=== PATIENT | male | born 1975 | race Caucasian/White ===

== ENCOUNTER 2020-07-20 16:42 | Inpatient (IN) | payer MEDICAID ==
[2020-07-20] MEDS ORDERED: Sodium Chloride 0.9% 1,000 ML IV SCH ×2 (17:00→22:30)
[2020-07-20] MEDS ORDERED: Sodium Chloride 0.9% 10 ML Syringe FLUSH PRN (17:00)
[2020-07-20] MEDS ORDERED: cefTRIAXone 2 GM in Sodium Chloride 0.9% 100 ML IV ONE (17:02)
--- NOTE | 2020-07-20 17:14 | EDM.PDOC ---
<Arnie Carrillo - Last Filed: 07/20/20 18:41> ED HPI GENERAL MEDICAL PROBLEM - General Chief Complaint: Lower Extremity Injury/Pain Stated Complaint: RT LEG INFECTION/SENT BY HERNANDEZ Time Seen by Provider: 07/20/20 16:52 Source of Information: Reports: Patient History Limitations: Reports: No Limitations - History of Present Illness INITIAL COMMENTS - FREE TEXT/NARRATIVE: The patient presents with right leg pain and swelling. He noticed this yesterday. He has an abrasion to his right lateral ankle for the past few weeks. He has swelling in his groin and to the anterior lower leg. There is erythema as well. He denies any recent injury. He has no fever or chills. He has no chest pain, shortness of breath, abdominal pain, nausea or vomiting. He has a history of hypertension but no history of DVT or PE. He is not sure if it is related but about 10 days ago he started having chapped lips and he has been using some salve and they are not going away. Onset: Gradual Duration: Day(s): Location: Reports: Lower Extremity, Right (leg) Quality: Reports: Sharp Severity: Moderate Improves with: Reports: Immobilization Worsens with: Reports: Movement Context: Denies: Trauma Associated Symptoms: Reports: No Other Symptoms Right Lower Leg Pain Score (Numeric/FACES): 8 - Related Data Allergies Allergy/AdvReac Type Severity Reaction Status Date / Time No Known Allergies Allergy Verified 07/20/20 16:55 Home Meds: Home Meds ARIPiprazole [Abilify] 15 mg PO DAILY 07/20/20 [History] amLODIPine [Norvasc] 10 mg PO DAILY 07/20/20 [History] lisinopriL [Lisinopril] 10 mg PO DAILY 07/20/20 [History] Past Medical History Cardiovascular History: Reports: Hypertension Respiratory History: Reports: Asthma Other Respiratory History: sports induced as a child Psychiatric History: Reports: Bipolar - Infectious Disease History Infectious Disease History: Reports: Chicken Pox, Hepatitis C - Past Surgical History HEENT Surgical History: Reports: Oral Surgery Social & Family History - Family History Family Medical History: No Pertinent Family History - Tobacco Use Tobacco Use Status *Q: Current Every Day Tobacco User Years of Tobacco use: 7 Packs/Tins Daily: 1 - Caffeine Use Caffeine Use: Reports: Coffee, Energy Drinks - Recreational Drug Use Recreational Drug Use: Yes Drug Use in Last 12 Months: No Review of Systems - Review of Systems Review Of Systems: See Below Constitutional: Reports: No Symptoms Eyes: Reports: No Symptoms Ears: Reports: No Symptoms Nose: Reports: No Symptoms Mouth/Throat: Reports: No Symptoms Respiratory: Reports: No Symptoms Cardiovascular: Reports: No Symptoms GI/Abdominal: Reports: No Symptoms Genitourinary: Reports: No Symptoms Musculoskeletal: Reports: Other (Pain, swelling and erythema to the right leg) ED EXAM, GENERAL - Physical Exam Exam: See Below Exam Limited By: No Limitations General Appearance: Alert, No Apparent Distress Ears: Normal External Exam Nose: Normal Inspection Throat/Mouth: Other (Dry chapped lips) Head: Atraumatic, Normocephalic Neck: Normal Inspection Respiratory/Chest: No Respiratory Distress, Lungs Clear, Normal Breath Sounds Cardiovascular: Regular Rate, Rhythm, No Edema, No Murmur GI/Abdominal: Soft, Non-Tender, No Organomegaly, No Mass Extremities: Other (Edema to the right groin. Erythem and edema to the front of the right ankle and lower leg with streaking up the lower leg just below the right knee. Edema to the lower leg and ankle with an old abrasion to the right lateral ankle.) Course - Re-Assessments/Exams Free Text/Narrative Re-Assessment/Exam: 07/20/20 17:14 I ordered an IV NS at 125ml?hr, blood cultures, lactic acid, labs, x-ray of his tib/fib on the right, US of his right leg and rocephin 2 grams IV. 07/20/20 18:18 His x-ray shows no fracture. His WBC was elevated at 27.42. His Hgb was low at 11.5. I am waiting for the rest of his labs and US. 07/20/20 18:41 His PT and PTT look good. His K was low at 2.5. I have ordered potassium 40meq PO. His lactic acid is low at 2.2. 07/20/20 18:42 My nursing staff is having trouble getting an IV. [employer] MACHINIST is coming in to try. Departure - Departure Disposition: Admitted As Inpatient 68 Clinical Impression: Cellulitis of right leg, Inguinal lymphadenopathy - Discharge Information Referrals: Arya Mccray MD [Primary Care Provider] - Forms: ED Department Discharge Sepsis Event Note (ED) - Evaluation Sepsis Screening Result: No Definite Risk <Jimbo Urias Lorena - Last Filed: 07/20/20 19:44> Course - Vital Signs Last Recorded V/S: Last Vital Signs Temp 36.9 C 07/20/20 16:50 Pulse 108 H 07/20/20 16:50 Resp 20 07/20/20 16:50 BP 157/89 H 07/20/20 16:50 Pulse Ox 100 07/20/20 16:50 - Orders/Labs/Meds Orders: Active Orders 24 hr Category Date Time Status Peripheral IV Care [RC] . DIRECTED Care 07/20/20 17:01 Active CORONAVIRUS COVID-19 SISSY [MOLEC] Stat Lab 07/20/20 19:15 Received CULTURE BLOOD [BC] Stat Lab 07/20/20 17:43 Received CULTURE BLOOD [BC] Stat Lab 07/20/20 18:38 Received Sodium Chloride 0.9% [Normal Saline] 1,000 ml Med 07/20/20 17:00 Active IV ASDIRECTED Sodium Chloride 0.9% [Saline Flush] Med 07/20/20 17:00 Active 10 ml FLUSH ASDIRECTED PRN Blood Culture x2 Reflex Set [OM.PC] Stat Oth 07/20/20 17:01 Ordered Peripheral IV Insertion Adult [OM.PC] Stat Oth 07/20/20 17:00 Ordered Medication Orders Sodium Chloride (Normal Saline) 1,000 mls @ 125 mls/hr IV ASDIRECTED DESHAWN Sodium Chloride (Sodium Chloride 0.9% 10 Ml Syringe) 10 ml FLUSH ASDIRECTED PRN PRN Reason: Keep Vein Open Last Admin: 07/20/20 19:30 Dose: 10 ml Documented by: Labs: Laboratory Tests 07/20/20 07/20/20 07/20/20 Range/Units 17:42 17:42 17:42 WBC 27.42 H (4.23-9.07) K/mm3 RBC 3.95 L (4.63-6.08) M/mm3 Hgb 11.5 L (13.7-17.5) gm/dl Hct 34.7 L (40.1-51.0) % MCV 87.8 (79.0-92.2) fl MCH 29.1 (25.7-32.2) pg MCHC 33.1 (32.2-35.5) g/dl RDW Std Deviation 41.3 (35.1-43.9) fL Plt Count 247 (163-337) K/mm3 MPV 10.6 (9.4-12.3) fl Neut % (Auto) 77.6 H (34.0-67.9) % Lymph % (Auto) 11.6 L (21.8-53.1) % Treasure % (Auto) 10.3 (5.3-12.2) % Eos % (Auto) 0 L (0.8-7.0) Baso % (Auto) 0.1 (0.1-1.2) % Neut # (Auto) 21.26 H (1.78-5.38) K/mm3 Lymph # (Auto) 3.19 (1.32-3.57) K/mm3 Treasure # (Auto) 2.82 H (0.30-0.82) K/mm3 Eos # (Auto) 0.01 L (0.04-0.54) K/mm3 Baso # (Auto) 0.03 (0.01-0.08) K/mm3 Manual Slide Review Abnormal smear PT (9.7-12.0) SECONDS INR APTT (21.7-31.4) SECONDS Sodium 140 (136-145) mEq/L Potassium 2.5 L (3.5-5.1) mEq/L Chloride 99 (98-107) mEq/L Carbon Dioxide 31 (21-32) mEq/L Anion Gap 12.5 (5-15) BUN 9 (7-18) mg/dL Creatinine 1.1 (0.7-1.3) mg/dL Est Cr Clr Drug Dosing 96.02 mL/min Estimated GFR (MDRD) > 60 (>60) mL/min BUN/Creatinine Ratio 8.2 L (14-18) Glucose 89 (74-106) mg/dL Lactic Acid 2.2 H* (0.4-2.0) mmol/L Calcium 9.1 (8.5-10.1) mg/dL Total Bilirubin 0.5 (0.2-1.0) mg/dL AST 12 L (15-37) U/L ALT 17 (16-63) U/L Alkaline Phosphatase 62 (46-116) U/L Total Protein 8.1 (6.4-8.2) g/dl Albumin 2.8 L (3.4-5.0) g/dl Globulin 5.3 gm/dL Albumin/Globulin Ratio 0.5 L (1-2) 07/20/20 Range/Units 17:42 WBC (4.23-9.07) K/mm3 RBC (4.63-6.08) M/mm3 Hgb (13.7-17.5) gm/dl Hct (40.1-51.0) % MCV (79.0-92.2) fl MCH (25.7-32.2) pg MCHC (32.2-35.5) g/dl RDW Std Deviation (35.1-43.9) fL Plt Count (163-337) K/mm3 MPV (9.4-12.3) fl Neut % (Auto) (34.0-67.9) % Lymph % (Auto) (21.8-53.1) % Treasure % (Auto) (5.3-12.2) % Eos % (Auto) (0.8-7.0) Baso % (Auto) (0.1-1.2) % Neut # (Auto) (1.78-5.38) K/mm3 Lymph # (Auto) (1.32-3.57) K/mm3 Treasure # (Auto) (0.30-0.82) K/mm3 Eos # (Auto) (0.04-0.54) K/mm3 Baso # (Auto) (0.01-0.08) K/mm3 Manual Slide Review PT 11.7 (9.7-12.0) SECONDS INR 1.10 APTT 30.6 (21.7-31.4) SECONDS Sodium (136-145) mEq/L Potassium (3.5-5.1) mEq/L Chloride (98-107) mEq/L Carbon Dioxide (21-32) mEq/L Anion Gap (5-15) BUN (7-18) mg/dL Creatinine (0.7-1.3) mg/dL Est Cr Clr Drug Dosing mL/min Estimated GFR (MDRD) (>60) mL/min BUN/Creatinine Ratio (14-18) Glucose (74-106) mg/dL Lactic Acid (0.4-2.0) mmol/L Calcium (8.5-10.1) mg/dL Total Bilirubin (0.2-1.0) mg/dL AST (15-37) U/L ALT (16-63) U/L Alkaline Phosphatase (46-116) U/L Total Protein (6.4-8.2) g/dl Albumin (3.4-5.0) g/dl Globulin gm/dL Albumin/Globulin Ratio (1-2) Meds: Medications Generic Name Dose Route Start Last Admin Trade Name Freq PRN Reason Stop Dose Admin Sodium Chloride 1,000 mls @ 125 mls/hr 07/20/20 17:00 Normal Saline IV ASDIRECTED DESHAWN Sodium Chloride 10 ml 07/20/20 17:00 07/20/20 19:30 Sodium Chloride 0.9% 10 Ml Syringe FLUSH 10 ml ASDIRECTED PRN Administration Keep Vein Open Discontinued Medications Generic Name Dose Route Start Last Admin Trade Name Freq PRN Reason Stop Dose Admin Ceftriaxone Sodium 2 gm/ 100 mls @ 200 mls/hr 07/20/20 17:02 Sodium Chloride IV 07/20/20 17:31 ONETIME ONE Sodium Chloride 1,000 mls @ 1,000 mls/hr 07/20/20 18:27 07/20/20 19:29 Normal Saline IV 07/20/20 19:26 1,000 mls/hr ONETIME ONE Administration Potassium Chloride 40 meq 07/20/20 18:27 07/20/20 19:34 Potassium Chloride 20 Meq Tab.Er PO 07/20/20 18:28 40 meq ONETIME ONE Administration - Radiology Interpretation Free Text/Narrative:: Venous Doppler of the right leg shows no findings of deep vein thrombosis there is a large lymph node within the right groin most of these nodes have normal echogenic fatty center with one lymph node having an abnormal hypoechoic area this lymph node measures 2.0 cm this could be inflammatory or neoplastic. Case discussed with Dr. Healy hospitalist the patient will be admitted to him he is already started on Rocephin. Departure - Departure Time of Disposition: 19:42 Sepsis Event Note (ED) - Focused Exam Vital Signs: Vital Signs Temp Pulse Resp BP Pulse Ox 07/20/20 16:50 36.9 C 108 H 20 157/89 H 100
--- NOTE | 2020-07-20 18:07 | CR ---
Tibia and fibula: AP and lateral views of the right tibia and fibula were obtained. Comparison: No previous study. No acute fracture or other bony abnormality is seen. Soft tissue swelling is noted anteriorly within the lower extremity. Impression: 1. Soft tissue swelling. 2. No acute osseous abnormality is appreciated. Diagnostic code #2
[2020-07-20] MEDS ORDERED: Sodium Chloride 0.9% 1,000 ML IV ONE (18:27)
[2020-07-20] MEDS ORDERED: Potassium Chloride 20 MEQ Tab.ER PO ONE (18:27)
--- NOTE | 2020-07-20 19:20 | US ---
Right lower extremity deep venous ultrasound: Duplex and color Doppler evaluation was obtained of the right common femoral, proximal greater saphenous, superficial femoral, popliteal, posterior tibial and peroneal veins. Left common femoral vein was also evaluated. Findings: Multiple lymph nodes are seen within the right groin. Most of these have hyperechoic centers with one area appearing hypoechoic and slightly abnormal in appearance and measuring 2.0 cm. Normal phasic flow, augmentation and compression is seen. Impression: 1. Lymph nodes within the right groin. Most of these lymph nodes have a normal echogenic fatty center with one lymph node having an abnormal hypoechoic area. Abnormal lymph node measures 2.0 cm. This can be abnormal because of neoplasm or inflammation. 2. No findings of deep venous thrombosis is seen with the right lower extremity or within the left common femoral vein. Diagnostic code #3
--- NOTE | 2020-07-20 19:50 | PCM.SN.2 ---
- Free Text/Narrative Note: Called to ER for difficult IV insertion. Multiple previous failed attempts my nursing staff. 20 gauge IV inserted in the left basilic vein. IV start kit utilized and inserted with standard protocol. Good blood return and flushed with 20 ml 0.9NS. Secured with transparent dressing and tape. Reported to nursing staff.
[2020-07-20] MEDS ORDERED: Sodium Chloride 0.9% 100 ML ONE (19:59)
[2020-07-20] MEDS ORDERED: cefTRIAXone 2 GM AdvVial IV ONE (19:59)
[2020-07-20] MEDS ORDERED: Ondansetron 4 MG Tab.DIS PO PRN (20:23)
[2020-07-20] MEDS: Potassium Chloride 10 MEQ in Premix Bag 1 BAG IV SCH ×3 (21:33→23:37)
[2020-07-21] MEDS: Potassium Chloride 10 MEQ in Premix Bag 1 BAG IV SCH ×5 (00:41→13:33)
--- NOTE | 2020-07-21 08:11 | PCM.HP.2 ---
H&P History of Present Illness - General Date of Service: 07/20/20 Admit Problem/Dx: Admission Diagnosis/Problem Admission Diagnosis/Problem Cellulitis - History of Present Illness Initial Comments - Free Text/Narative: 45-year-old male who presents to the emergency department after hitting his right ankle at work approximately 1 month ago. Patient states that over the last 24+ hours the pain has worsened and the swelling has gotten severe. He also noted that he has some swelling and nodules in his right side of his groin. Patient states he has had some fevers type feeling and significant sharp pain in that right leg. He has a history of bipolar disorder and hypertension otherwise nothing significant and no diabetes. In the emergency department his white blood cell count was 27,000 and lactic acid of 2.2. Patient was started on Rocephin in the emergency department and had blood cultures. X-ray of the right lower extremity showed no lytic lesions and lower extremity Doppler showed lymph nodes within the right groin. There is one abnormal lymph node measuring 2.0 cm. This can be abnormal because of neoplasm or inflammation. This is likely inflammation considering the underlying condition causing the lymphadenopathy. No DVT. Right Lower Leg Pain Score (Numeric/FACES): 8 - Related Data Allergies/Adverse Reactions: Allergies Allergy/AdvReac Type Severity Reaction Status Date / Time codeine Allergy Vomiting Verified 07/20/20 22:08 Home Medications: Home Meds ARIPiprazole [Abilify] 15 mg PO DAILY 07/20/20 [History] amLODIPine [Norvasc] 10 mg PO DAILY 07/20/20 [History] lisinopriL [Lisinopril] 10 mg PO DAILY 07/20/20 [History] Past Medical History Cardiovascular History: Reports: Hypertension Other Cardiovascular History: QT syndrome. "Heart murmur/palpitations". Respiratory History: Reports: Asthma Other Respiratory History: sports induced as a child Gastrointestinal History: Reports: GERD Neurological History: Reports: Migraines, Other (See Below) Other Neuro History: Brain "hemmorhage." Psychiatric History: Reports: Bipolar Hematologic History: Reports: B12 Deficiency Dermatologic History: Reports: Cellulitis - Infectious Disease History Infectious Disease History: Reports: Chicken Pox, Hepatitis C - Past Surgical History HEENT Surgical History: Reports: Oral Surgery Cardiovascular Surgical History: Reports: None Respiratory Surgical History: Reports: None GI Surgical History: Reports: None Social & Family History - Family History Family Medical History: No Pertinent Family History - Tobacco Use Tobacco Use Status *Q: Current Every Day Tobacco User Years of Tobacco use: 7 Packs/Tins Daily: 1 - Caffeine Use Caffeine Use: Reports: Coffee, Energy Drinks, Soda, Tea - Recreational Drug Use Recreational Drug Use: No Drug Use in Last 12 Months: No H&P Review of Systems - Review of Systems: Review Of Systems: Comprehensive ROS is negative, except as noted in HPI. Exam - Exam Exam: See Below - Vital Signs Vital Signs: Last Vital Signs Temp 98.6 F 07/21/20 07:41 Pulse 87 07/21/20 07:41 Resp 12 07/21/20 07:41 BP 137/80 07/21/20 07:41 Pulse Ox 99 07/21/20 07:41 Weight: 214 lb 3.2 oz - Exam Quality Assessment: No: Supplemental Oxygen General: Alert, Oriented, 4 HEENT: Conjunctiva Clear, Mucosa Moist & [place], Normal Nasal Septum, Other (Lips have open cracked sores worse on the bottom lip) Neck: Supple, Trachea Midline, 2 Lungs: Clear to Auscultation, Normal Respiratory Effort Cardiovascular: Regular Rate, Regular Rhythm GI/Abdominal Exam: Normal Bowel Sounds, Soft, Non-Tender, No Organomegaly, No Distention, No Abnormal Bruit (Male) Exam: Inguinal Lymphadenopathy, Other (Right inguinal lymphadenopathy) Back Exam: Normal Inspection, Full Range of Motion, NT Extremities: Other (Right lower extremity with erythema and tenderness. Swelling at the anterior aspect of the distal lower extremity.) Peripheral Pulses: 2+: Posterior Tibial (L), Posterior Tibial (R), Dorsalis Pedis (L), Dorsalis Pedis (R) Skin: Other (Skin breakdown at the right lateral malleolus) Neurological: Cranial Nerves Intact Neuro Extensive - Mental Status: Alert, Oriented x3, Normal Mood/Affect, Normal Cognition, Memory Intact Psychiatric: Alert, Normal Affect, Normal Mood - Patient Data Lab Results Last 24 hrs: Laboratory Results - last 24 hr 07/20/20 07/20/20 07/20/20 Range/Units 17:42 17:42 17:42 WBC 27.42 H (4.23-9.07) K/mm3 RBC 3.95 L (4.63-6.08) M/mm3 Hgb 11.5 L (13.7-17.5) gm/dl Hct 34.7 L (40.1-51.0) % MCV 87.8 (79.0-92.2) fl MCH 29.1 (25.7-32.2) pg MCHC 33.1 (32.2-35.5) g/dl RDW Std Deviation 41.3 (35.1-43.9) fL Plt Count 247 (163-337) K/mm3 MPV 10.6 (9.4-12.3) fl Neut % (Auto) 77.6 H (34.0-67.9) % Lymph % (Auto) 11.6 L (21.8-53.1) % Price % (Auto) 10.3 (5.3-12.2) % Eos % (Auto) 0 L (0.8-7.0) Baso % (Auto) 0.1 (0.1-1.2) % Neut # (Auto) 21.26 H (1.78-5.38) K/mm3 Lymph # (Auto) 3.19 (1.32-3.57) K/mm3 Price # (Auto) 2.82 H (0.30-0.82) K/mm3 Eos # (Auto) 0.01 L (0.04-0.54) K/mm3 Baso # (Auto) 0.03 (0.01-0.08) K/mm3 Manual Slide Review Abnormal smear PT (9.7-12.0) SECONDS INR APTT (21.7-31.4) SECONDS Sodium 140 (136-145) mEq/L Potassium 2.5 L (3.5-5.1) mEq/L Chloride 99 (98-107) mEq/L Carbon Dioxide 31 (21-32) mEq/L Anion Gap 12.5 (5-15) BUN 9 (7-18) mg/dL Creatinine 1.1 (0.7-1.3) mg/dL Est Cr Clr Drug Dosing 96.02 mL/min Estimated GFR (MDRD) > 60 (>60) mL/min BUN/Creatinine Ratio 8.2 L (14-18) Glucose 89 (74-106) mg/dL Lactic Acid 2.2 H* (0.4-2.0) mmol/L Calcium 9.1 (8.5-10.1) mg/dL Magnesium (1.8-2.4) mg/dl Total Bilirubin 0.5 (0.2-1.0) mg/dL AST 12 L (15-37) U/L ALT 17 (16-63) U/L Alkaline Phosphatase 62 (46-116) U/L C-Reactive Protein (<1.0) mg/dL Total Protein 8.1 (6.4-8.2) g/dl Albumin 2.8 L (3.4-5.0) g/dl Globulin 5.3 gm/dL Albumin/Globulin Ratio 0.5 L (1-2) SARS-CoV-2 RNA (SISSY) (NEGATIVE) 07/20/20 07/20/20 07/20/20 Range/Units 17:42 19:15 23:32 WBC (4.23-9.07) K/mm3 RBC (4.63-6.08) M/mm3 Hgb (13.7-17.5) gm/dl Hct (40.1-51.0) % MCV (79.0-92.2) fl MCH (25.7-32.2) pg MCHC (32.2-35.5) g/dl RDW Std Deviation (35.1-43.9) fL Plt Count (163-337) K/mm3 MPV (9.4-12.3) fl Neut % (Auto) (34.0-67.9) % Lymph % (Auto) (21.8-53.1) % Price % (Auto) (5.3-12.2) % Eos % (Auto) (0.8-7.0) Baso % (Auto) (0.1-1.2) % Neut # (Auto) (1.78-5.38) K/mm3 Lymph # (Auto) (1.32-3.57) K/mm3 Price # (Auto) (0.30-0.82) K/mm3 Eos # (Auto) (0.04-0.54) K/mm3 Baso # (Auto) (0.01-0.08) K/mm3 Manual Slide Review PT 11.7 (9.7-12.0) SECONDS INR 1.10 APTT 30.6 (21.7-31.4) SECONDS Sodium (136-145) mEq/L Potassium (3.5-5.1) mEq/L Chloride (98-107) mEq/L Carbon Dioxide (21-32) mEq/L Anion Gap (5-15) BUN (7-18) mg/dL Creatinine (0.7-1.3) mg/dL Est Cr Clr Drug Dosing mL/min Estimated GFR (MDRD) (>60) mL/min BUN/Creatinine Ratio (14-18) Glucose (74-106) mg/dL Lactic Acid 0.7 (0.4-2.0) mmol/L Calcium (8.5-10.1) mg/dL Magnesium (1.8-2.4) mg/dl Total Bilirubin (0.2-1.0) mg/dL AST (15-37) U/L ALT (16-63) U/L Alkaline Phosphatase (46-116) U/L C-Reactive Protein (<1.0) mg/dL Total Protein (6.4-8.2) g/dl Albumin (3.4-5.0) g/dl Globulin gm/dL Albumin/Globulin Ratio (1-2) SARS-CoV-2 RNA (SISSY) Negative (NEGATIVE) 07/21/20 07/21/20 Range/Units 04:53 04:53 WBC 17.56 H (4.23-9.07) K/mm3 RBC 3.80 L (4.63-6.08) M/mm3 Hgb 11.2 L (13.7-17.5) gm/dl Hct 33.6 L (40.1-51.0) % MCV 88.4 (79.0-92.2) fl MCH 29.5 (25.7-32.2) pg MCHC 33.3 (32.2-35.5) g/dl RDW Std Deviation 42.2 (35.1-43.9) fL Plt Count 239 (163-337) K/mm3 MPV 11.5 (9.4-12.3) fl Neut % (Auto) 74.9 H (34.0-67.9) % Lymph % (Auto) 14.7 L (21.8-53.1) % Price % (Auto) 9.6 (5.3-12.2) % Eos % (Auto) 0.3 L (0.8-7.0) Baso % (Auto) 0.2 (0.1-1.2) % Neut # (Auto) 13.16 H (1.78-5.38) K/mm3 Lymph # (Auto) 2.59 (1.32-3.57) K/mm3 Price # (Auto) 1.68 H (0.30-0.82) K/mm3 Eos # (Auto) 0.05 (0.04-0.54) K/mm3 Baso # (Auto) 0.03 (0.01-0.08) K/mm3 Manual Slide Review Abnormal smear PT (9.7-12.0) SECONDS INR APTT (21.7-31.4) SECONDS Sodium 142 (136-145) mEq/L Potassium 2.7 L (3.5-5.1) mEq/L Chloride 105 (98-107) mEq/L Carbon Dioxide 27 (21-32) mEq/L Anion Gap 12.7 (5-15) BUN 10 (7-18) mg/dL Creatinine 1.0 (0.7-1.3) mg/dL Est Cr Clr Drug Dosing 105.62 mL/min Estimated GFR (MDRD) > 60 (>60) mL/min BUN/Creatinine Ratio 10.0 L (14-18) Glucose 97 (74-106) mg/dL Lactic Acid (0.4-2.0) mmol/L Calcium 8.7 (8.5-10.1) mg/dL Magnesium 1.8 (1.8-2.4) mg/dl Total Bilirubin 0.5 (0.2-1.0) mg/dL AST 19 (15-37) U/L ALT 17 (16-63) U/L Alkaline Phosphatase 57 (46-116) U/L C-Reactive Protein 22.7 H* (<1.0) mg/dL Total Protein 7.6 (6.4-8.2) g/dl Albumin 2.5 L (3.4-5.0) g/dl Globulin 5.1 gm/dL Albumin/Globulin Ratio 0.5 L (1-2) SARS-CoV-2 RNA (SISSY) (NEGATIVE) Result Diagrams: 07/21/20 04:53 07/21/20 04:53 Sepsis Event Note - Evaluation Sepsis Screening Result: No Definite Risk - Focused Exam Vital Signs: Vital Signs Temp Pulse Resp BP Pulse Ox 07/21/20 07:41 98.6 F 87 12 137/80 99 07/21/20 03:40 98.2 F 88 19 152/84 H 96 07/20/20 23:41 99.1 F 92 18 151/79 H 95 07/20/20 20:39 98.1 F 108 H 19 141/90 H 98 - Problem List (1) Hypokalemia SNOMED Code(s): 36829195 ICD Code: E87.6 - HYPOKALEMIA Status: Acute Current Visit: Yes (2) Hypoalbuminemia SNOMED Code(s): 375945366 ICD Code: E88.09 - OTH DISORDERS OF PLASMA-PROTEIN METABOLISM, NEC Status: Acute Current Visit: Yes (3) Cellulitis of right leg SNOMED Code(s): 308289342 ICD Code: L03.115 - CELLULITIS OF RIGHT LOWER LIMB Status: Acute Current Visit: Yes (4) Inguinal lymphadenopathy SNOMED Code(s): 418563972 ICD Code: R59.0 - LOCALIZED ENLARGED LYMPH NODES Status: Acute Current Visit: Yes Problem List Initiated/Reviewed/Updated: Yes Orders Last 24hrs: Active Orders 24 hr Category Date Time Status Admission Status [Patient Status] [ADT] Routine ADT 07/20/20 20:14 Active Oxygen Therapy [RC] PRN Care 07/20/20 20:23 Active Up ad [place] [RC] BID Care 07/20/20 20:23 Active VTE/DVT Education [RC] DAILY Care 07/20/20 20:23 Active Vital Signs [RC] Q4HR Care 07/20/20 20:23 Active Regular Diet [DIET] Diet 07/21/20 Breakfast Active CULTURE BLOOD [BC] Stat Lab 07/20/20 17:43 Received CULTURE BLOOD [BC] Stat Lab 07/20/20 18:38 Received PROCALCITONIN [REF] Routine Lab 07/20/20 18:33 Received ARIPiprazole [Abilify] Med 07/21/20 09:00 Active 15 mg PO DAILY Acetaminophen [TylenoL] Med 07/20/20 20:23 Active 650 mg PO Q4H PRN Enoxaparin [Lovenox] Med 07/21/20 09:00 Active 40 mg SUBCUT DAILY Ondansetron [Zofran ODT] Med 07/20/20 20:23 Active 4 mg PO Q4H PRN Sodium Chloride 0.9% [Normal Saline] 1,000 ml Med 07/20/20 17:00 Active IV ASDIRECTED Sodium Chloride 0.9% [Saline Flush] Med 07/20/20 17:00 Active 10 ml FLUSH ASDIRECTED PRN amLODIPine [Norvasc] Med 07/21/20 09:00 Active 10 mg PO DAILY cefTRIAXone [Rocephin] 2 gm Med 07/21/20 18:00 Active Sodium Chloride 0.9% [Normal Saline] 100 ml IV Q24H lisinopriL [Prinivil] Med 07/21/20 09:00 Active 10 mg PO DAILY oxyCODONE Med 07/20/20 20:23 Active 5 mg PO Q4H PRN Blood Culture x2 Reflex Set [OM.PC] Stat Oth 07/20/20 17:01 Ordered Peripheral IV Insertion Adult [OM.PC] Stat Oth 07/20/20 17:00 Ordered Resuscitation Status Routine Resus Stat 07/20/20 20:23 Ordered Medication Orders Acetaminophen (Acetaminophen 325 Mg Tab) 650 mg PO Q4H PRN PRN Reason: Pain (Mild 1-3)/fever Amlodipine Besylate (Amlodipine 10 Mg Tab) 10 mg PO DAILY [facility] Aripiprazole (Aripiprazole 10 Mg Tab) 15 mg PO DAILY [facility] Enoxaparin Sodium (Enoxaparin 40 Mg/0.4 Ml Syringe) 40 mg SUBCUT DAILY [facility] Sodium Chloride (Normal Saline) 1,000 mls @ 125 mls/hr IV ASDIRECTED [facility] Last Admin: 07/20/20 23:38 Dose: 125 mls/hr Documented by: DILEEP Ceftriaxone Sodium 2 gm/ (Sodium Chloride) 100 mls @ 200 mls/hr IV Q24H [facility] Lisinopril (Lisinopril 10 Mg Tab) 10 mg PO DAILY [facility] Ondansetron HCl (Ondansetron 4 Mg Tab.Dis) 4 mg PO Q4H PRN PRN Reason: nausea, able to take PO Oxycodone HCl (Oxycodone 5 Mg Tab) 5 mg PO Q4H PRN PRN Reason: Pain (moderate 4-6) Sodium Chloride (Sodium Chloride 0.9% 10 Ml Syringe) 10 ml FLUSH ASDIRECTED PRN PRN Reason: Keep Vein Open Last Admin: 07/20/20 19:30 Dose: 10 ml Documented by: SHILA Assessment/Plan Comment:: Assessment 44-year-old male with right lower extremity cellulitis. Cellulitis occurred post traumatic event of hitting the right lateral malleolus with subsequent skin breakdown. Right lower extremity cellulitis * Initial trauma occurred 1 month ago at work. * White count significantly elevated at 27,000 with lactic acid of 2.2. * Started on Rocephin in the emergency department * Patient complains of moderate to severe pain. Hypokalemia/hypoalbuminemia Moderate to severe protein calorie malnutrition Ulceration of the lips likely secondary to herpes simplex * Patient states he has not been eating well for the last 10 days since he started developing ulcers on his lower lip. * Potassium of 2.5 * Albumin 2.8 * Patient did eat well in the emergency department when given a turkey sandwich. Chronic medical: Bipolar and hypertension Home medications include Abilify, Norvasc, and lisinopril Plan * Admit to floor * Continue Rocephin * Dietary consult * Replace electrolytes * Await blood cultures * IV fluids, normal saline at 125 mL/h until lactic acid is less than 2 * Continue home medications * VTE prophylaxis with Lovenox * CODE STATUS: Full code - Mortality Measure Prognosis:: Good
[2020-07-21] MEDS ORDERED: amLODIPine 5 MG Tab PO SCH (09:00)
[2020-07-21] MEDS: Enoxaparin 40 MG/0.4 ML Syringe SUBCUT SCH (09:52)
[2020-07-21] MEDS: ARIPiprazole 10 MG Tab PO SCH (09:53)
[2020-07-21] MEDS: Potassium Chloride 20 MEQ Tab.ER PO SCH ×2 (09:54→20:12)
[2020-07-21] MEDS: Magnesium Oxide 400 MG Tab PO SCH ×2 (09:54→20:12)
[2020-07-21] MEDS: amLODIPine 10 MG Tab PO SCH (09:55)
[2020-07-21] MEDS: Lisinopril 10 MG Tab PO SCH (09:55)
[2020-07-21] MEDS: oxyCODONE 5 MG Tab PO PRN ×2 (10:04→17:16)
--- NOTE | 2020-07-21 10:23 | PCM.PN ---
- General Info Date of Service: 07/21/20 Admission Dx/Problem (Free Text): Admission Diagnosis/Problem Admission Diagnosis/Problem Cellulitis Subjective Update: No significant change overnight. Patient continues to complain of moderate to severe pain of the right lower extremity. No fevers overnight. Lactic acid dropped to 0.7 with fluids. Functional Status: Reports: Pain Controlled (With pain medication) - Review of Systems General: Reports: No Symptoms HEENT: Reports: Other (Lips cracked and sore) Pulmonary: Reports: No Symptoms Cardiovascular: Reports: No Symptoms Gastrointestinal: Reports: No Symptoms Genitourinary: Reports: Other (Tender right inguinal lymphadenopathy) Musculoskeletal: Reports: No Symptoms Skin: Reports: No Symptoms Neurological: Reports: No Symptoms Psychiatric: Reports: No Symptoms - Patient Data Vitals - Most Recent: Last Vital Signs Temp 98.6 F 07/21/20 07:41 Pulse 87 07/21/20 07:41 Resp 12 07/21/20 07:41 BP 138/80 07/21/20 09:55 Pulse Ox 99 07/21/20 07:41 Weight - Most Recent: 214 lb 3.2 oz I&O - Last 24 Hours: Intake & Output 07/20/20 07/21/20 07/21/20 22:59 06:59 14:59 Intake Total 1900 180 Output Total 450 Balance 1450 180 Lab Results Last 24 Hours: Laboratory Results - last 24 hr 07/20/20 07/20/20 07/20/20 Range/Units 17:42 17:42 17:42 WBC 27.42 H (4.23-9.07) K/mm3 RBC 3.95 L (4.63-6.08) M/mm3 Hgb 11.5 L (13.7-17.5) gm/dl Hct 34.7 L (40.1-51.0) % MCV 87.8 (79.0-92.2) fl MCH 29.1 (25.7-32.2) pg MCHC 33.1 (32.2-35.5) g/dl RDW Std Deviation 41.3 (35.1-43.9) fL Plt Count 247 (163-337) K/mm3 MPV 10.6 (9.4-12.3) fl Neut % (Auto) 77.6 H (34.0-67.9) % Lymph % (Auto) 11.6 L (21.8-53.1) % Elk % (Auto) 10.3 (5.3-12.2) % Eos % (Auto) 0 L (0.8-7.0) Baso % (Auto) 0.1 (0.1-1.2) % Neut # (Auto) 21.26 H (1.78-5.38) K/mm3 Lymph # (Auto) 3.19 (1.32-3.57) K/mm3 Elk # (Auto) 2.82 H (0.30-0.82) K/mm3 Eos # (Auto) 0.01 L (0.04-0.54) K/mm3 Baso # (Auto) 0.03 (0.01-0.08) K/mm3 Manual Slide Review Abnormal smear PT (9.7-12.0) SECONDS INR APTT (21.7-31.4) SECONDS Sodium 140 (136-145) mEq/L Potassium 2.5 L (3.5-5.1) mEq/L Chloride 99 (98-107) mEq/L Carbon Dioxide 31 (21-32) mEq/L Anion Gap 12.5 (5-15) BUN 9 (7-18) mg/dL Creatinine 1.1 (0.7-1.3) mg/dL Est Cr Clr Drug Dosing 96.02 mL/min Estimated GFR (MDRD) > 60 (>60) mL/min BUN/Creatinine Ratio 8.2 L (14-18) Glucose 89 (74-106) mg/dL Lactic Acid 2.2 H* (0.4-2.0) mmol/L Calcium 9.1 (8.5-10.1) mg/dL Magnesium (1.8-2.4) mg/dl Total Bilirubin 0.5 (0.2-1.0) mg/dL AST 12 L (15-37) U/L ALT 17 (16-63) U/L Alkaline Phosphatase 62 (46-116) U/L C-Reactive Protein (<1.0) mg/dL Total Protein 8.1 (6.4-8.2) g/dl Albumin 2.8 L (3.4-5.0) g/dl Globulin 5.3 gm/dL Albumin/Globulin Ratio 0.5 L (1-2) SARS-CoV-2 RNA (SISSY) (NEGATIVE) 07/20/20 07/20/20 07/20/20 Range/Units 17:42 19:15 23:32 WBC (4.23-9.07) K/mm3 RBC (4.63-6.08) M/mm3 Hgb (13.7-17.5) gm/dl Hct (40.1-51.0) % MCV (79.0-92.2) fl MCH (25.7-32.2) pg MCHC (32.2-35.5) g/dl RDW Std Deviation (35.1-43.9) fL Plt Count (163-337) K/mm3 MPV (9.4-12.3) fl Neut % (Auto) (34.0-67.9) % Lymph % (Auto) (21.8-53.1) % Elk % (Auto) (5.3-12.2) % Eos % (Auto) (0.8-7.0) Baso % (Auto) (0.1-1.2) % Neut # (Auto) (1.78-5.38) K/mm3 Lymph # (Auto) (1.32-3.57) K/mm3 Elk # (Auto) (0.30-0.82) K/mm3 Eos # (Auto) (0.04-0.54) K/mm3 Baso # (Auto) (0.01-0.08) K/mm3 Manual Slide Review PT 11.7 (9.7-12.0) SECONDS INR 1.10 APTT 30.6 (21.7-31.4) SECONDS Sodium (136-145) mEq/L Potassium (3.5-5.1) mEq/L Chloride (98-107) mEq/L Carbon Dioxide (21-32) mEq/L Anion Gap (5-15) BUN (7-18) mg/dL Creatinine (0.7-1.3) mg/dL Est Cr Clr Drug Dosing mL/min Estimated GFR (MDRD) (>60) mL/min BUN/Creatinine Ratio (14-18) Glucose (74-106) mg/dL Lactic Acid 0.7 (0.4-2.0) mmol/L Calcium (8.5-10.1) mg/dL Magnesium (1.8-2.4) mg/dl Total Bilirubin (0.2-1.0) mg/dL AST (15-37) U/L ALT (16-63) U/L Alkaline Phosphatase (46-116) U/L C-Reactive Protein (<1.0) mg/dL Total Protein (6.4-8.2) g/dl Albumin (3.4-5.0) g/dl Globulin gm/dL Albumin/Globulin Ratio (1-2) SARS-CoV-2 RNA (SISSY) Negative (NEGATIVE) 07/21/20 07/21/20 Range/Units 04:53 04:53 WBC 17.56 H (4.23-9.07) K/mm3 RBC 3.80 L (4.63-6.08) M/mm3 Hgb 11.2 L (13.7-17.5) gm/dl Hct 33.6 L (40.1-51.0) % MCV 88.4 (79.0-92.2) fl MCH 29.5 (25.7-32.2) pg MCHC 33.3 (32.2-35.5) g/dl RDW Std Deviation 42.2 (35.1-43.9) fL Plt Count 239 (163-337) K/mm3 MPV 11.5 (9.4-12.3) fl Neut % (Auto) 74.9 H (34.0-67.9) % Lymph % (Auto) 14.7 L (21.8-53.1) % Elk % (Auto) 9.6 (5.3-12.2) % Eos % (Auto) 0.3 L (0.8-7.0) Baso % (Auto) 0.2 (0.1-1.2) % Neut # (Auto) 13.16 H (1.78-5.38) K/mm3 Lymph # (Auto) 2.59 (1.32-3.57) K/mm3 Elk # (Auto) 1.68 H (0.30-0.82) K/mm3 Eos # (Auto) 0.05 (0.04-0.54) K/mm3 Baso # (Auto) 0.03 (0.01-0.08) K/mm3 Manual Slide Review Abnormal smear PT (9.7-12.0) SECONDS INR APTT (21.7-31.4) SECONDS Sodium 142 (136-145) mEq/L Potassium 2.7 L (3.5-5.1) mEq/L Chloride 105 (98-107) mEq/L Carbon Dioxide 27 (21-32) mEq/L Anion Gap 12.7 (5-15) BUN 10 (7-18) mg/dL Creatinine 1.0 (0.7-1.3) mg/dL Est Cr Clr Drug Dosing 105.62 mL/min Estimated GFR (MDRD) > 60 (>60) mL/min BUN/Creatinine Ratio 10.0 L (14-18) Glucose 97 (74-106) mg/dL Lactic Acid (0.4-2.0) mmol/L Calcium 8.7 (8.5-10.1) mg/dL Magnesium 1.8 (1.8-2.4) mg/dl Total Bilirubin 0.5 (0.2-1.0) mg/dL AST 19 (15-37) U/L ALT 17 (16-63) U/L Alkaline Phosphatase 57 (46-116) U/L C-Reactive Protein 22.7 H* (<1.0) mg/dL Total Protein 7.6 (6.4-8.2) g/dl Albumin 2.5 L (3.4-5.0) g/dl Globulin 5.1 gm/dL Albumin/Globulin Ratio 0.5 L (1-2) SARS-CoV-2 RNA (SISSY) (NEGATIVE) Med Orders - Current: Current Medications Acetaminophen (Acetaminophen 325 Mg Tab) 650 mg PO Q4H PRN PRN Reason: Pain (Mild 1-3)/fever Amlodipine Besylate (Amlodipine 10 Mg Tab) 10 mg PO DAILY [facility] Last Admin: 07/21/20 09:55 Dose: 10 mg Documented by: Aripiprazole (Aripiprazole 10 Mg Tab) 15 mg PO DAILY [facility] Last Admin: 07/21/20 09:53 Dose: 15 mg Documented by: Enoxaparin Sodium (Enoxaparin 40 Mg/0.4 Ml Syringe) 40 mg SUBCUT DAILY [facility] Last Admin: 07/21/20 09:52 Dose: 40 mg Documented by: Ceftriaxone Sodium 2 gm/ (Sodium Chloride) 100 mls @ 200 mls/hr IV Q24H [facility] Potassium Chloride 10 meq/ (Premix) 100 mls @ 100 mls/hr IV Q1H [facility] Stop: 07/21/20 12:59 Last Admin: 07/21/20 09:55 Dose: 100 mls/hr Documented by: Lisinopril (Lisinopril 10 Mg Tab) 10 mg PO DAILY [facility] Last Admin: 07/21/20 09:55 Dose: 10 mg Documented by: Magnesium Oxide (Magnesium Oxide 400 Mg Tab) 400 mg PO BID [facility] Last Admin: 07/21/20 09:54 Dose: 400 mg Documented by: Ondansetron HCl (Ondansetron 4 Mg Tab.Dis) 4 mg PO Q4H PRN PRN Reason: nausea, able to take PO Oxycodone HCl (Oxycodone 5 Mg Tab) 5 mg PO Q4H PRN PRN Reason: Pain (moderate 4-6) Last Admin: 07/21/20 10:04 Dose: 5 mg Documented by: Potassium Chloride (Potassium Chloride 20 Meq Tab.Er) 40 meq PO BID [facility] Stop: 07/21/20 21:01 Last Admin: 07/21/20 09:54 Dose: 40 meq Documented by: Sodium Chloride (Sodium Chloride 0.9% 10 Ml Syringe) 10 ml FLUSH ASDIRECTED PRN PRN Reason: Keep Vein Open Last Admin: 07/20/20 19:30 Dose: 10 ml Documented by: Discontinued Medications Amlodipine Besylate (Amlodipine 5 Mg Tab) 10 mg PO DAILY [facility] Ceftriaxone Sodium (Ceftriaxone 2 Gm Advvial) Confirm Administered Dose 2 gm IV .STK-MED ONE Stop: 07/20/20 20:00 Last Admin: 07/20/20 20:09 Dose: Not Given Documented by: Ceftriaxone Sodium 2 gm/ (Sodium Chloride) 100 mls @ 200 mls/hr IV ONETIME ONE Stop: 07/20/20 17:31 Last Admin: 07/20/20 20:07 Dose: 200 mls/hr Documented by: Sodium Chloride (Normal Saline) 1,000 mls @ 125 mls/hr IV ASDIRECTED [facility] Last Admin: 07/20/20 23:38 Dose: 125 mls/hr Documented by: Sodium Chloride (Normal Saline) 1,000 mls @ 1,000 mls/hr IV ONETIME ONE Stop: 07/20/20 19:26 Last Infusion: 07/20/20 20:08 Dose: 125 mls/hr Documented by: Sodium Chloride (Normal Saline) Confirm Administered Dose 100 mls @ as directed .ROUTE .STK-MED ONE Stop: 07/20/20 20:00 Last Admin: 07/20/20 20:09 Dose: Not Given Documented by: Potassium Chloride 10 meq/ (Premix) 100 mls @ 100 mls/hr IV Q1H [facility] Stop: 07/21/20 00:29 Last Admin: 07/21/20 00:41 Dose: 100 mls/hr Documented by: Sodium Chloride (Normal Saline) 1,000 mls @ 125 mls/hr IV ASDIRECTED [facility] Potassium Chloride (Potassium Chloride 20 Meq Tab.Er) 40 meq PO ONETIME ONE Stop: 07/20/20 18:28 Last Admin: 07/20/20 19:34 Dose: 40 meq Documented by: - Exam Quality Assessment: No: Supplemental Oxygen General: Alert, Oriented HEENT: Pupils Equal, Mucous Membr. Moist/[place], Other (Dry cracked lips with ulcerations of the lower lip) Neck: Supple Cardiovascular: Regular Rate GI/Abdominal Exam: Normal Bowel Sounds, Soft, Non-Tender, No Organomegaly, No D istention, No Abnormal Bruit, No Mass, Pelvis Stable Extremities: Other (No significant change from yesterday. Continue erythema and swelling of the right lower extremity and ankle. Skin breakdown at the right ankle.) Skin: Warm, Dry. No: Intact Neurological: No New Focal Deficit Psy/Mental Status: Alert, Normal Affect, Normal Mood - Patient Data Lab Results Last 24 hrs: Laboratory Results - last 24 hr 07/20/20 07/20/20 07/20/20 Range/Units 17:42 17:42 17:42 WBC 27.42 H (4.23-9.07) K/mm3 RBC 3.95 L (4.63-6.08) M/mm3 Hgb 11.5 L (13.7-17.5) gm/dl Hct 34.7 L (40.1-51.0) % MCV 87.8 (79.0-92.2) fl MCH 29.1 (25.7-32.2) pg MCHC 33.1 (32.2-35.5) g/dl RDW Std Deviation 41.3 (35.1-43.9) fL Plt Count 247 (163-337) K/mm3 MPV 10.6 (9.4-12.3) fl Neut % (Auto) 77.6 H (34.0-67.9) % Lymph % (Auto) 11.6 L (21.8-53.1) % Elk % (Auto) 10.3 (5.3-12.2) % Eos % (Auto) 0 L (0.8-7.0) Baso % (Auto) 0.1 (0.1-1.2) % Neut # (Auto) 21.26 H (1.78-5.38) K/mm3 Lymph # (Auto) 3.19 (1.32-3.57) K/mm3 Elk # (Auto) 2.82 H (0.30-0.82) K/mm3 Eos # (Auto) 0.01 L (0.04-0.54) K/mm3 Baso # (Auto) 0.03 (0.01-0.08) K/mm3 Manual Slide Review Abnormal smear PT (9.7-12.0) SECONDS INR APTT (21.7-31.4) SECONDS Sodium 140 (136-145) mEq/L Potassium 2.5 L (3.5-5.1) mEq/L Chloride 99 (98-107) mEq/L Carbon Dioxide 31 (21-32) mEq/L Anion Gap 12.5 (5-15) BUN 9 (7-18) mg/dL Creatinine 1.1 (0.7-1.3) mg/dL Est Cr Clr Drug Dosing 96.02 mL/min Estimated GFR (MDRD) > 60 (>60) mL/min BUN/Creatinine Ratio 8.2 L (14-18) Glucose 89 (74-106) mg/dL Lactic Acid 2.2 H* (0.4-2.0) mmol/L Calcium 9.1 (8.5-10.1) mg/dL Magnesium (1.8-2.4) mg/dl Total Bilirubin 0.5 (0.2-1.0) mg/dL AST 12 L (15-37) U/L ALT 17 (16-63) U/L Alkaline Phosphatase 62 (46-116) U/L C-Reactive Protein (<1.0) mg/dL Total Protein 8.1 (6.4-8.2) g/dl Albumin 2.8 L (3.4-5.0) g/dl Globulin 5.3 gm/dL Albumin/Globulin Ratio 0.5 L (1-2) SARS-CoV-2 RNA (SISSY) (NEGATIVE) 07/20/20 07/20/20 07/20/20 Range/Units 17:42 19:15 23:32 WBC (4.23-9.07) K/mm3 RBC (4.63-6.08) M/mm3 Hgb (13.7-17.5) gm/dl Hct (40.1-51.0) % MCV (79.0-92.2) fl MCH (25.7-32.2) pg MCHC (32.2-35.5) g/dl RDW Std Deviation (35.1-43.9) fL Plt Count (163-337) K/mm3 MPV (9.4-12.3) fl Neut % (Auto) (34.0-67.9) % Lymph % (Auto) (21.8-53.1) % Elk % (Auto) (5.3-12.2) % Eos % (Auto) (0.8-7.0) Baso % (Auto) (0.1-1.2) % Neut # (Auto) (1.78-5.38) K/mm3 Lymph # (Auto) (1.32-3.57) K/mm3 Elk # (Auto) (0.30-0.82) K/mm3 Eos # (Auto) (0.04-0.54) K/mm3 Baso # (Auto) (0.01-0.08) K/mm3 Manual Slide Review PT 11.7 (9.7-12.0) SECONDS INR 1.10 APTT 30.6 (21.7-31.4) SECONDS Sodium (136-145) mEq/L Potassium (3.5-5.1) mEq/L Chloride (98-107) mEq/L Carbon Dioxide (21-32) mEq/L Anion Gap (5-15) BUN (7-18) mg/dL Creatinine (0.7-1.3) mg/dL Est Cr Clr Drug Dosing mL/min Estimated GFR (MDRD) (>60) mL/min BUN/Creatinine Ratio (14-18) Glucose (74-106) mg/dL Lactic Acid 0.7 (0.4-2.0) mmol/L Calcium (8.5-10.1) mg/dL Magnesium (1.8-2.4) mg/dl Total Bilirubin (0.2-1.0) mg/dL AST (15-37) U/L ALT (16-63) U/L Alkaline Phosphatase (46-116) U/L C-Reactive Protein (<1.0) mg/dL Total Protein (6.4-8.2) g/dl Albumin (3.4-5.0) g/dl Globulin gm/dL Albumin/Globulin Ratio (1-2) SARS-CoV-2 RNA (SISSY) Negative (NEGATIVE) 07/21/20 07/21/20 Range/Units 04:53 04:53 WBC 17.56 H (4.23-9.07) K/mm3 RBC 3.80 L (4.63-6.08) M/mm3 Hgb 11.2 L (13.7-17.5) gm/dl Hct 33.6 L (40.1-51.0) % MCV 88.4 (79.0-92.2) fl MCH 29.5 (25.7-32.2) pg MCHC 33.3 (32.2-35.5) g/dl RDW Std Deviation 42.2 (35.1-43.9) fL Plt Count 239 (163-337) K/mm3 MPV 11.5 (9.4-12.3) fl Neut % (Auto) 74.9 H (34.0-67.9) % Lymph % (Auto) 14.7 L (21.8-53.1) % Elk % (Auto) 9.6 (5.3-12.2) % Eos % (Auto) 0.3 L (0.8-7.0) Baso % (Auto) 0.2 (0.1-1.2) % Neut # (Auto) 13.16 H (1.78-5.38) K/mm3 Lymph # (Auto) 2.59 (1.32-3.57) K/mm3 Elk # (Auto) 1.68 H (0.30-0.82) K/mm3 Eos # (Auto) 0.05 (0.04-0.54) K/mm3 Baso # (Auto) 0.03 (0.01-0.08) K/mm3 Manual Slide Review Abnormal smear PT (9.7-12.0) SECONDS INR APTT (21.7-31.4) SECONDS Sodium 142 (136-145) mEq/L Potassium 2.7 L (3.5-5.1) mEq/L Chloride 105 (98-107) mEq/L Carbon Dioxide 27 (21-32) mEq/L Anion Gap 12.7 (5-15) BUN 10 (7-18) mg/dL Creatinine 1.0 (0.7-1.3) mg/dL Est Cr Clr Drug Dosing 105.62 mL/min Estimated GFR (MDRD) > 60 (>60) mL/min BUN/Creatinine Ratio 10.0 L (14-18) Glucose 97 (74-106) mg/dL Lactic Acid (0.4-2.0) mmol/L Calcium 8.7 (8.5-10.1) mg/dL Magnesium 1.8 (1.8-2.4) mg/dl Total Bilirubin 0.5 (0.2-1.0) mg/dL AST 19 (15-37) U/L ALT 17 (16-63) U/L Alkaline Phosphatase 57 (46-116) U/L C-Reactive Protein 22.7 H* (<1.0) mg/dL Total Protein 7.6 (6.4-8.2) g/dl Albumin 2.5 L (3.4-5.0) g/dl Globulin 5.1 gm/dL Albumin/Globulin Ratio 0.5 L (1-2) SARS-CoV-2 RNA (SISSY) (NEGATIVE) Result Diagrams: 07/21/20 04:53 07/21/20 04:53 Sepsis Event Note - Evaluation Sepsis Screening Result: No Definite Risk - Focused Exam Vital Signs: Vital Signs Temp Pulse Resp BP Pulse Ox 07/21/20 09:55 138/80 07/21/20 07:41 98.6 F 87 12 137/80 99 07/21/20 03:40 98.2 F 88 19 152/84 H 96 07/20/20 23:41 99.1 F 92 18 151/79 H 95 - Problem List & Annotations (1) Hypokalemia SNOMED Code(s): 06383021 Code(s): E87.6 - HYPOKALEMIA Status: Acute Current Visit: Yes (2) Hypoalbuminemia SNOMED Code(s): 876964368 Code(s): E88.09 - OTH DISORDERS OF PLASMA-PROTEIN METABOLISM, NEC Status: Acute Current Visit: Yes (3) Cellulitis of right leg SNOMED Code(s): 447422358 Code(s): L03.115 - CELLULITIS OF RIGHT LOWER LIMB Status: Acute Current Visit: Yes (4) Inguinal lymphadenopathy SNOMED Code(s): 126491745 Code(s): R59.0 - LOCALIZED ENLARGED LYMPH NODES Status: Acute Current Visit: Yes - Problem List Review Problem List Initiated/Reviewed/Updated: Yes - My Orders Last 24 Hours: My Active Orders 07/20/20 18:33 PROCALCITONIN [REF] Routine 07/20/20 20:23 Oxygen Therapy [RC] PRN Up ad Agueda [RC] BID VTE/DVT Education [RC] DAILY Vital Signs [RC] Q4HR Acetaminophen [TylenoL] 650 mg PO Q4H PRN Ondansetron [Zofran ODT] 4 mg PO Q4H PRN oxyCODONE 5 mg PO Q4H PRN Resuscitation Status Routine 07/21/20 Breakfast Regular Diet [DIET] 07/21/20 09:00 ARIPiprazole [Abilify] 15 mg PO DAILY Enoxaparin [Lovenox] 40 mg SUBCUT DAILY Magnesium Oxide 400 mg PO BID Potassium Chloride [KCl in Water 10 MEQ/100 ML] 10 meq Premix Bag 1 bag IV Q1H Potassium Chloride [Klor-Con M20] 40 meq PO BID amLODIPine [Norvasc] 10 mg PO DAILY lisinopriL [Prinivil] 10 mg PO DAILY 07/21/20 09:59 Consult to Dietary [Consult to Mulling Machine Operator] [CONS] Routine 07/21/20 18:00 cefTRIAXone [Rocephin] 2 gm Sodium Chloride 0.9% [Normal Saline] 100 ml IV Q24H 07/22/20 08:00 ALDOSTERONE [REF] Routine ALDOSTERONE/RENIN RATIO [REF] Routine BASIC METABOLIC PANEL,BMP [CHEM] Routine C-REACTIVE PROTEIN [CHEM] Routine CBC WITH AUTO DIFF [HEME] Routine MAGNESIUM [CHEM] Routine PROCALCITONIN [REF] Routine - Plan Plan:: 07/20/2020 Assessment 44-year-old male with right lower extremity cellulitis. Cellulitis occurred post traumatic event of hitting the right lateral malleolus with subsequent skin breakdown. Right lower extremity cellulitis * Initial trauma occurred 1 month ago at work. * White count significantly elevated at 27,000 with lactic acid of 2.2. * Started on Rocephin in the emergency department * Patient complains of moderate to severe pain. Hypokalemia/hypoalbuminemia Moderate to severe protein calorie malnutrition Ulceration of the lips likely secondary to herpes simplex * Patient states he has not been eating well for the last 10 days since he started developing ulcers on his lower lip. * Potassium of 2.5 * Albumin 2.8 * Patient did eat well in the emergency department when given a turkey sandwich. Chronic medical: Bipolar and hypertension Home medications include Abilify, Norvasc, and lisinopril Plan * Admit to floor * Continue Rocephin * Dietary consult * Replace electrolytes * Await blood cultures * IV fluids, normal saline at 125 mL/h until lactic acid is less than 2 * Continue home medications * VTE prophylaxis with Lovenox * CODE STATUS: Full code 07/21/2020 No significant change overnight which is not unexpected. White count did decrease to 17.6, but this could be explained by fluids alone. We will continue to follow white count. Unfortunately, potassium did not increase much with 80 mEq of potassium. Potassium is now 2.7. This will be replaced with 40 mEq twice daily orally and 40 mEq IV. Recheck in the morning. CRP is 22.7 today and this will be followed also. Procalcitonin yesterday was sent and will send another tomorrow morning. Also, because of the patient's hypertension and hypokalemia I will send tomorrow morning and aldosterone and aldosterone renin level. Blood pressure is adequately controlled at this time. Albumin continues to be significantly low and dietary consult will be performed. IV fluids were stopped with the resolution of his lactic acidosis. Continue on Rocephin and await blood cultures. If no significant improvement in his erythema, pain, or swelling tomorrow we will add vancomycin.
[2020-07-21] MEDS: cefTRIAXone 2 GM in Sodium Chloride 0.9% 100 ML IV SCH (17:17)
[2020-07-22] MEDS: Acetaminophen 325 MG Tab PO PRN ×2 (05:29→17:02)
--- NOTE | 2020-07-22 08:31 | PCM.PN ---
- General Info Date of Service: 07/22/20 Admission Dx/Problem (Free Text): Admission Diagnosis/Problem Admission Diagnosis/Problem Cellulitis Subjective Update: Patient states that he is feeling better, but he is having continued pain in his right lower extremity. It is worse when he stands on it. It is still moderate to severe. No fever or chills. White count has improved as well as C-reactive protein but symptoms have localized. Functional Status: Reports: Pain Controlled - Review of Systems General: Reports: No Symptoms HEENT: Reports: No Symptoms Pulmonary: Reports: No Symptoms Cardiovascular: Reports: No Symptoms Gastrointestinal: Reports: No Symptoms Musculoskeletal: Reports: Leg Pain, Other (Right lower extremity swelling and erythema) - Patient Data Vitals - Most Recent: Last Vital Signs Temp 97.7 F 07/22/20 07:48 Pulse 85 07/22/20 07:48 Resp 14 07/22/20 07:48 BP 158/81 H 07/22/20 07:48 Pulse Ox 96 07/22/20 07:48 Weight - Most Recent: 214 lb 11.2 oz I&O - Last 24 Hours: Intake & Output 07/21/20 07/22/20 07/22/20 22:59 06:59 14:59 Intake Total 2920 1200 Output Total 1400 1700 Balance 1520 -500 Lab Results Last 24 Hours: Laboratory Results - last 24 hr 07/20/20 07/22/20 07/22/20 Range/Units 18:33 05:30 05:30 WBC 13.90 H (4.23-9.07) K/mm3 RBC 3.88 L (4.63-6.08) M/mm3 Hgb 11.3 L (13.7-17.5) gm/dl Hct 34.5 L (40.1-51.0) % MCV 88.9 (79.0-92.2) fl MCH 29.1 (25.7-32.2) pg MCHC 32.8 (32.2-35.5) g/dl RDW Std Deviation 43.0 (35.1-43.9) fL Plt Count 263 (163-337) K/mm3 MPV 10.9 (9.4-12.3) fl Neut % (Auto) 77.8 H (34.0-67.9) % Lymph % (Auto) 12.3 L (21.8-53.1) % [place] % (Auto) 8.1 (5.3-12.2) % Eos % (Auto) 1.4 (0.8-7.0) Baso % (Auto) 0.1 (0.1-1.2) % Neut # (Auto) 10.81 H (1.78-5.38) K/mm3 Lymph # (Auto) 1.71 (1.32-3.57) K/mm3 [place] # (Auto) 1.12 H (0.30-0.82) K/mm3 Eos # (Auto) 0.20 (0.04-0.54) K/mm3 Baso # (Auto) 0.02 (0.01-0.08) K/mm3 Sodium 144 (136-145) mEq/L Potassium 3.2 L (3.5-5.1) mEq/L Chloride 105 (98-107) mEq/L Carbon Dioxide 27 (21-32) mEq/L Anion Gap 15.2 H (5-15) BUN 10 (7-18) mg/dL Creatinine 0.6 L (0.7-1.3) mg/dL Est Cr Clr Drug Dosing 176.04 mL/min Estimated GFR (MDRD) > 60 (>60) mL/min BUN/Creatinine Ratio 16.7 (14-18) Glucose 91 (74-106) mg/dL Calcium 9.0 (8.5-10.1) mg/dL Magnesium 2.0 (1.8-2.4) mg/dl C-Reactive Protein 12.9 H* (<1.0) mg/dL Procalcitonin 0.26 H ng/mL True Results Last 24 Hours: Microbiology 07/20/20 18:38 Aerobic Blood Culture - Preliminary Blood - Venous - Lab Draw NO GROWTH AFTER 1 DAY Anaerobic Blood Culture - Preliminary NO GROWTH AFTER 1 DAY 07/20/20 17:43 Aerobic Blood Culture - Preliminary Blood - Venous NO GROWTH AFTER 1 DAY Anaerobic Blood Culture - Preliminary NO GROWTH AFTER 1 DAY Med Orders - Current: Current Medications Acetaminophen (Acetaminophen 325 Mg Tab) 650 mg PO Q4H PRN PRN Reason: Pain (Mild 1-3)/fever Last Admin: 07/22/20 05:29 Dose: 650 mg Documented by: Amlodipine Besylate (Amlodipine 10 Mg Tab) 10 mg PO DAILY [facility] Last Admin: 07/21/20 09:55 Dose: 10 mg Documented by: Aripiprazole (Aripiprazole 10 Mg Tab) 15 mg PO DAILY [facility] Last Admin: 07/21/20 09:53 Dose: 15 mg Documented by: Enoxaparin Sodium (Enoxaparin 40 Mg/0.4 Ml Syringe) 40 mg SUBCUT DAILY [facility] Last Admin: 07/21/20 09:52 Dose: 40 mg Documented by: Ceftriaxone Sodium 2 gm/ (Sodium Chloride) 100 mls @ 200 mls/hr IV Q24H [facility] Last Admin: 07/21/20 17:17 Dose: 200 mls/hr Documented by: Lisinopril (Lisinopril 10 Mg Tab) 10 mg PO DAILY [facility] Last Admin: 07/21/20 09:55 Dose: 10 mg Documented by: Magnesium Oxide (Magnesium Oxide 400 Mg Tab) 400 mg PO BID [facility] Last Admin: 07/21/20 20:12 Dose: 400 mg Documented by: Ondansetron HCl (Ondansetron 4 Mg Tab.Dis) 4 mg PO Q4H PRN PRN Reason: nausea, able to take PO Oxycodone HCl (Oxycodone 5 Mg Tab) 5 mg PO Q4H PRN PRN Reason: Pain (moderate 4-6) Last Admin: 07/21/20 17:16 Dose: 5 mg Documented by: Sodium Chloride (Sodium Chloride 0.9% 10 Ml Syringe) 10 ml FLUSH ASDIRECTED PRN PRN Reason: Keep Vein Open Last Admin: 07/20/20 19:30 Dose: 10 ml Documented by: Discontinued Medications Amlodipine Besylate (Amlodipine 5 Mg Tab) 10 mg PO DAILY [facility] Ceftriaxone Sodium (Ceftriaxone 2 Gm Advvial) Confirm Administered Dose 2 gm IV .STK-MED ONE Stop: 07/20/20 20:00 Last Admin: 07/20/20 20:09 Dose: Not Given Documented by: Ceftriaxone Sodium 2 gm/ (Sodium Chloride) 100 mls @ 200 mls/hr IV ONETIME ONE Stop: 07/20/20 17:31 Last Admin: 07/20/20 20:07 Dose: 200 mls/hr Documented by: Sodium Chloride (Normal Saline) 1,000 mls @ 125 mls/hr IV ASDIRECTED [facility] Last Admin: 07/20/20 23:38 Dose: 125 mls/hr Documented by: Sodium Chloride (Normal Saline) 1,000 mls @ 1,000 mls/hr IV ONETIME ONE Stop: 07/20/20 19:26 Last Infusion: 07/20/20 20:08 Dose: 125 mls/hr Documented by: Sodium Chloride (Normal Saline) Confirm Administered Dose 100 mls @ as directed .ROUTE .STK-MED ONE Stop: 07/20/20 20:00 Last Admin: 07/20/20 20:09 Dose: Not Given Documented by: Potassium Chloride 10 meq/ (Premix) 100 mls @ 100 mls/hr IV Q1H [facility] Stop: 07/21/20 00:29 Last Admin: 07/21/20 00:41 Dose: 100 mls/hr Documented by: Sodium Chloride (Normal Saline) 1,000 mls @ 125 mls/hr IV ASDIRECTED [facility] Potassium Chloride 10 meq/ (Premix) 100 mls @ 100 mls/hr IV Q1H [facility] Stop: 07/21/20 12:59 Last Admin: 07/21/20 13:33 Dose: 100 mls/hr Documented by: Potassium Chloride (Potassium Chloride 20 Meq Tab.Er) 40 meq PO ONETIME ONE Stop: 07/20/20 18:28 Last Admin: 07/20/20 19:34 Dose: 40 meq Documented by: Potassium Chloride (Potassium Chloride 20 Meq Tab.Er) 40 meq PO BID [facility] Stop: 07/21/20 21:01 Last Admin: 07/21/20 20:12 Dose: 40 meq Documented by: - Exam General: Alert, Oriented HEENT: Pupils Equal, Mucous Membr. Moist/[place] Neck: Supple Lungs: Clear to Auscultation, Normal Respiratory Effort Cardiovascular: Regular Rate, Regular Rhythm GI/Abdominal Exam: Normal Bowel Sounds, Soft, Non-Tender, No Organomegaly, No Distention, No Abnormal Bruit Extremities: Normal Range of Motion, Non-Tender, No Pedal Edema, Normal Capillary Refill, Redness (Right lower extremity), Other (Anterior right lower extremity distal erythema with area of fluctuance) Peripheral Pulses: 2+: Posterior Tibial (L), Posterior Tibial (R), Dorsalis Pedis (L), Dorsalis Pedis (R) Psy/Mental Status: Alert, Normal Affect, Normal Mood - Patient Data Lab Results Last 24 hrs: Laboratory Results - last 24 hr 07/20/20 07/22/20 07/22/20 Range/Units 18:33 05:30 05:30 WBC 13.90 H (4.23-9.07) K/mm3 RBC 3.88 L (4.63-6.08) M/mm3 Hgb 11.3 L (13.7-17.5) gm/dl Hct 34.5 L (40.1-51.0) % MCV 88.9 (79.0-92.2) fl MCH 29.1 (25.7-32.2) pg MCHC 32.8 (32.2-35.5) g/dl RDW Std Deviation 43.0 (35.1-43.9) fL Plt Count 263 (163-337) K/mm3 MPV 10.9 (9.4-12.3) fl Neut % (Auto) 77.8 H (34.0-67.9) % Lymph % (Auto) 12.3 L (21.8-53.1) % [place] % (Auto) 8.1 (5.3-12.2) % Eos % (Auto) 1.4 (0.8-7.0) Baso % (Auto) 0.1 (0.1-1.2) % Neut # (Auto) 10.81 H (1.78-5.38) K/mm3 Lymph # (Auto) 1.71 (1.32-3.57) K/mm3 [place] # (Auto) 1.12 H (0.30-0.82) K/mm3 Eos # (Auto) 0.20 (0.04-0.54) K/mm3 Baso # (Auto) 0.02 (0.01-0.08) K/mm3 Sodium 144 (136-145) mEq/L Potassium 3.2 L (3.5-5.1) mEq/L Chloride 105 (98-107) mEq/L Carbon Dioxide 27 (21-32) mEq/L Anion Gap 15.2 H (5-15) BUN 10 (7-18) mg/dL Creatinine 0.6 L (0.7-1.3) mg/dL Est Cr Clr Drug Dosing 176.04 mL/min Estimated GFR (MDRD) > 60 (>60) mL/min BUN/Creatinine Ratio 16.7 (14-18) Glucose 91 (74-106) mg/dL Calcium 9.0 (8.5-10.1) mg/dL Magnesium 2.0 (1.8-2.4) mg/dl C-Reactive Protein 12.9 H* (<1.0) mg/dL Procalcitonin 0.26 H ng/mL Result Diagrams: 07/22/20 05:30 07/22/20 05:30 True Results Last 24 hrs: Microbiology 07/20/20 18:38 Aerobic Blood Culture - Preliminary Blood - Venous - Lab Draw NO GROWTH AFTER 1 DAY Anaerobic Blood Culture - Preliminary NO GROWTH AFTER 1 DAY 07/20/20 17:43 Aerobic Blood Culture - Preliminary Blood - Venous NO GROWTH AFTER 1 DAY Anaerobic Blood Culture - Preliminary NO GROWTH AFTER 1 DAY Imaging Impressions Last 24 hrs: Ultrasound right lower extremity showed findings suspicious for abscess measuring 14 x 4.4 x 2 cm Sepsis Event Note - Evaluation Sepsis Screening Result: No Definite Risk - Focused Exam Vital Signs: Vital Signs Temp Pulse Resp BP Pulse Ox 07/22/20 07:48 97.7 F 85 14 158/81 H 96 07/22/20 05:33 98.1 F 89 18 140/83 97 - Problem List & Annotations (1) Hypokalemia SNOMED Code(s): 02478324 Code(s): E87.6 - HYPOKALEMIA Status: Acute Current Visit: Yes (2) Hypoalbuminemia SNOMED Code(s): 932300715 Code(s): E88.09 - OTH DISORDERS OF PLASMA-PROTEIN METABOLISM, NEC Status: Acute Current Visit: Yes (3) Cellulitis of right leg SNOMED Code(s): 240553813 Code(s): L03.115 - CELLULITIS OF RIGHT LOWER LIMB Status: Acute Current Visit: Yes (4) Inguinal lymphadenopathy SNOMED Code(s): 370841865 Code(s): R59.0 - LOCALIZED ENLARGED LYMPH NODES Status: Acute Current Visit: Yes - Problem List Review Problem List Initiated/Reviewed/Updated: Yes - My Orders Last 24 Hours: My Active Orders 07/21/20 09:00 ARIPiprazole [Abilify] 15 mg PO DAILY Enoxaparin [Lovenox] 40 mg SUBCUT DAILY Magnesium Oxide 400 mg PO BID amLODIPine [Norvasc] 10 mg PO DAILY lisinopriL [Prinivil] 10 mg PO DAILY 07/21/20 09:59 Consult to Dietary [Consult to History Tutor] [CONS] Routine 07/21/20 18:00 cefTRIAXone [Rocephin] 2 gm Sodium Chloride 0.9% [Normal Saline] 100 ml IV Q24H 07/22/20 05:30 ALDOSTERONE [REF] Routine ALDOSTERONE/RENIN RATIO [REF] Routine PROCALCITONIN [REF] Routine - Plan Plan:: 07/20/2020 Assessment 44-year-old male with right lower extremity cellulitis. Cellulitis occurred post traumatic event of hitting the right lateral malleolus with subsequent skin breakdown. Right lower extremity cellulitis * Initial trauma occurred 1 month ago at work. * White count significantly elevated at 27,000 with lactic acid of 2.2. * Started on Rocephin in the emergency department * Patient complains of moderate to severe pain. Hypokalemia/hypoalbuminemia Moderate to severe protein calorie malnutrition Ulceration of the lips likely secondary to herpes simplex * Patient states he has not been eating well for the last 10 days since he started developing ulcers on his lower lip. * Potassium of 2.5 * Albumin 2.8 * Patient did eat well in the emergency department when given a turkey sandwich. Chronic medical: Bipolar and hypertension Home medications include Abilify, Norvasc, and lisinopril Plan * Admit to floor * Continue Rocephin * Dietary consult * Replace electrolytes * Await blood cultures * IV fluids, normal saline at 125 mL/h until lactic acid is less than 2 * Continue home medications * VTE prophylaxis with Lovenox * CODE STATUS: Full code 07/21/2020 No significant change overnight which is not unexpected. White count did decrease to 17.6, but this could be explained by fluids alone. We will continue to follow white count. Unfortunately, potassium did not increase much with 80 mEq of potassium. Potassium is now 2.7. This will be replaced with 40 mEq twice daily orally and 40 mEq IV. Recheck in the morning. CRP is 22.7 today and this will be followed also. Procalcitonin yesterday was sent and will send another tomorrow morning. Also, because of the patient's hypertension and hypokalemia I will send tomorrow morning and aldosterone and aldosterone renin level. Blood pressure is adequately controlled at this time. Albumin continues to be significantly low and dietary consult will be performed. IV fluids were stopped with the resolution of his lactic acidosis. Continue on Rocephin and await blood cultures. If no significant improvement in his erythema, pain, or swelling tomorrow we will add vancomycin. 07/22/2020 Patient is continuing to improve. White count is down to 14,000 and C-reactive protein is down to 13. He is afebrile but he has had localization of the infection into the anterior manning. Ultrasound is suspicious for abscess. Dr. Banks in surgery will be consulted. Also, patient continues to have hypokalemia with potassium of 3.2. They will again be replaced and we will repeat labs tomorrow. Magnesium is normal at 2.0. Procalcitonin was only 0.26 on admission decreasing the likelihood of severe sepsis. Patient will continue on Rocephin as we await surgical intervention/consult. Discharge will be based on surgical recommendation.
[2020-07-22] MEDS: Magnesium Oxide 400 MG Tab PO SCH ×2 (08:49→20:25)
[2020-07-22] MEDS: Lisinopril 10 MG Tab PO SCH (08:49)
[2020-07-22] MEDS: ARIPiprazole 10 MG Tab PO SCH (08:49)
[2020-07-22] MEDS: amLODIPine 10 MG Tab PO SCH (08:49)
[2020-07-22] MEDS: oxyCODONE 5 MG Tab PO PRN ×2 (08:50→20:25)
[2020-07-22] MEDS: Enoxaparin 40 MG/0.4 ML Syringe SUBCUT SCH (08:50)
--- NOTE | 2020-07-22 10:30 | US ---
Lower extremity ultrasound: Multiple real-time images were obtained superficially within the anterior calf to the ankle on the right side. Findings: Hypoechoic area is seen within the superficial soft tissues measuring 14.0 x 4.4 x 2.0 cm. This is suspicious for abscess. Impression: 1. Findings suspicious for abscess as noted above. Diagnostic code #3
[2020-07-22] MEDS ORDERED: Lisinopril 10 MG Tab PO ONE (12:30)
[2020-07-22] MEDS ORDERED: Potassium Chloride 20 MEQ Tab.ER PO ONE (12:30)
--- NOTE | 2020-07-22 17:03 | PCM.CONS ---
H&P History of Present Illness - General Date of Service: 07/22/20 Admit Problem/Dx: Admission Diagnosis/Problem Admission Diagnosis/Problem Cellulitis Source of Information: Patient History Limitations: Reports: No Limitations - History of Present Illness Initial Comments - Free Text/Narative: patient developed right lower leg tenderness on Tuesday 07/18. This worsened and b ecame more swollen and red. By Sunday, he had so much pain, he came to the ED. he had some chills. In the ED WBC was 27, CRp 22. he was admitted. US of the area showed soft tissues fluid collection concerning for an abscess. Patient tells me that he did not have any trauma to the anterior right leg before the abscess. He had small wound on the right ankle but this area is healing well and is non-tender. he has history of superficial abscesses in the past. he has used IV drugs in the past but nothing recently. Onset of Symptoms: Reports: Gradual Duration of Symptoms: Reports: Day(s): (4), Improving (now on antibiotics) Location: Reports: Lower Extremity, Right Quality: Reports: Ache, Sharp Severity: Moderate Improves with: Reports: Immobilization Worsens with: Reports: Movement Right Lower Leg Pain Score (Numeric/FACES): 7 - Related Data Allergies/Adverse Reactions: Allergies Allergy/AdvReac Type Severity Reaction Status Date / Time codeine AdvReac Vomiting Verified 07/21/20 13:06 Home Medications: Home Meds ARIPiprazole [Abilify] 15 mg PO DAILY 07/20/20 [History] amLODIPine [Norvasc] 10 mg PO DAILY 07/20/20 [History] lisinopriL [Lisinopril] 10 mg PO DAILY 07/20/20 [History] Past Medical History Cardiovascular History: Reports: Hypertension Other Cardiovascular History: QT syndrome. "Heart murmur/palpitations". Respiratory History: Reports: Asthma Other Respiratory History: sports induced as a child Gastrointestinal History: Reports: GERD Neurological History: Reports: Migraines, Other (See Below) Other Neuro History: Brain "hemmorhage." Psychiatric History: Reports: Bipolar Hematologic History: Reports: B12 Deficiency Dermatologic History: Reports: Cellulitis - Infectious Disease History Infectious Disease History: Reports: Chicken Pox, Hepatitis C - Past Surgical History HEENT Surgical History: Reports: Oral Surgery Cardiovascular Surgical History: Reports: None Respiratory Surgical History: Reports: None GI Surgical History: Reports: None Social & Family History - Family History Family Medical History: No Pertinent Family History - Tobacco Use Tobacco Use Status *Q: Current Every Day Tobacco User Years of Tobacco use: 7 Packs/Tins Daily: 1 - Caffeine Use Caffeine Use: Reports: Coffee, Energy Drinks, Soda, Tea - Recreational Drug Use Recreational Drug Use: No Drug Use in Last 12 Months: No H&P Review of Systems - Review of Systems: Review Of Systems: See Below General: Reports: No Symptoms HEENT: Reports: No Symptoms Pulmonary: Reports: No Symptoms Cardiovascular: Reports: No Symptoms Gastrointestinal: Reports: No Symptoms Genitourinary: Reports: No Symptoms Musculoskeletal: Reports: Leg Pain Skin: Reports: Erythema Exam - Exam Exam: See Below - Vital Signs Vital Signs: Last Vital Signs Temp 98.1 F 07/22/20 11:35 Pulse 89 07/22/20 11:35 Resp 16 07/22/20 11:35 BP 145/85 H 07/22/20 12:20 Pulse Ox 96 07/22/20 11:35 Weight: 97.386 kg - Exam General: Alert, Oriented, Cooperative Lungs: Clear to Auscultation, Normal Respiratory Effort Cardiovascular: Regular Rate, Regular Rhythm, Normal S1, Normal S2 Extremities: Increased Warmth (right anterior lower manning), Redness (right anterior lower manning), Other (right anterior lower manning) Peripheral Pulses: 0: Dorsalis Pedis (L), Dorsalis Pedis (R) Skin: Warm, Dry, Intact - Patient Data Lab Results Last 24 hrs: Laboratory Results - last 24 hr 07/20/20 07/22/20 07/22/20 Range/Units 18:33 05:30 05:30 WBC 13.90 H (4.23-9.07) K/mm3 RBC 3.88 L (4.63-6.08) M/mm3 Hgb 11.3 L (13.7-17.5) gm/dl Hct 34.5 L (40.1-51.0) % MCV 88.9 (79.0-92.2) fl MCH 29.1 (25.7-32.2) pg MCHC 32.8 (32.2-35.5) g/dl RDW Std Deviation 43.0 (35.1-43.9) fL Plt Count 263 (163-337) K/mm3 MPV 10.9 (9.4-12.3) fl Neut % (Auto) 77.8 H (34.0-67.9) % Lymph % (Auto) 12.3 L (21.8-53.1) % [place] % (Auto) 8.1 (5.3-12.2) % Eos % (Auto) 1.4 (0.8-7.0) Baso % (Auto) 0.1 (0.1-1.2) % Neut # (Auto) 10.81 H (1.78-5.38) K/mm3 Lymph # (Auto) 1.71 (1.32-3.57) K/mm3 [place] # (Auto) 1.12 H (0.30-0.82) K/mm3 Eos # (Auto) 0.20 (0.04-0.54) K/mm3 Baso # (Auto) 0.02 (0.01-0.08) K/mm3 Sodium 144 (136-145) mEq/L Potassium 3.2 L (3.5-5.1) mEq/L Chloride 105 (98-107) mEq/L Carbon Dioxide 27 (21-32) mEq/L Anion Gap 15.2 H (5-15) BUN 10 (7-18) mg/dL Creatinine 0.6 L (0.7-1.3) mg/dL Est Cr Clr Drug Dosing 176.04 mL/min Estimated GFR (MDRD) > 60 (>60) mL/min BUN/Creatinine Ratio 16.7 (14-18) Glucose 91 (74-106) mg/dL Calcium 9.0 (8.5-10.1) mg/dL Magnesium 2.0 (1.8-2.4) mg/dl C-Reactive Protein 12.9 H* (<1.0) mg/dL Procalcitonin 0.26 H ng/mL Result Diagrams: 07/22/20 05:30 07/22/20 05:30 True Results Last 24 hrs: Microbiology 07/20/20 18:38 Aerobic Blood Culture - Preliminary Blood - Venous - Lab Draw NO GROWTH AFTER 1 DAY Anaerobic Blood Culture - Preliminary NO GROWTH AFTER 1 DAY 07/20/20 17:43 Aerobic Blood Culture - Preliminary Blood - Venous NO GROWTH AFTER 1 DAY Anaerobic Blood Culture - Preliminary NO GROWTH AFTER 1 DAY Sepsis Event Note - Evaluation Sepsis Screening Result: No Definite Risk - Focused Exam Vital Signs: Vital Signs Temp Pulse Resp BP Pulse Ox 07/22/20 12:20 145/85 H 07/22/20 11:35 98.1 F 89 16 145/85 H 96 07/22/20 08:49 158/81 H 07/22/20 07:48 97.7 F 85 14 158/81 H 96 07/22/20 05:33 98.1 F 89 18 140/83 97 Consult PN Assessment/Plan Problem List Initiated/Reviewed/Updated: No Plan: Patient has right anterior lower manning abscess and cellulitis. He needs I&D of the abscess. I discussed with him about the procedure. We discussed risks including injury to adjacent structures including nerves and/or blood vessels, bleeding, infection, need for additional procedures. We discussed post op care including need for wound packing and antibiotics. Patient verbalized understanding and informed consent was obtained. We will proceed with the procedure tomorrow AM as the patient has not been NPO all day today.
[2020-07-22] MEDS: cefTRIAXone 2 GM in Sodium Chloride 0.9% 100 ML IV SCH (17:33)
--- NOTE | 2020-07-22 18:53 | PCM.PREANE ---
Preanesthetic Assessment - Procedure Proposed Procedure: I and D of right lower leg - Anesthesia/Transfusion/Family Hx Anesthesia History: Prior Anesthesia Without Reaction Family History of Anesthesia Reaction: No Transfusion History: No Prior Transfusion(s) Intubation History: Unknown - Review of Systems General: No Symptoms, Fatigue Pulmonary: No Symptoms (sports induced asthma as a child/Tobacco:smoke 1ppd times 20 years ETOH: rarely Marijuana: one month ago) Cardiovascular: No Symptoms (HTN, QT syndrome), Palpitations (few months ago) Gastrointestinal: No Symptoms (GERD), Decreased Appetite Neurological: No Symptoms (L4-5, L5-S1 ruptured disks: no pain), Headache (migraines), Numbness (bilateral legs sciatica) Other: Reports: None (Bipolar), Sinus Problem (rhinitis), Neck Pain (1999 neck: no surgery), Depression, Anxiety - Physical Assessment NPO Status Date: 07/21/20 NPO Status Time: 23:59 Vital Signs: Last Vital Signs Temp 36.6 C 07/22/20 16:55 Pulse 94 07/22/20 16:55 Resp 18 07/22/20 16:55 BP 145/88 H 07/22/20 16:55 Pulse Ox 98 07/22/20 16:55 Height: 1.83 m Weight: 97.386 kg ASA Class: 2 Mental Status: Alert & Oriented x3 Airway Class: Mallampati = 3 Dentition: Reports: Normal Dentition, Caries Thyro-Mental Finger Breadths: 3 Mouth Opening Finger Breadths: 3 ROM/Head Extension: Full Lungs: Clear to Auscultation, Normal Respiratory Effort Cardiovascular: Regular Rate, Regular Rhythm, No Murmurs - Lab Values: Laboratory Last Values WBC 13.90 K/mm3 (4.23-9.07) H 07/22/20 05:30 RBC 3.88 M/mm3 (4.63-6.08) L 07/22/20 05:30 Hgb 11.3 gm/dl (13.7-17.5) L 07/22/20 05:30 Hct 34.5 % (40.1-51.0) L 07/22/20 05:30 MCV 88.9 fl (79.0-92.2) 07/22/20 05:30 MCH 29.1 pg (25.7-32.2) 07/22/20 05:30 MCHC 32.8 g/dl (32.2-35.5) 07/22/20 05:30 RDW Std Deviation 43.0 fL (35.1-43.9) 07/22/20 05:30 Plt Count 263 K/mm3 (163-337) 07/22/20 05:30 MPV 10.9 fl (9.4-12.3) 07/22/20 05:30 Neut % (Auto) 77.8 % (34.0-67.9) H 07/22/20 05:30 Lymph % (Auto) 12.3 % (21.8-53.1) L 07/22/20 05:30 [place] % (Auto) 8.1 % (5.3-12.2) 07/22/20 05:30 Eos % (Auto) 1.4 (0.8-7.0) 07/22/20 05:30 Baso % (Auto) 0.1 % (0.1-1.2) 07/22/20 05:30 Neut # (Auto) 10.81 K/mm3 (1.78-5.38) H 07/22/20 05:30 Lymph # (Auto) 1.71 K/mm3 (1.32-3.57) 07/22/20 05:30 [place] # (Auto) 1.12 K/mm3 (0.30-0.82) H 07/22/20 05:30 Eos # (Auto) 0.20 K/mm3 (0.04-0.54) 07/22/20 05:30 Baso # (Auto) 0.02 K/mm3 (0.01-0.08) 07/22/20 05:30 Manual Slide Review Abnormal smear 07/21/20 04:53 PT 11.7 SECONDS (9.7-12.0) 07/20/20 17:42 INR 1.10 07/20/20 17:42 APTT 30.6 SECONDS (21.7-31.4) 07/20/20 17:42 Sodium 144 mEq/L (136-145) 07/22/20 05:30 Potassium 3.2 mEq/L (3.5-5.1) L 07/22/20 05:30 Chloride 105 mEq/L (98-107) 07/22/20 05:30 Carbon Dioxide 27 mEq/L (21-32) 07/22/20 05:30 Anion Gap 15.2 (5-15) H 07/22/20 05:30 BUN 10 mg/dL (7-18) 07/22/20 05:30 Creatinine 0.6 mg/dL (0.7-1.3) L 07/22/20 05:30 Est Cr Clr Drug Dosing 176.04 mL/min 07/22/20 05:30 Estimated GFR (MDRD) > 60 mL/min (>60) 07/22/20 05:30 BUN/Creatinine Ratio 16.7 (14-18) 07/22/20 05:30 Glucose 91 mg/dL (74-106) 07/22/20 05:30 Lactic Acid 0.7 mmol/L (0.4-2.0) 07/20/20 23:32 Calcium 9.0 mg/dL (8.5-10.1) 07/22/20 05:30 Magnesium 2.0 mg/dl (1.8-2.4) 07/22/20 05:30 Total Bilirubin 0.5 mg/dL (0.2-1.0) 07/21/20 04:53 AST 19 U/L (15-37) 07/21/20 04:53 ALT 17 U/L (16-63) 07/21/20 04:53 Alkaline Phosphatase 57 U/L (46-116) 07/21/20 04:53 C-Reactive Protein 12.9 mg/dL (<1.0) H* 07/22/20 05:30 Total Protein 7.6 g/dl (6.4-8.2) 07/21/20 04:53 Albumin 2.5 g/dl (3.4-5.0) L 07/21/20 04:53 Globulin 5.1 gm/dL 07/21/20 04:53 Albumin/Globulin Ratio 0.5 (1-2) L 07/21/20 04:53 Procalcitonin 0.26 ng/mL H 07/20/20 18:33 SARS-CoV-2 RNA (SISSY) Negative (NEGATIVE) 07/20/20 19:15 Above labs reviewed and noted and within acceptable ranges to proceed with scheduled procedure. - Imaging/EKG Impressions: EKG: - Allergies Allergies/Adverse Reactions: Allergies Allergy/AdvReac Type Severity Reaction Status Date / Time codeine AdvReac Vomiting Verified 07/21/20 13:06 - Anesthesia Plan Pre-Op Medication Ordered: None - Acknowledgements Anesthesia Type Planned: MAC Pt an Appropriate Candidate for the Planned Anesthesia: Yes Alternatives and Risks of Anesthesia Discussed w Pt/Guardian: Yes Pt/Guardian Understands and Agrees with Anesthesia Plan: Yes PreAnesthesia Questionnaire Cardiovascular History: Reports: Hypertension Other Cardiovascular History: QT syndrome. "Heart murmur/palpitations". Respiratory History: Reports: Asthma Other Respiratory History: sports induced as a child Gastrointestinal History: Reports: GERD Neurological History: Reports: Migraines, Other (See Below) Other Neuro History: Brain "hemmorhage." Psychiatric History: Reports: Bipolar Hematologic History: Reports: B12 Deficiency Dermatologic History: Reports: Cellulitis - Infectious Disease History Infectious Disease History: Reports: Chicken Pox, Hepatitis C - Past Surgical History HEENT Surgical History: Reports: Oral Surgery Cardiovascular Surgical History: Reports: None Respiratory Surgical History: Reports: None GI Surgical History: Reports: None - SUBSTANCE USE Tobacco Use Status *Q: Current Every Day Tobacco User Tobacco Use Within Last Twelve Months: Cigarettes Recreational Drug Use History: No - HOME MEDS Home Medications: Home Meds ARIPiprazole [Abilify] 15 mg PO DAILY 07/20/20 [History] amLODIPine [Norvasc] 10 mg PO DAILY 07/20/20 [History] lisinopriL [Lisinopril] 10 mg PO DAILY 07/20/20 [History] - CURRENT (IN HOUSE) MEDS Current Meds: Current Medications Acetaminophen (Acetaminophen 325 Mg Tab) 650 mg PO Q4H PRN PRN Reason: Pain (Mild 1-3)/fever Last Admin: 07/22/20 17:02 Dose: 650 mg Documented by: Amlodipine Besylate (Amlodipine 10 Mg Tab) 10 mg PO DAILY [facility] Last Admin: 07/22/20 08:49 Dose: 10 mg Documented by: Aripiprazole (Aripiprazole 10 Mg Tab) 15 mg PO DAILY [facility] Last Admin: 07/22/20 08:49 Dose: 15 mg Documented by: Enoxaparin Sodium (Enoxaparin 40 Mg/0.4 Ml Syringe) 40 mg SUBCUT DAILY [facility] Last Admin: 07/22/20 08:50 Dose: 40 mg Documented by: Ceftriaxone Sodium 2 gm/ (Sodium Chloride) 100 mls @ 200 mls/hr IV Q24H [facility] Last Admin: 07/22/20 17:33 Dose: 200 mls/hr Documented by: Lisinopril (Lisinopril 20 Mg Tab) 20 mg PO DAILY [facility] Magnesium Oxide (Magnesium Oxide 400 Mg Tab) 400 mg PO BID [facility] Last Admin: 07/22/20 08:49 Dose: 400 mg Documented by: Ondansetron HCl (Ondansetron 4 Mg Tab.Dis) 4 mg PO Q4H PRN PRN Reason: nausea, able to take PO Oxycodone HCl (Oxycodone 5 Mg Tab) 5 mg PO Q4H PRN PRN Reason: Pain (moderate 4-6) Last Admin: 07/22/20 08:50 Dose: 5 mg Documented by: Sodium Chloride (Sodium Chloride 0.9% 10 Ml Syringe) 10 ml FLUSH ASDIRECTED PRN PRN Reason: Keep Vein Open Last Admin: 07/20/20 19:30 Dose: 10 ml Documented by: Discontinued Medications Amlodipine Besylate (Amlodipine 5 Mg Tab) 10 mg PO DAILY [facility] Ceftriaxone Sodium (Ceftriaxone 2 Gm Advvial) Confirm Administered Dose 2 gm IV .STK-MED ONE Stop: 07/20/20 20:00 Last Admin: 07/20/20 20:09 Dose: Not Given Documented by: Ceftriaxone Sodium 2 gm/ (Sodium Chloride) 100 mls @ 200 mls/hr IV ONETIME ONE Stop: 07/20/20 17:31 Last Admin: 07/20/20 20:07 Dose: 200 mls/hr Documented by: Sodium Chloride (Normal Saline) 1,000 mls @ 125 mls/hr IV ASDIRECTED [facility] Last Admin: 07/20/20 23:38 Dose: 125 mls/hr Documented by: Sodium Chloride (Normal Saline) 1,000 mls @ 1,000 mls/hr IV ONETIME ONE Stop: 07/20/20 19:26 Last Infusion: 07/20/20 20:08 Dose: 125 mls/hr Documented by: Sodium Chloride (Normal Saline) Confirm Administered Dose 100 mls @ as directed .ROUTE .STK-MED ONE Stop: 07/20/20 20:00 Last Admin: 07/20/20 20:09 Dose: Not Given Documented by: Potassium Chloride 10 meq/ (Premix) 100 mls @ 100 mls/hr IV Q1H [facility] Stop: 07/21/20 00:29 Last Admin: 07/21/20 00:41 Dose: 100 mls/hr Documented by: Sodium Chloride (Normal Saline) 1,000 mls @ 125 mls/hr IV ASDIRECTED [facility] Potassium Chloride 10 meq/ (Premix) 100 mls @ 100 mls/hr IV Q1H [facility] Stop: 07/21/20 12:59 Last Admin: 07/21/20 13:33 Dose: 100 mls/hr Documented by: Lisinopril (Lisinopril 10 Mg Tab) 10 mg PO DAILY [facility] Last Admin: 07/22/20 08:49 Dose: 10 mg Documented by: Lisinopril (Lisinopril 10 Mg Tab) 10 mg PO ONETIME ONE Stop: 07/22/20 12:31 Last Admin: 07/22/20 12:20 Dose: 10 mg Documented by: Potassium Chloride (Potassium Chloride 20 Meq Tab.Er) 40 meq PO ONETIME ONE Stop: 07/20/20 18:28 Last Admin: 07/20/20 19:34 Dose: 40 meq Documented by: Potassium Chloride (Potassium Chloride 20 Meq Tab.Er) 40 meq PO BID [facility] Stop: 07/21/20 21:01 Last Admin: 07/21/20 20:12 Dose: 40 meq Documented by: Potassium Chloride (Potassium Chloride 20 Meq Tab.Er) 40 meq PO ONETIME ONE Stop: 07/22/20 12:31 Last Admin: 07/22/20 12:21 Dose: 40 meq Documented by:
[2020-07-23] MEDS: oxyCODONE 5 MG Tab PO PRN ×4 (04:04→21:41)
[2020-07-23] MEDS ORDERED: fentaNYL 100 MCG/2 ML SDV ONE (06:50)
[2020-07-23] MEDS ORDERED: Midazolam 1 MG/ML 2 ML SDV ONE (06:50)
[2020-07-23] MEDS ORDERED: Propofol 200 MG/20 ML SDV ONE ×2 (06:50→07:33)
[2020-07-23] MEDS ORDERED: Lidocaine 1% 4 ML ONE (06:50)
[2020-07-23] MEDS ORDERED: Ketamine 500 mg/10 ML MDV ONE (06:51)
[2020-07-23] MEDS ORDERED: Bupivacaine 0.5%/EPINEPHrine 1:200,000 50 ML MDV ONE (06:56)
--- NOTE | 2020-07-23 08:13 | PCM48HPAN ---
Post Anesthesia Note - EVALUATION WITHIN 48HRS OF ANESTHETIC Vital Signs in Normal Range: Yes Patient Participated in Evaluation: Yes Respiratory Function Stable: Yes Airway Patent: Yes Cardiovascular Function Stable: Yes Hydration Status Stable: Yes Pain Control Satisfactory: Yes Nausea and Vomiting Control Satisfactory: Yes Mental Status Recovered: Yes Vital Signs: Last Vital Signs Temp 97.7 F 07/23/20 08:03 Pulse 89 07/23/20 08:03 Resp 18 07/23/20 03:55 BP 135/85 07/23/20 08:03 Pulse Ox 96 07/23/20 08:03 - COMMENTS/OBSERVATIONS Free Text/Narrative:: Patient awake and talking. Nurse took report. Mom in room. Patient instructed to stay in bed for a few hours due to sedation given earlier. Voices understanding.
--- NOTE | 2020-07-23 08:29 | PCM.PN ---
- General Info Date of Service: 07/23/20 Admission Dx/Problem (Free Text): Admission Diagnosis/Problem Admission Diagnosis/Problem Cellulitis Subjective Update: Jad went down and had an I&D by Dr. Banks today. Cultures were sent. Patient denies any significant discomfort. Functional Status: Reports: Pain Controlled - Review of Systems General: Reports: No Symptoms HEENT: Reports: No Symptoms Cardiovascular: Reports: No Symptoms Gastrointestinal: Reports: No Symptoms Musculoskeletal: Reports: Leg Pain - Patient Data Vitals - Most Recent: Last Vital Signs Temp 97.7 F 07/23/20 08:03 Pulse 89 07/23/20 08:03 Resp 18 07/23/20 03:55 BP 135/85 07/23/20 08:03 Pulse Ox 96 07/23/20 08:03 Weight - Most Recent: 211 lb 12.8 oz I&O - Last 24 Hours: Intake & Output 07/22/20 07/23/20 07/23/20 22:59 06:59 14:59 Intake Total 1050 800 Output Total 1600 1300 Balance -550 -500 Lab Results Last 24 Hours: Laboratory Results - last 24 hr 07/22/20 07/23/20 07/23/20 Range/Units 05:30 05:40 05:46 WBC 12.76 H (4.23-9.07) K/mm3 RBC 3.87 L (4.63-6.08) M/mm3 Hgb 11.3 L (13.7-17.5) gm/dl Hct 34.0 L (40.1-51.0) % MCV 87.9 (79.0-92.2) fl MCH 29.2 (25.7-32.2) pg MCHC 33.2 (32.2-35.5) g/dl RDW Std Deviation 41.6 (35.1-43.9) fL Plt Count 279 (163-337) K/mm3 MPV 10.6 (9.4-12.3) fl Neut % (Auto) 78.9 H (34.0-67.9) % Lymph % (Auto) 11.8 L (21.8-53.1) % [place] % (Auto) 6.8 (5.3-12.2) % Eos % (Auto) 2.2 (0.8-7.0) Baso % (Auto) 0.1 (0.1-1.2) % Neut # (Auto) 10.06 H (1.78-5.38) K/mm3 Lymph # (Auto) 1.51 (1.32-3.57) K/mm3 [place] # (Auto) 0.87 H (0.30-0.82) K/mm3 Eos # (Auto) 0.28 (0.04-0.54) K/mm3 Baso # (Auto) 0.01 (0.01-0.08) K/mm3 Manual Slide Review Normal smear Sodium 143 (136-145) mEq/L Potassium 3.1 L (3.5-5.1) mEq/L Chloride 105 (98-107) mEq/L Carbon Dioxide 27 (21-32) mEq/L Anion Gap 14.1 (5-15) BUN 11 (7-18) mg/dL Creatinine 0.7 (0.7-1.3) mg/dL Est Cr Clr Drug Dosing 150.89 mL/min Estimated GFR (MDRD) > 60 (>60) mL/min BUN/Creatinine Ratio 15.7 (14-18) Glucose 98 (74-106) mg/dL Calcium 9.0 (8.5-10.1) mg/dL Magnesium 2.0 (1.8-2.4) mg/dl Total Bilirubin 0.4 (0.2-1.0) mg/dL AST 16 (15-37) U/L ALT 23 (16-63) U/L Alkaline Phosphatase 54 (46-116) U/L C-Reactive Protein 7.4 H* (<1.0) mg/dL Total Protein 7.9 (6.4-8.2) g/dl Albumin 2.5 L (3.4-5.0) g/dl Globulin 5.4 gm/dL Albumin/Globulin Ratio 0.5 L (1-2) Procalcitonin 0.12 H ng/mL True Results Last 24 Hours: Microbiology 07/20/20 18:38 Aerobic Blood Culture - Preliminary Blood - Venous - Lab Draw NO GROWTH AFTER 2 DAYS Anaerobic Blood Culture - Preliminary NO GROWTH AFTER 2 DAYS 07/20/20 17:43 Aerobic Blood Culture - Preliminary Blood - Venous NO GROWTH AFTER 2 DAYS Anaerobic Blood Culture - Preliminary NO GROWTH AFTER 2 DAYS Med Orders - Current: Current Medications Acetaminophen (Acetaminophen 325 Mg Tab) 650 mg PO Q4H PRN PRN Reason: Pain (Mild 1-3)/fever Last Admin: 07/22/20 17:02 Dose: 650 mg Documented by: Amlodipine Besylate (Amlodipine 10 Mg Tab) 10 mg PO DAILY [facility] Last Admin: 07/22/20 08:49 Dose: 10 mg Documented by: Aripiprazole (Aripiprazole 10 Mg Tab) 15 mg PO DAILY [facility] Last Admin: 07/22/20 08:49 Dose: 15 mg Documented by: Enoxaparin Sodium (Enoxaparin 40 Mg/0.4 Ml Syringe) 40 mg SUBCUT DAILY [facility] Last Admin: 07/22/20 08:50 Dose: 40 mg Documented by: Ceftriaxone Sodium 2 gm/ (Sodium Chloride) 100 mls @ 200 mls/hr IV Q24H [facility] Last Admin: 07/22/20 17:33 Dose: 200 mls/hr Documented by: Lisinopril (Lisinopril 20 Mg Tab) 20 mg PO DAILY [facility] Magnesium Oxide (Magnesium Oxide 400 Mg Tab) 400 mg PO BID [facility] Last Admin: 07/22/20 20:25 Dose: 400 mg Documented by: Ondansetron HCl (Ondansetron 4 Mg Tab.Dis) 4 mg PO Q4H PRN PRN Reason: nausea, able to take PO Oxycodone HCl (Oxycodone 5 Mg Tab) 5 mg PO Q4H PRN PRN Reason: Pain (moderate 4-6) Last Admin: 07/23/20 04:04 Dose: 5 mg Documented by: Sodium Chloride (Sodium Chloride 0.9% 10 Ml Syringe) 10 ml FLUSH ASDIRECTED PRN PRN Reason: Keep Vein Open Last Admin: 07/20/20 19:30 Dose: 10 ml Documented by: Discontinued Medications Amlodipine Besylate (Amlodipine 5 Mg Tab) 10 mg PO DAILY [facility] Bupivacaine HCl/Epinephrine Bitart (Bupivacaine 0.5%/Epinephrine 1:200,000 50 Ml Mdv) Confirm Administered Dose 50 ml .ROUTE .STK-MED ONE Stop: 07/23/20 06:57 Ceftriaxone Sodium (Ceftriaxone 2 Gm Advvial) Confirm Administered Dose 2 gm IV .STK-MED ONE Stop: 07/20/20 20:00 Last Admin: 07/20/20 20:09 Dose: Not Given Documented by: Fentanyl (Fentanyl 100 Mcg/2 Ml Sdv) Confirm Administered Dose 100 mcg .ROUTE .STK-MED ONE Stop: 07/23/20 06:51 Ceftriaxone Sodium 2 gm/ (Sodium Chloride) 100 mls @ 200 mls/hr IV ONETIME ONE Stop: 07/20/20 17:31 Last Admin: 07/20/20 20:07 Dose: 200 mls/hr Documented by: Sodium Chloride (Normal Saline) 1,000 mls @ 125 mls/hr IV ASDIRECTED [facility] Last Admin: 07/20/20 23:38 Dose: 125 mls/hr Documented by: Sodium Chloride (Normal Saline) 1,000 mls @ 1,000 mls/hr IV ONETIME ONE Stop: 07/20/20 19:26 Last Infusion: 07/20/20 20:08 Dose: 125 mls/hr Documented by: Sodium Chloride (Normal Saline) Confirm Administered Dose 100 mls @ as directed .ROUTE .STK-MED ONE Stop: 07/20/20 20:00 Last Admin: 07/20/20 20:09 Dose: Not Given Documented by: Potassium Chloride 10 meq/ (Premix) 100 mls @ 100 mls/hr IV Q1H [facility] Stop: 07/21/20 00:29 Last Admin: 07/21/20 00:41 Dose: 100 mls/hr Documented by: Sodium Chloride (Normal Saline) 1,000 mls @ 125 mls/hr IV ASDIRECTED [facility] Potassium Chloride 10 meq/ (Premix) 100 mls @ 100 mls/hr IV Q1H [facility] Stop: 07/21/20 12:59 Last Admin: 07/21/20 13:33 Dose: 100 mls/hr Documented by: Lidocaine HCl (Xylocaine-Mpf 1%) Confirm Administered Dose 4 mls @ as directed .ROUTE .STK-MED ONE Stop: 07/23/20 06:51 Ketamine HCl (Ketamine 500 Mg/10 Ml Mdv) Confirm Administered Dose 500 mg .ROUTE .STK-MED ONE Stop: 07/23/20 06:52 Lisinopril (Lisinopril 10 Mg Tab) 10 mg PO DAILY [facility] Last Admin: 07/22/20 08:49 Dose: 10 mg Documented by: Lisinopril (Lisinopril 10 Mg Tab) 10 mg PO ONETIME ONE Stop: 07/22/20 12:31 Last Admin: 07/22/20 12:20 Dose: 10 mg Documented by: Midazolam HCl (Midazolam 1 Mg/Ml 2 Ml Sdv) Confirm Administered Dose 2 mg .ROUTE .STK-MED ONE Stop: 07/23/20 06:51 Potassium Chloride (Potassium Chloride 20 Meq Tab.Er) 40 meq PO ONETIME ONE Stop: 07/20/20 18:28 Last Admin: 07/20/20 19:34 Dose: 40 meq Documented by: Potassium Chloride (Potassium Chloride 20 Meq Tab.Er) 40 meq PO BID [facility] Stop: 07/21/20 21:01 Last Admin: 07/21/20 20:12 Dose: 40 meq Documented by: Potassium Chloride (Potassium Chloride 20 Meq Tab.Er) 40 meq PO ONETIME ONE Stop: 07/22/20 12:31 Last Admin: 07/22/20 12:21 Dose: 40 meq Documented by: Propofol (Propofol 200 Mg/20 Ml Sdv) Confirm Administered Dose 200 mg .ROUTE .STK-MED ONE Stop: 07/23/20 06:51 Propofol (Propofol 200 Mg/20 Ml Sdv) Confirm Administered Dose 200 mg .ROUTE .STK-MED ONE Stop: 07/23/20 07:34 - Exam Quality Assessment: No: Supplemental Oxygen General: Alert HEENT: Pupils Equal, Mucous Membr. Moist/[place] Neck: Supple Lungs: Clear to Auscultation, Normal Respiratory Effort Cardiovascular: Regular Rate, Regular Rhythm GI/Abdominal Exam: Normal Bowel Sounds, Soft, Non-Tender, No Organomegaly, No Distention, No Abnormal Bruit, No Mass Back Exam: Normal Inspection, Full Range of Motion Extremities: Other (Right lower extremity covered with Dennis wrap postop) Psy/Mental Status: Alert, Normal Affect, Normal Mood - Patient Data Lab Results Last 24 hrs: Laboratory Results - last 24 hr 07/22/20 07/23/20 07/23/20 Range/Units 05:30 05:40 05:46 WBC 12.76 H (4.23-9.07) K/mm3 RBC 3.87 L (4.63-6.08) M/mm3 Hgb 11.3 L (13.7-17.5) gm/dl Hct 34.0 L (40.1-51.0) % MCV 87.9 (79.0-92.2) fl MCH 29.2 (25.7-32.2) pg MCHC 33.2 (32.2-35.5) g/dl RDW Std Deviation 41.6 (35.1-43.9) fL Plt Count 279 (163-337) K/mm3 MPV 10.6 (9.4-12.3) fl Neut % (Auto) 78.9 H (34.0-67.9) % Lymph % (Auto) 11.8 L (21.8-53.1) % [place] % (Auto) 6.8 (5.3-12.2) % Eos % (Auto) 2.2 (0.8-7.0) Baso % (Auto) 0.1 (0.1-1.2) % Neut # (Auto) 10.06 H (1.78-5.38) K/mm3 Lymph # (Auto) 1.51 (1.32-3.57) K/mm3 [place] # (Auto) 0.87 H (0.30-0.82) K/mm3 Eos # (Auto) 0.28 (0.04-0.54) K/mm3 Baso # (Auto) 0.01 (0.01-0.08) K/mm3 Manual Slide Review Normal smear Sodium 143 (136-145) mEq/L Potassium 3.1 L (3.5-5.1) mEq/L Chloride 105 (98-107) mEq/L Carbon Dioxide 27 (21-32) mEq/L Anion Gap 14.1 (5-15) BUN 11 (7-18) mg/dL Creatinine 0.7 (0.7-1.3) mg/dL Est Cr Clr Drug Dosing 150.89 mL/min Estimated GFR (MDRD) > 60 (>60) mL/min BUN/Creatinine Ratio 15.7 (14-18) Glucose 98 (74-106) mg/dL Calcium 9.0 (8.5-10.1) mg/dL Magnesium 2.0 (1.8-2.4) mg/dl Total Bilirubin 0.4 (0.2-1.0) mg/dL AST 16 (15-37) U/L ALT 23 (16-63) U/L Alkaline Phosphatase 54 (46-116) U/L C-Reactive Protein 7.4 H* (<1.0) mg/dL Total Protein 7.9 (6.4-8.2) g/dl Albumin 2.5 L (3.4-5.0) g/dl Globulin 5.4 gm/dL Albumin/Globulin Ratio 0.5 L (1-2) Procalcitonin 0.12 H ng/mL Result Diagrams: 07/23/20 05:40 07/23/20 05:46 True Results Last 24 hrs: Microbiology 07/20/20 18:38 Aerobic Blood Culture - Preliminary Blood - Venous - Lab Draw NO GROWTH AFTER 2 DAYS Anaerobic Blood Culture - Preliminary NO GROWTH AFTER 2 DAYS 07/20/20 17:43 Aerobic Blood Culture - Preliminary Blood - Venous NO GROWTH AFTER 2 DAYS Anaerobic Blood Culture - Preliminary NO GROWTH AFTER 2 DAYS Sepsis Event Note - Evaluation Sepsis Screening Result: Sepsis Risk - Focused Exam Vital Signs: Vital Signs Temp Pulse Resp BP Pulse Ox 07/23/20 08:03 97.7 F 89 135/85 96 07/23/20 03:55 95 18 139/87 97 07/23/20 00:02 98.1 F 84 16 145/83 H 97 - Problem List & Annotations (1) Hypokalemia SNOMED Code(s): 18247956 Code(s): E87.6 - HYPOKALEMIA Status: Acute Current Visit: Yes (2) Hypoalbuminemia SNOMED Code(s): 665125192 Code(s): E88.09 - OTH DISORDERS OF PLASMA-PROTEIN METABOLISM, NEC Status: Acute Current Visit: Yes (3) Cellulitis of right leg SNOMED Code(s): 133364020 Code(s): L03.115 - CELLULITIS OF RIGHT LOWER LIMB Status: Acute Current Visit: Yes (4) Inguinal lymphadenopathy SNOMED Code(s): 350575024 Code(s): R59.0 - LOCALIZED ENLARGED LYMPH NODES Status: Acute Current Visit: Yes - Problem List Review Problem List Initiated/Reviewed/Updated: Yes - My Orders Last 24 Hours: My Active Orders 07/22/20 10:55 Notify Provider Consults [RC] ASDIRECTED Consult to Physician [CONS] Routine 07/23/20 09:00 lisinopriL [Prinivil] 20 mg PO DAILY - Plan Plan:: 07/20/2020 Assessment 44-year-old male with right lower extremity cellulitis. Cellulitis occurred post traumatic event of hitting the right lateral malleolus with subsequent skin breakdown. Right lower extremity cellulitis * Initial trauma occurred 1 month ago at work. * White count significantly elevated at 27,000 with lactic acid of 2.2. * Started on Rocephin in the emergency department * Patient complains of moderate to severe pain. Hypokalemia/hypoalbuminemia Moderate to severe protein calorie malnutrition Ulceration of the lips likely secondary to herpes simplex * Patient states he has not been eating well for the last 10 days since he started developing ulcers on his lower lip. * Potassium of 2.5 * Albumin 2.8 * Patient did eat well in the emergency department when given a turkey sandwich. Chronic medical: Bipolar and hypertension Home medications include Abilify, Norvasc, and lisinopril Plan * Admit to floor * Continue Rocephin * Dietary consult * Replace electrolytes * Await blood cultures * IV fluids, normal saline at 125 mL/h until lactic acid is less than 2 * Continue home medications * VTE prophylaxis with Lovenox * CODE STATUS: Full code 07/21/2020 No significant change overnight which is not unexpected. White count did decrease to 17.6, but this could be explained by fluids alone. We will continue to follow white count. Unfortunately, potassium did not increase much with 80 mEq of potassium. Potassium is now 2.7. This will be replaced with 40 mEq twice daily orally and 40 mEq IV. Recheck in the morning. CRP is 22.7 today and this will be followed also. Procalcitonin yesterday was sent and will send another tomorrow morning. Also, because of the patient's hypertension and hypokalemia I will send tomorrow morning and aldosterone and aldosterone renin level. Blood pressure is adequately controlled at this time. Albumin continues to be significantly low and dietary consult will be performed. IV fluids were stopped with the resolution of his lactic acidosis. Continue on Rocephin and await blood cultures. If no significant improvement in his erythema, pain, or swelling tomorrow we will add vancomycin. 07/22/2020 Patient is continuing to improve. White count is down to 14,000 and C-reactive protein is down to 13. He is afebrile but he has had localization of the infection into the anterior manning. Ultrasound is suspicious for abscess. Dr. Banks in surgery will be consulted. Also, patient continues to have hypokalemia with potassium of 3.2. They will again be replaced and we will repeat labs tomorrow. Magnesium is normal at 2.0. Procalcitonin was only 0.26 on admission decreasing the likelihood of severe sepsis. Patient will continue on Rocephin as we await surgical intervention/consult. Discharge will be based on surgical recommendation. 07/23/2020 Patient is postop I&D of the right lower extremity. White count has dropped to 12,800. We will continue with Rocephin for the next couple of days while we await culture results. He continues to have hypokalemia requiring supplementation. Aldosterone levels sent. Procalcitonin repeat was only 0.12.
[2020-07-23] MEDS: amLODIPine 10 MG Tab PO SCH (09:31)
[2020-07-23] MEDS: Lisinopril 20 MG Tab PO SCH (09:32)
[2020-07-23] MEDS: ARIPiprazole 10 MG Tab PO SCH (09:32)
[2020-07-23] MEDS: Magnesium Oxide 400 MG Tab PO SCH ×2 (09:32→21:41)
[2020-07-23] MEDS: Enoxaparin 40 MG/0.4 ML Syringe SUBCUT SCH (09:33)
[2020-07-23] MEDS: Acetaminophen 325 MG Tab PO PRN ×3 (11:17→21:42)
--- NOTE | 2020-07-23 13:59 | OR ---
DATE OF OPERATION: 07/23/2020 SURGEON: Bhavna Banks MD PREOPERATIVE DIAGNOSIS: Right lower leg abscess and cellulitis. POSTOPERATIVE DIAGNOSIS: Right lower leg abscess and cellulitis. OPERATION PERFORMED: Incision and drainage of right lower leg deep abscess. Wound measured 6 cm long, 3 cm wide and 2 cm deep. ANESTHESIA: Monitored anesthesia care with local anesthetic consisting of 0.5% bupivacaine with 1:100,000 epinephrine. ESTIMATED BLOOD LOSS: 20 mL. FINDINGS: Thick cloudy fluid in the right anterior lower manning in the subfascial plane. INDICATION AND CONSENT: The patient is a 44-year-old male who started having right lower anterior manning pain on 07/18/2020. The pain got worse and also developed cellulitis to the area. The patient presented in the emergency department on Sunday because of the worsening pain and was admitted for cellulitis. At the presentation, his white count was 27 and he was started on IV antibiotics. His pain got better and white count improved to 12 and the ultrasound was placed to the area of the cellulitis and noted a 14 x 4 cm fluid collection overlying the cellulitis. This was concerning for an abscess and I was consulted. I saw the patient, discussed and confirmed the findings, and offered the patient I and D. Due to the size and deep nature of the fluid collection, I offered to proceed under sedation. The patient agreed. We discussed risks, benefits, and alternatives, and informed consent was obtained. DESCRIPTION OF PROCEDURE: The patient was taken to the operating room, placed in supine position, padded appropriately, and monitored anesthesia care was induced, and time-out was performed prior to the start of the procedure. We began the procedure by infiltrating about 40 mL of local anesthetic into the affected area that was most fluctuant. Then, incision was made. Immediately, there was as expression of thick but clear fluid from the pocket. The pocket was in the subfascial plane and the muscle was clearly visible. We made about a 6 cm skin incision and taken it down all the way to the fluid pocket. We drained about 30 mL of fluid collection from this area. Swabs were taken for cultures. Once this was done, a blunt dissection with a finger was used to break all loculations around the pockets that was tracking in all directions. Then, we used dilute Betadine solution to irrigate this area copiously. All the loose fatty tissues and devitalized tissues were removed. We rinsed the area with warm saline, obtained hemostasis with cautery, and packed with iodine- soaked gauze into the area to both for hemostasis and to keep it open for drainage. Then, we examined another scab in the right ankle from prior injury. There was a small amount of pus coming from this area. We injected local anesthetic and opened this area, but there was no more pus that was coming, we stopped there. Next, we proceeded with packing the wound and dressing the wound. The wound as mentioned above was packed with iodine-soaked Kerlix roll. Flaps were placed on top and cotton roll was used to dress the wound followed by an Dennis wrap. This marked the end of the procedure. At the end of the procedure, all instruments, sharps, and sponges were counted and found to be correct x2. The patient was awoken and taken to the room for further recovery. The patient will be allowed to continue IV antibiotics while waiting for cultures. [id number] /[id number] DAVID
[2020-07-23] MEDS: cefTRIAXone 2 GM in Sodium Chloride 0.9% 100 ML IV SCH (17:53)
[2020-07-24] MEDS: oxyCODONE 5 MG Tab PO PRN ×5 (05:10→22:08)
[2020-07-24] MEDS: Acetaminophen 325 MG Tab PO PRN ×5 (05:10→22:08)
[2020-07-24] MEDS: Magnesium Oxide 400 MG Tab PO SCH ×2 (09:06→22:08)
[2020-07-24] MEDS: Lisinopril 20 MG Tab PO SCH (09:06)
[2020-07-24] MEDS: amLODIPine 10 MG Tab PO SCH (09:06)
[2020-07-24] MEDS: ARIPiprazole 10 MG Tab PO SCH (09:07)
[2020-07-24] MEDS: Enoxaparin 40 MG/0.4 ML Syringe SUBCUT SCH (09:08)
[2020-07-24] MEDS ORDERED: hydrALAZINE 10 MG Tab PO PRN (09:18)
--- NOTE | 2020-07-24 11:15 | PCM.PN ---
- General Info Date of Service: 07/24/20 Admission Dx/Problem (Free Text): Admission Diagnosis/Problem Admission Diagnosis/Problem Cellulitis Subjective Update: Feels well. No issues overnight. pain better on the leg Functional Status: Reports: Pain Controlled, Tolerating Diet, Ambulating, Urinating - Review of Systems General: Reports: No Symptoms HEENT: Reports: No Symptoms Pulmonary: Reports: No Symptoms Cardiovascular: Reports: No Symptoms Gastrointestinal: Reports: No Symptoms Genitourinary: Reports: No Symptoms Musculoskeletal: Reports: No Symptoms Skin: Reports: No Symptoms - Patient Data Vitals - Most Recent: Last Vital Signs Temp 97.5 F 07/24/20 08:06 Pulse 85 07/24/20 08:06 Resp 16 07/24/20 05:13 BP 161/86 H 07/24/20 09:06 Pulse Ox 97 07/24/20 08:06 Weight - Most Recent: 97.25 kg I&O - Last 24 Hours: Intake & Output 07/23/20 07/24/20 07/24/20 22:59 06:59 14:59 Intake Total 3060 1600 Output Total 1200 1000 Balance 1860 600 Lab Results Last 24 Hours: Laboratory Results - last 24 hr 07/24/20 07/24/20 Range/Units 07:50 07:50 WBC 11.06 H (4.23-9.07) K/mm3 RBC 3.82 L (4.63-6.08) M/mm3 Hgb 11.3 L (13.7-17.5) gm/dl Hct 33.7 L (40.1-51.0) % MCV 88.2 (79.0-92.2) fl MCH 29.6 (25.7-32.2) pg MCHC 33.5 (32.2-35.5) g/dl RDW Std Deviation 41.6 (35.1-43.9) fL Plt Count 293 (163-337) K/mm3 MPV 10.2 (9.4-12.3) fl Neut % (Auto) 74.2 H (34.0-67.9) % Lymph % (Auto) 14.1 L (21.8-53.1) % [place] % (Auto) 8.8 (5.3-12.2) % Eos % (Auto) 2.3 (0.8-7.0) Baso % (Auto) 0.3 (0.1-1.2) % Neut # (Auto) 8.22 H (1.78-5.38) K/mm3 Lymph # (Auto) 1.56 (1.32-3.57) K/mm3 [place] # (Auto) 0.97 H (0.30-0.82) K/mm3 Eos # (Auto) 0.25 (0.04-0.54) K/mm3 Baso # (Auto) 0.03 (0.01-0.08) K/mm3 Manual Slide Review Abnormal smear Sodium 142 (136-145) mEq/L Potassium 3.7 (3.5-5.1) mEq/L Chloride 104 (98-107) mEq/L Carbon Dioxide 27 (21-32) mEq/L Anion Gap 14.7 (5-15) BUN 9 (7-18) mg/dL Creatinine 0.7 (0.7-1.3) mg/dL Est Cr Clr Drug Dosing 150.89 mL/min Estimated GFR (MDRD) > 60 (>60) mL/min BUN/Creatinine Ratio 12.9 L (14-18) Glucose 88 (74-106) mg/dL Calcium 8.7 (8.5-10.1) mg/dL Magnesium 2.0 (1.8-2.4) mg/dl Total Bilirubin 0.4 (0.2-1.0) mg/dL AST 19 (15-37) U/L ALT 26 (16-63) U/L Alkaline Phosphatase 50 (46-116) U/L C-Reactive Protein 6.7 H* (<1.0) mg/dL Total Protein 8.1 (6.4-8.2) g/dl Albumin 2.5 L (3.4-5.0) g/dl Globulin 5.6 gm/dL Albumin/Globulin Ratio 0.5 L (1-2) True Results Last 24 Hours: Microbiology 07/23/20 07:18 Anaerobic Culture - Preliminary Leg, Right NO GROWTH AFTER 1 DAY 07/20/20 18:38 Aerobic Blood Culture - Preliminary Blood - Venous - Lab Draw NO GROWTH AFTER 3 DAYS Anaerobic Blood Culture - Preliminary NO GROWTH AFTER 3 DAYS 07/20/20 17:43 Aerobic Blood Culture - Preliminary Blood - Venous NO GROWTH AFTER 3 DAYS Anaerobic Blood Culture - Preliminary NO GROWTH AFTER 3 DAYS Med Orders - Current: Current Medications Acetaminophen (Acetaminophen 325 Mg Tab) 650 mg PO Q4H PRN PRN Reason: Pain (Mild 1-3)/fever Last Admin: 07/24/20 09:10 Dose: 650 mg Documented by: Amlodipine Besylate (Amlodipine 10 Mg Tab) 10 mg PO DAILY [facility] Last Admin: 07/24/20 09:06 Dose: 10 mg Documented by: Aripiprazole (Aripiprazole 10 Mg Tab) 15 mg PO DAILY [facility] Last Admin: 07/24/20 09:07 Dose: 15 mg Documented by: Carvedilol (Carvedilol 3.125 Mg Tab) 3.125 mg PO BIDMEALS [facility] Enoxaparin Sodium (Enoxaparin 40 Mg/0.4 Ml Syringe) 40 mg SUBCUT DAILY [facility] Last Admin: 07/24/20 09:08 Dose: 40 mg Documented by: Hydralazine HCl (Hydralazine 10 Mg Tab) 10 mg PO Q4H PRN PRN Reason: Hypertension Ceftriaxone Sodium 2 gm/ (Sodium Chloride) 100 mls @ 200 mls/hr IV Q24H [facility] Last Admin: 07/23/20 17:53 Dose: 200 mls/hr Documented by: Lisinopril (Lisinopril 20 Mg Tab) 20 mg PO DAILY [facility] Last Admin: 07/24/20 09:06 Dose: 20 mg Documented by: Magnesium Oxide (Magnesium Oxide 400 Mg Tab) 400 mg PO BID [facility] Last Admin: 07/24/20 09:06 Dose: 400 mg Documented by: Ondansetron HCl (Ondansetron 4 Mg Tab.Dis) 4 mg PO Q4H PRN PRN Reason: nausea, able to take PO Oxycodone HCl (Oxycodone 5 Mg Tab) 5 mg PO Q4H PRN PRN Reason: Pain (moderate 4-6) Last Admin: 07/24/20 09:08 Dose: 5 mg Documented by: Sodium Chloride (Sodium Chloride 0.9% 10 Ml Syringe) 10 ml FLUSH ASDIRECTED PRN PRN Reason: Keep Vein Open Last Admin: 07/20/20 19:30 Dose: 10 ml Documented by: Discontinued Medications Amlodipine Besylate (Amlodipine 5 Mg Tab) 10 mg PO DAILY [facility] Bupivacaine HCl/Epinephrine Bitart (Bupivacaine 0.5%/Epinephrine 1:200,000 50 Ml Mdv) Confirm Administered Dose 50 ml .ROUTE .[facility] ONE Stop: 07/23/20 06:57 Last Admin: 07/23/20 07:13 Dose: 36 ml Documented by: Ceftriaxone Sodium (Ceftriaxone 2 Gm Advvial) Confirm Administered Dose 2 gm IV .[facility]-MED ONE Stop: 07/20/20 20:00 Last Admin: 07/20/20 20:09 Dose: Not Given Documented by: Fentanyl (Fentanyl 100 Mcg/2 Ml Sdv) Confirm Administered Dose 100 mcg .ROUTE .[facility] ONE Stop: 07/23/20 06:51 Ceftriaxone Sodium 2 gm/ (Sodium Chloride) 100 mls @ 200 mls/hr IV ONETIME ONE Stop: 07/20/20 17:31 Last Admin: 07/20/20 20:07 Dose: 200 mls/hr Documented by: Sodium Chloride (Normal Saline) 1,000 mls @ 125 mls/hr IV ASDIRECTED [facility] Last Admin: 07/20/20 23:38 Dose: 125 mls/hr Documented by: Sodium Chloride (Normal Saline) 1,000 mls @ 1,000 mls/hr IV ONETIME ONE Stop: 07/20/20 19:26 Last Infusion: 07/20/20 20:08 Dose: 125 mls/hr Documented by: Sodium Chloride (Normal Saline) Confirm Administered Dose 100 mls @ as directed .ROUTE .[facility] ONE Stop: 07/20/20 20:00 Last Admin: 07/20/20 20:09 Dose: Not Given Documented by: Potassium Chloride 10 meq/ (Premix) 100 mls @ 100 mls/hr IV Q1H [facility] Stop: 07/21/20 00:29 Last Admin: 07/21/20 00:41 Dose: 100 mls/hr Documented by: Sodium Chloride (Normal Saline) 1,000 mls @ 125 mls/hr IV ASDIRECTED [facility] Potassium Chloride 10 meq/ (Premix) 100 mls @ 100 mls/hr IV Q1H [facility] Stop: 07/21/20 12:59 Last Admin: 07/21/20 13:33 Dose: 100 mls/hr Documented by: Lidocaine HCl (Xylocaine-Mpf 1%) Confirm Administered Dose 4 mls @ as directed . ROUTE .[facility]-MED ONE Stop: 07/23/20 06:51 Ketamine HCl (Ketamine 500 Mg/10 Ml Mdv) Confirm Administered Dose 500 mg .ROUTE .[facility]-MED ONE Stop: 07/23/20 06:52 Lisinopril (Lisinopril 10 Mg Tab) 10 mg PO DAILY [facility] Last Admin: 07/22/20 08:49 Dose: 10 mg Documented by: Lisinopril (Lisinopril 10 Mg Tab) 10 mg PO ONETIME ONE Stop: 07/22/20 12:31 Last Admin: 07/22/20 12:20 Dose: 10 mg Documented by: Midazolam HCl (Midazolam 1 Mg/Ml 2 Ml Sdv) Confirm Administered Dose 2 mg .ROUTE .[facility]-MED ONE Stop: 07/23/20 06:51 Potassium Chloride (Potassium Chloride 20 Meq Tab.Er) 40 meq PO ONETIME ONE Stop: 07/20/20 18:28 Last Admin: 07/20/20 19:34 Dose: 40 meq Documented by: Potassium Chloride (Potassium Chloride 20 Meq Tab.Er) 40 meq PO BID [facility] Stop: 07/21/20 21:01 Last Admin: 07/21/20 20:12 Dose: 40 meq Documented by: Potassium Chloride (Potassium Chloride 20 Meq Tab.Er) 40 meq PO ONETIME ONE Stop: 07/22/20 12:31 Last Admin: 07/22/20 12:21 Dose: 40 meq Documented by: Propofol (Propofol 200 Mg/20 Ml Sdv) Confirm Administered Dose 200 mg .ROUTE .STK-MED ONE Stop: 07/23/20 06:51 Propofol (Propofol 200 Mg/20 Ml Sdv) Confirm Administered Dose 200 mg .ROUTE .STK-MED ONE Stop: 07/23/20 07:34 - Exam General: Alert, Oriented, Cooperative Lungs: Clear to Auscultation, Normal Respiratory Effort Cardiovascular: Regular Rate, Regular Rhythm Wound/Incisions: Drainage (slight clear), Other (wound appears well. Foot is a little edematous from soto wrap but no other issues) - Patient Data Lab Results Last 24 hrs: Laboratory Results - last 24 hr 07/24/20 07/24/20 Range/Units 07:50 07:50 WBC 11.06 H (4.23-9.07) K/mm3 RBC 3.82 L (4.63-6.08) M/mm3 Hgb 11.3 L (13.7-17.5) gm/dl Hct 33.7 L (40.1-51.0) % MCV 88.2 (79.0-92.2) fl MCH 29.6 (25.7-32.2) pg MCHC 33.5 (32.2-35.5) g/dl RDW Std Deviation 41.6 (35.1-43.9) fL Plt Count 293 (163-337) K/mm3 MPV 10.2 (9.4-12.3) fl Neut % (Auto) 74.2 H (34.0-67.9) % Lymph % (Auto) 14.1 L (21.8-53.1) % Gaston % (Auto) 8.8 (5.3-12.2) % Eos % (Auto) 2.3 (0.8-7.0) Baso % (Auto) 0.3 (0.1-1.2) % Neut # (Auto) 8.22 H (1.78-5.38) K/mm3 Lymph # (Auto) 1.56 (1.32-3.57) K/mm3 [place] # (Auto) 0.97 H (0.30-0.82) K/mm3 Eos # (Auto) 0.25 (0.04-0.54) K/mm3 Baso # (Auto) 0.03 (0.01-0.08) K/mm3 Manual Slide Review Abnormal smear Sodium 142 (136-145) mEq/L Potassium 3.7 (3.5-5.1) mEq/L Chloride 104 (98-107) mEq/L Carbon Dioxide 27 (21-32) mEq/L Anion Gap 14.7 (5-15) BUN 9 (7-18) mg/dL Creatinine 0.7 (0.7-1.3) mg/dL Est Cr Clr Drug Dosing 150.89 mL/min Estimated GFR (MDRD) > 60 (>60) mL/min BUN/Creatinine Ratio 12.9 L (14-18) Glucose 88 (74-106) mg/dL Calcium 8.7 (8.5-10.1) mg/dL Magnesium 2.0 (1.8-2.4) mg/dl Total Bilirubin 0.4 (0.2-1.0) mg/dL AST 19 (15-37) U/L ALT 26 (16-63) U/L Alkaline Phosphatase 50 (46-116) U/L C-Reactive Protein 6.7 H* (<1.0) mg/dL Total Protein 8.1 (6.4-8.2) g/dl Albumin 2.5 L (3.4-5.0) g/dl Globulin 5.6 gm/dL Albumin/Globulin Ratio 0.5 L (1-2) Result Diagrams: 07/24/20 07:50 07/24/20 07:50 True Results Last 24 hrs: Microbiology 07/23/20 07:18 Anaerobic Culture - Preliminary Leg, Right NO GROWTH AFTER 1 DAY 07/20/20 18:38 Aerobic Blood Culture - Preliminary Blood - Venous - Lab Draw NO GROWTH AFTER 3 DAYS Anaerobic Blood Culture - Preliminary NO GROWTH AFTER 3 DAYS 07/20/20 17:43 Aerobic Blood Culture - Preliminary Blood - Venous NO GROWTH AFTER 3 DAYS Anaerobic Blood Culture - Preliminary NO GROWTH AFTER 3 DAYS Sepsis Event Note - Evaluation Sepsis Screening Result: No Definite Risk - Focused Exam Vital Signs: Vital Signs Temp Pulse Resp BP Pulse Ox 07/24/20 09:06 161/86 H 07/24/20 08:06 97.5 F 85 161/86 H 97 07/24/20 05:13 97.9 F 94 16 147/88 H 97 07/24/20 02:02 97.9 F 82 16 160/73 H 98 - Problem List Review Problem List Initiated/Reviewed/Updated: No - Assessment Assessment:: POD1 I&D deep right leg wound. - Plan Plan:: Wound appears well. dressing changes. Will continue BID wet to dry dressing flavio michel. Plan on placing a wound VAc prior to discharge likely Sunday
[2020-07-24] MEDS: Carvedilol 3.125 MG Tab PO SCH ×2 (11:20→17:06)
--- NOTE | 2020-07-24 16:16 | PCM.PN ---
- General Info Date of Service: 07/24/20 Admission Dx/Problem (Free Text): Admission Diagnosis/Problem Admission Diagnosis/Problem Cellulitis Subjective Update: 45-year-old male who presents to the emergency department after hitting his right ankle at work approximately 1 month ago. Patient does not have any new complaints. Denies fever, chills, nausea or vomit ing. Patient underwent I&D by Dr. Banks on 07/23. Pain is controlled Blood pressure 161/86, heart rate 85 WBC 11.06, hemoglobin 11.3, potassium 3.7 - Review of Systems General: Reports: No Symptoms HEENT: Reports: No Symptoms Pulmonary: Reports: No Symptoms Cardiovascular: Reports: No Symptoms Gastrointestinal: Reports: No Symptoms Musculoskeletal: Reports: Leg Pain Skin: Reports: No Symptoms Neurological: Reports: No Symptoms Psychiatric: Reports: No Symptoms - Patient Data Vitals - Most Recent: Last Vital Signs Temp 36.7 C 07/24/20 15:33 Pulse 91 07/24/20 15:33 Resp 16 07/24/20 15:33 BP 122/73 07/24/20 15:33 Pulse Ox 96 07/24/20 15:33 Weight - Most Recent: 97.25 kg I&O - Last 24 Hours: Intake & Output 07/24/20 07/24/20 07/24/20 06:59 14:59 22:59 Intake Total 1600 600 Output Total 1000 Balance 600 600 Lab Results Last 24 Hours: Laboratory Results - last 24 hr 07/24/20 07/24/20 Range/Units 07:50 07:50 WBC 11.06 H (4.23-9.07) K/mm3 RBC 3.82 L (4.63-6.08) M/mm3 Hgb 11.3 L (13.7-17.5) gm/dl Hct 33.7 L (40.1-51.0) % MCV 88.2 (79.0-92.2) fl MCH 29.6 (25.7-32.2) pg MCHC 33.5 (32.2-35.5) g/dl RDW Std Deviation 41.6 (35.1-43.9) fL Plt Count 293 (163-337) K/mm3 MPV 10.2 (9.4-12.3) fl Neut % (Auto) 74.2 H (34.0-67.9) % Lymph % (Auto) 14.1 L (21.8-53.1) % [place] % (Auto) 8.8 (5.3-12.2) % Eos % (Auto) 2.3 (0.8-7.0) Baso % (Auto) 0.3 (0.1-1.2) % Neut # (Auto) 8.22 H (1.78-5.38) K/mm3 Lymph # (Auto) 1.56 (1.32-3.57) K/mm3 [place] # (Auto) 0.97 H (0.30-0.82) K/mm3 Eos # (Auto) 0.25 (0.04-0.54) K/mm3 Baso # (Auto) 0.03 (0.01-0.08) K/mm3 Manual Slide Review Abnormal smear Sodium 142 (136-145) mEq/L Potassium 3.7 (3.5-5.1) mEq/L Chloride 104 (98-107) mEq/L Carbon Dioxide 27 (21-32) mEq/L Anion Gap 14.7 (5-15) BUN 9 (7-18) mg/dL Creatinine 0.7 (0.7-1.3) mg/dL Est Cr Clr Drug Dosing 150.89 mL/min Estimated GFR (MDRD) > 60 (>60) mL/min BUN/Creatinine Ratio 12.9 L (14-18) Glucose 88 (74-106) mg/dL Calcium 8.7 (8.5-10.1) mg/dL Magnesium 2.0 (1.8-2.4) mg/dl Total Bilirubin 0.4 (0.2-1.0) mg/dL AST 19 (15-37) U/L ALT 26 (16-63) U/L Alkaline Phosphatase 50 (46-116) U/L C-Reactive Protein 6.7 H* (<1.0) mg/dL Total Protein 8.1 (6.4-8.2) g/dl Albumin 2.5 L (3.4-5.0) g/dl Globulin 5.6 gm/dL Albumin/Globulin Ratio 0.5 L (1-2) True Results Last 24 Hours: Microbiology 07/23/20 07:18 Gram Stain - Final Leg, Right Anaerobic Culture - Preliminary NO GROWTH AFTER 1 DAY 07/20/20 18:38 Aerobic Blood Culture - Preliminary Blood - Venous - Lab Draw NO GROWTH AFTER 3 DAYS Anaerobic Blood Culture - Preliminary NO GROWTH AFTER 3 DAYS 07/20/20 17:43 Aerobic Blood Culture - Preliminary Blood - Venous NO GROWTH AFTER 3 DAYS Anaerobic Blood Culture - Preliminary NO GROWTH AFTER 3 DAYS Med Orders - Current: Current Medications Acetaminophen (Acetaminophen 325 Mg Tab) 650 mg PO Q4H PRN PRN Reason: Pain (Mild 1-3)/fever Last Admin: 07/24/20 14:08 Dose: 650 mg Documented by: Amlodipine Besylate (Amlodipine 10 Mg Tab) 10 mg PO DAILY [facility] Last Admin: 07/24/20 09:06 Dose: 10 mg Documented by: Aripiprazole (Aripiprazole 10 Mg Tab) 15 mg PO DAILY [facility] Last Admin: 07/24/20 09:07 Dose: 15 mg Documented by: Carvedilol (Carvedilol 3.125 Mg Tab) 3.125 mg PO BIDMEALS [facility] Last Admin: 07/24/20 11:20 Dose: 3.125 mg Documented by: Enoxaparin Sodium (Enoxaparin 40 Mg/0.4 Ml Syringe) 40 mg SUBCUT DAILY [facility] Last Admin: 07/24/20 09:08 Dose: 40 mg Documented by: Hydralazine HCl (Hydralazine 10 Mg Tab) 10 mg PO Q4H PRN PRN Reason: Hypertension Ceftriaxone Sodium 2 gm/ (Sodium Chloride) 100 mls @ 200 mls/hr IV Q24H [facility] Last Admin: 07/23/20 17:53 Dose: 200 mls/hr Documented by: Lisinopril (Lisinopril 20 Mg Tab) 20 mg PO DAILY [facility] Last Admin: 07/24/20 09:06 Dose: 20 mg Documented by: Magnesium Oxide (Magnesium Oxide 400 Mg Tab) 400 mg PO BID [facility] Last Admin: 07/24/20 09:06 Dose: 400 mg Documented by: Ondansetron HCl (Ondansetron 4 Mg Tab.Dis) 4 mg PO Q4H PRN PRN Reason: nausea, able to take PO Oxycodone HCl (Oxycodone 5 Mg Tab) 5 mg PO Q4H PRN PRN Reason: Pain (moderate 4-6) Last Admin: 07/24/20 14:08 Dose: 5 mg Documented by: Sodium Chloride (Sodium Chloride 0.9% 10 Ml Syringe) 10 ml FLUSH ASDIRECTED PRN PRN Reason: Keep Vein Open Last Admin: 07/20/20 19:30 Dose: 10 ml Documented by: Discontinued Medications Amlodipine Besylate (Amlodipine 5 Mg Tab) 10 mg PO DAILY [facility] Bupivacaine HCl/Epinephrine Bitart (Bupivacaine 0.5%/Epinephrine 1:200,000 50 Ml Mdv) Confirm Administered Dose 50 ml .ROUTE .STK-MED ONE Stop: 07/23/20 06:57 Last Admin: 07/23/20 07:13 Dose: 36 ml Documented by: Ceftriaxone Sodium (Ceftriaxone 2 Gm Advvial) Confirm Administered Dose 2 gm IV .STK-MED ONE Stop: 07/20/20 20:00 Last Admin: 07/20/20 20:09 Dose: Not Given Documented by: Fentanyl (Fentanyl 100 Mcg/2 Ml Sdv) Confirm Administered Dose 100 mcg .ROUTE .STK-MED ONE Stop: 07/23/20 06:51 Ceftriaxone Sodium 2 gm/ (Sodium Chloride) 100 mls @ 200 mls/hr IV ONETIME ONE Stop: 07/20/20 17:31 Last Admin: 07/20/20 20:07 Dose: 200 mls/hr Documented by: Sodium Chloride (Normal Saline) 1,000 mls @ 125 mls/hr IV ASDIRECTED [facility] Last Admin: 07/20/20 23:38 Dose: 125 mls/hr Documented by: Sodium Chloride (Normal Saline) 1,000 mls @ 1,000 mls/hr IV ONETIME ONE Stop: 07/20/20 19:26 Last Infusion: 07/20/20 20:08 Dose: 125 mls/hr Documented by: Sodium Chloride (Normal Saline) Confirm Administered Dose 100 mls @ as directed .ROUTE .STK-MED ONE Stop: 07/20/20 20:00 Last Admin: 07/20/20 20:09 Dose: Not Given Documented by: Potassium Chloride 10 meq/ (Premix) 100 mls @ 100 mls/hr IV Q1H [facility] Stop: 07/21/20 00:29 Last Admin: 07/21/20 00:41 Dose: 100 mls/hr Documented by: Sodium Chloride (Normal Saline) 1,000 mls @ 125 mls/hr IV ASDIRECTED [facility] Potassium Chloride 10 meq/ (Premix) 100 mls @ 100 mls/hr IV Q1H [facility] Stop: 07/21/20 12:59 Last Admin: 07/21/20 13:33 Dose: 100 mls/hr Documented by: Lidocaine HCl (Xylocaine-Mpf 1%) Confirm Administered Dose 4 mls @ as directed .ROUTE .STK-MED ONE Stop: 07/23/20 06:51 Ketamine HCl (Ketamine 500 Mg/10 Ml Mdv) Confirm Administered Dose 500 mg .ROUTE .STK-MED ONE Stop: 07/23/20 06:52 Lisinopril (Lisinopril 10 Mg Tab) 10 mg PO DAILY [facility] Last Admin: 07/22/20 08:49 Dose: 10 mg Documented by: Lisinopril (Lisinopril 10 Mg Tab) 10 mg PO ONETIME ONE Stop: 07/22/20 12:31 Last Admin: 07/22/20 12:20 Dose: 10 mg Documented by: Midazolam HCl (Midazolam 1 Mg/Ml 2 Ml Sdv) Confirm Administered Dose 2 mg .ROUTE .STK-MED ONE Stop: 07/23/20 06:51 Potassium Chloride (Potassium Chloride 20 Meq Tab.Er) 40 meq PO ONETIME ONE Stop: 07/20/20 18:28 Last Admin: 07/20/20 19:34 Dose: 40 meq Documented by: Potassium Chloride (Potassium Chloride 20 Meq Tab.Er) 40 meq PO BID [facility] Stop: 07/21/20 21:01 Last Admin: 07/21/20 20:12 Dose: 40 meq Documented by: Potassium Chloride (Potassium Chloride 20 Meq Tab.Er) 40 meq PO ONETIME ONE Stop: 07/22/20 12:31 Last Admin: 07/22/20 12:21 Dose: 40 meq Documented by: Propofol (Propofol 200 Mg/20 Ml Sdv) Confirm Administered Dose 200 mg .ROUTE .STK-MED ONE Stop: 07/23/20 06:51 Propofol (Propofol 200 Mg/20 Ml Sdv) Confirm Administered Dose 200 mg .ROUTE .STK-MED ONE Stop: 07/23/20 07:34 - Exam General: Alert, Oriented, Cooperative, No Acute Distress HEENT: Pupils Equal, Pupils Reactive, EOMI, Mucous Membr. Moist/[place] Neck: Supple, No JVD Lungs: Clear to Auscultation, Normal Respiratory Effort Cardiovascular: Regular Rate, Regular Rhythm, No Murmurs GI/Abdominal Exam: Normal Bowel Sounds, Soft, Non-Tender, No Organomegaly Extremities: Normal Capillary Refill (Other (Right lower extremity covered with Dennis wrap postop)) Skin: Warm, Dry, Intact Neurological: Normal Speech, Normal Tone, Strength Equal Bilateral, Reflexes Equal Bilateral, Sensation Intact Psy/Mental Status: Alert, Normal Affect, Normal Mood - Patient Data Lab Results Last 24 hrs: Laboratory Results - last 24 hr 07/24/20 07/24/20 Range/Units 07:50 07:50 WBC 11.06 H (4.23-9.07) K/mm3 RBC 3.82 L (4.63-6.08) M/mm3 Hgb 11.3 L (13.7-17.5) gm/dl Hct 33.7 L (40.1-51.0) % MCV 88.2 (79.0-92.2) fl MCH 29.6 (25.7-32.2) pg MCHC 33.5 (32.2-35.5) g/dl RDW Std Deviation 41.6 (35.1-43.9) fL Plt Count 293 (163-337) K/mm3 MPV 10.2 (9.4-12.3) fl Neut % (Auto) 74.2 H (34.0-67.9) % Lymph % (Auto) 14.1 L (21.8-53.1) % [place] % (Auto) 8.8 (5.3-12.2) % Eos % (Auto) 2.3 (0.8-7.0) Baso % (Auto) 0.3 (0.1-1.2) % Neut # (Auto) 8.22 H (1.78-5.38) K/mm3 Lymph # (Auto) 1.56 (1.32-3.57) K/mm3 [place] # (Auto) 0.97 H (0.30-0.82) K/mm3 Eos # (Auto) 0.25 (0.04-0.54) K/mm3 Baso # (Auto) 0.03 (0.01-0.08) K/mm3 Manual Slide Review Abnormal smear Sodium 142 (136-145) mEq/L Potassium 3.7 (3.5-5.1) mEq/L Chloride 104 (98-107) mEq/L Carbon Dioxide 27 (21-32) mEq/L Anion Gap 14.7 (5-15) BUN 9 (7-18) mg/dL Creatinine 0.7 (0.7-1.3) mg/dL Est Cr Clr Drug Dosing 150.89 mL/min Estimated GFR (MDRD) > 60 (>60) mL/min BUN/Creatinine Ratio 12.9 L (14-18) Glucose 88 (74-106) mg/dL Calcium 8.7 (8.5-10.1) mg/dL Magnesium 2.0 (1.8-2.4) mg/dl Total Bilirubin 0.4 (0.2-1.0) mg/dL AST 19 (15-37) U/L ALT 26 (16-63) U/L Alkaline Phosphatase 50 (46-116) U/L C-Reactive Protein 6.7 H* (<1.0) mg/dL Total Protein 8.1 (6.4-8.2) g/dl Albumin 2.5 L (3.4-5.0) g/dl Globulin 5.6 gm/dL Albumin/Globulin Ratio 0.5 L (1-2) Result Diagrams: 07/24/20 07:50 07/24/20 07:50 True Results Last 24 hrs: Microbiology 07/23/20 07:18 Gram Stain - Final Leg, Right Anaerobic Culture - Preliminary NO GROWTH AFTER 1 DAY 07/20/20 18:38 Aerobic Blood Culture - Preliminary Blood - Venous - Lab Draw NO GROWTH AFTER 3 DAYS Anaerobic Blood Culture - Preliminary NO GROWTH AFTER 3 DAYS 07/20/20 17:43 Aerobic Blood Culture - Preliminary Blood - Venous NO GROWTH AFTER 3 DAYS Anaerobic Blood Culture - Preliminary NO GROWTH AFTER 3 DAYS Sepsis Event Note - Evaluation Sepsis Screening Result: No Definite Risk - Focused Exam Vital Signs: Vital Signs Temp Pulse Resp BP Pulse Ox 07/24/20 15:33 36.7 C 91 16 122/73 96 07/24/20 11:38 36.6 C 86 14 154/87 H 97 07/24/20 11:20 85 161/86 H 07/24/20 09:06 161/86 H 07/24/20 08:06 36.4 C 85 161/86 H 97 07/24/20 05:13 36.6 C 94 16 147/88 H 97 - Problem List Review Problem List Initiated/Reviewed/Updated: Yes - My Orders Last 24 Hours: My Active Orders 07/24/20 09:18 hydrALAZINE [Apresoline] 10 mg PO Q4H PRN 07/24/20 09:30 carvediloL [Coreg] 3.125 mg PO BIDMEALS - Assessment Assessment:: POD1 I&D deep right leg wound. - Plan Plan:: 07/20/2020 Assessment 44-year-old male with right lower extremity cellulitis. Cellulitis occurred post traumatic event of hitting the right lateral malleolus with subsequent skin breakdown. Right lower extremity cellulitis * Initial trauma occurred 1 month ago at work. * White count significantly elevated at 27,000 with lactic acid of 2.2. * Started on Rocephin in the emergency department * Patient complains of moderate to severe pain. Hypokalemia/hypoalbuminemia Moderate to severe protein calorie malnutrition Ulceration of the lips likely secondary to herpes simplex * Patient states he has not been eating well for the last 10 days since he started developing ulcers on his lower lip. * Potassium of 2.5 * Albumin 2.8 * Patient did eat well in the emergency department when given a turkey sandwich. Chronic medical: Bipolar and hypertension Home medications include Abilify, Norvasc, and lisinopril Plan * Admit to floor * Continue Rocephin * Dietary consult * Replace electrolytes * Await blood cultures * IV fluids, normal saline at 125 mL/h until lactic acid is less than 2 * Continue home medications * VTE prophylaxis with Lovenox * CODE STATUS: Full code 07/21/2020 No significant change overnight which is not unexpected. White count did decrease to 17.6, but this could be explained by fluids alone. We will continue to follow white count. Unfortunately, potassium did not increase much with 80 mEq of potassium. Potassium is now 2.7. This will be replaced with 40 mEq twice daily orally and 40 mEq IV. Recheck in the morning. CRP is 22.7 today and this will be followed also. Procalcitonin yesterday was sent and will send another tomorrow morning. Also, because of the patient's hypertension and hypokalemia I will send tomorrow morning and aldosterone and aldosterone renin level. Blood pressure is adequately controlled at this time. Albumin continues to be significantly low and dietary consult will be performed. IV fluids were stopped with the resolution of his lactic acidosis. Continue on Rocephin and await blood cultures. If no significant improvement in his erythema, pain, or swelling tomorrow we will add vancomycin. 07/22/2020 Patient is continuing to improve. White count is down to 14,000 and C-reactive protein is down to 13. He is afebrile but he has had localization of the infection into the anterior manning. Ultrasound is suspicious for abscess. Dr. Banks in surgery will be consulted. Also, patient continues to have hypokalemia with potassium of 3.2. They will again be replaced and we will repeat labs tomorrow. Magnesium is normal at 2.0. Procalcitonin was only 0.26 on admission decreasing the likelihood of severe sepsis. Patient will continue on Rocephin as we await surgical intervention/consult. Discharge will be based on surgical recommendation. 07/23/2020 Patient is postop I&D of the right lower extremity. White count has dropped to 12,800. We will continue with Rocephin for the next couple of days while we await culture results. He continues to have hypokalemia requiring supplementation. Aldosterone levels sent. Procalcitonin repeat was only 0.12. 07/24/2020 Assessment 44-year-old male with right lower extremity cellulitis. Cellulitis occurred post traumatic event of hitting the right lateral malleolus with subsequent skin breakdown. Right lower extremity cellulitis Hypokalemia/hypoalbuminemia Moderate to severe protein calorie malnutrition Ulceration of the lips likely secondary to herpes simplex Hypertension Plan: * Initial trauma occurred 1 month ago. * Status post I&D by Dr. Banks on 07/23. * Continue ceftriaxone 2 g daily since July 21 * Blood culture no growth so far * Wound culture no growth so far * Chronic medical: Bipolar and hypertension Home medications include Abilify, Norvasc and lisinopril. Data carvedilol 3.125 mg twice daily and hydralazine as needed * Dietary consult * Replace electrolytes * Await blood cultures * Continue amlodipine 10 mg daily, lisinopril 20 mg daily * VTE prophylaxis with Lovenox * CODE STATUS: Full code * Disposition: Needs wound care clinic and may need wound VAC Waiting for culture to decide antibiotics May need long-term antibiotics. PICC line?
[2020-07-24] MEDS: cefTRIAXone 2 GM in Sodium Chloride 0.9% 100 ML IV SCH (17:06)
[2020-07-25] MEDS: oxyCODONE 5 MG Tab PO PRN ×5 (02:34→20:20)
[2020-07-25] MEDS: Acetaminophen 325 MG Tab PO PRN ×5 (02:34→20:20)
[2020-07-25] MEDS: Carvedilol 3.125 MG Tab PO SCH ×2 (06:31→16:00)
[2020-07-25] MEDS: ARIPiprazole 10 MG Tab PO SCH (08:44)
[2020-07-25] MEDS: Magnesium Oxide 400 MG Tab PO SCH ×2 (08:44→20:21)
[2020-07-25] MEDS: amLODIPine 10 MG Tab PO SCH (08:46)
[2020-07-25] MEDS: Lisinopril 20 MG Tab PO SCH (08:47)
[2020-07-25] MEDS: Enoxaparin 40 MG/0.4 ML Syringe SUBCUT SCH (08:48)
[2020-07-25] MEDS: Clindamycin Phosphate in D5W 900 MG in Premix Bag 1 BAG IV SCH ×4 (09:33→16:01)
--- NOTE | 2020-07-25 11:29 | PCM.PN ---
- General Info Date of Service: 07/25/20 Admission Dx/Problem (Free Text): Admission Diagnosis/Problem Admission Diagnosis/Problem Cellulitis Subjective Update: doing fine, pain is controlled, ambulating, wound is stable Functional Status: Reports: Pain Controlled, Tolerating Diet, Ambulating, Urinating - Review of Systems General: Reports: No Symptoms HEENT: Reports: No Symptoms Pulmonary: Reports: No Symptoms Cardiovascular: Reports: No Symptoms Gastrointestinal: Reports: No Symptoms Genitourinary: Reports: No Symptoms Musculoskeletal: Reports: No Symptoms Skin: Reports: Other (right leg wound) - Patient Data Vitals - Most Recent: Last Vital Signs Temp 97.5 F 07/25/20 08:07 Pulse 66 07/25/20 08:07 Resp 16 07/25/20 08:07 BP 136/83 07/25/20 08:47 Pulse Ox 92 L 07/25/20 08:07 Weight - Most Recent: 97.25 kg I&O - Last 24 Hours: Intake & Output 07/24/20 07/25/20 07/25/20 22:59 06:59 14:59 Intake Total 1280 650 Output Total 1350 1200 Balance -70 -550 Lab Results Last 24 Hours: Laboratory Results - last 24 hr 07/25/20 07/25/20 Range/Units 08:44 08:44 WBC 11.04 H (4.23-9.07) K/mm3 RBC 4.03 L (4.63-6.08) M/mm3 Hgb 11.7 L (13.7-17.5) gm/dl Hct 35.8 L (40.1-51.0) % MCV 88.8 (79.0-92.2) fl MCH 29.0 (25.7-32.2) pg MCHC 32.7 (32.2-35.5) g/dl RDW Std Deviation 42.8 (35.1-43.9) fL Plt Count 365 H (163-337) K/mm3 MPV 10.2 (9.4-12.3) fl Neut % (Auto) 74.0 H (34.0-67.9) % Lymph % (Auto) 15.8 L (21.8-53.1) % Vernon % (Auto) 6.4 (5.3-12.2) % Eos % (Auto) 3.1 (0.8-7.0) Baso % (Auto) 0.4 (0.1-1.2) % Neut # (Auto) 8.18 H (1.78-5.38) K/mm3 Lymph # (Auto) 1.74 (1.32-3.57) K/mm3 Vernon # (Auto) 0.71 (0.30-0.82) K/mm3 Eos # (Auto) 0.34 (0.04-0.54) K/mm3 Baso # (Auto) 0.04 (0.01-0.08) K/mm3 Sodium 142 (136-145) mEq/L Potassium 3.8 (3.5-5.1) mEq/L Chloride 103 (98-107) mEq/L Carbon Dioxide 28 (21-32) mEq/L Anion Gap 14.8 (5-15) BUN 9 (7-18) mg/dL Creatinine 0.8 (0.7-1.3) mg/dL Est Cr Clr Drug Dosing 132.03 mL/min Estimated GFR (MDRD) > 60 (>60) mL/min BUN/Creatinine Ratio 11.3 L (14-18) Glucose 90 (74-106) mg/dL Calcium 8.9 (8.5-10.1) mg/dL Total Bilirubin 0.2 (0.2-1.0) mg/dL AST 17 (15-37) U/L ALT 28 (16-63) U/L Alkaline Phosphatase 53 (46-116) U/L Total Protein 8.7 H (6.4-8.2) g/dl Albumin 2.7 L (3.4-5.0) g/dl Globulin 6.0 gm/dL Albumin/Globulin Ratio 0.5 L (1-2) True Results Last 24 Hours: Microbiology 07/23/20 07:18 Gram Stain - Final Leg, Right Anaerobic Culture - Preliminary NO GROWTH AFTER 2 DAYS 07/20/20 18:38 Aerobic Blood Culture - Preliminary Blood - Venous - Lab Draw NO GROWTH AFTER 4 DAYS Anaerobic Blood Culture - Preliminary NO GROWTH AFTER 4 DAYS 07/20/20 17:43 Aerobic Blood Culture - Preliminary Blood - Venous NO GROWTH AFTER 4 DAYS Anaerobic Blood Culture - Preliminary NO GROWTH AFTER 4 DAYS Med Orders - Current: Current Medications Acetaminophen (Acetaminophen 325 Mg Tab) 650 mg PO Q4H PRN PRN Reason: Pain (Mild 1-3)/fever Last Admin: 07/25/20 11:18 Dose: 650 mg Documented by: Amlodipine Besylate (Amlodipine 10 Mg Tab) 10 mg PO DAILY [facility] Last Admin: 07/25/20 08:46 Dose: 10 mg Documented by: Aripiprazole (Aripiprazole 10 Mg Tab) 15 mg PO DAILY [facility] Last Admin: 07/25/20 08:44 Dose: 15 mg Documented by: Carvedilol (Carvedilol 3.125 Mg Tab) 3.125 mg PO BIDMEALS [facility] Last Admin: 07/25/20 06:31 Dose: 3.125 mg Documented by: Enoxaparin Sodium (Enoxaparin 40 Mg/0.4 Ml Syringe) 40 mg SUBCUT DAILY [facility] Last Admin: 07/25/20 08:48 Dose: 40 mg Documented by: Hydralazine HCl (Hydralazine 10 Mg Tab) 10 mg PO Q4H PRN PRN Reason: Hypertension Ceftriaxone Sodium 2 gm/ (Sodium Chloride) 100 mls @ 200 mls/hr IV Q24H [facility] Last Admin: 07/24/20 17:06 Dose: 200 mls/hr Documented by: Clindamycin Phosphate 900 mg/ (Premix) 50 mls @ 100 mls/hr IV Q8H [facility] Last Admin: 07/25/20 09:33 Dose: 100 mls/hr Documented by: Lisinopril (Lisinopril 20 Mg Tab) 20 mg PO DAILY [facility] Last Admin: 07/25/20 08:47 Dose: 20 mg Documented by: Magnesium Oxide (Magnesium Oxide 400 Mg Tab) 400 mg PO BID [facility] Last Admin: 07/25/20 08:44 Dose: 400 mg Documented by: Ondansetron HCl (Ondansetron 4 Mg Tab.Dis) 4 mg PO Q4H PRN PRN Reason: nausea, able to take PO Oxycodone HCl (Oxycodone 5 Mg Tab) 5 mg PO Q4H PRN PRN Reason: Pain (moderate 4-6) Last Admin: 07/25/20 11:18 Dose: 5 mg Documented by: Sodium Chloride (Sodium Chloride 0.9% 10 Ml Syringe) 10 ml FLUSH ASDIRECTED PRN PRN Reason: Keep Vein Open Last Admin: 07/20/20 19:30 Dose: 10 ml Documented by: Discontinued Medications Amlodipine Besylate (Amlodipine 5 Mg Tab) 10 mg PO DAILY [facility] Bupivacaine HCl/Epinephrine Bitart (Bupivacaine 0.5%/Epinephrine 1:200,000 50 Ml Mdv) Confirm Administered Dose 50 ml .ROUTE .STK-MED ONE Stop: 07/23/20 06:57 Last Admin: 07/23/20 07:13 Dose: 36 ml Documented by: Ceftriaxone Sodium (Ceftriaxone 2 Gm Advvial) Confirm Administered Dose 2 gm IV .STK-[facility] ONE Stop: 07/20/20 20:00 Last Admin: 07/20/20 20:09 Dose: Not Given Documented by: Fentanyl (Fentanyl 100 Mcg/2 Ml Sdv) Confirm Administered Dose 100 mcg .ROUTE .[facility] Stop: 07/23/20 06:51 Ceftriaxone Sodium 2 gm/ (Sodium Chloride) 100 mls @ 200 mls/hr IV ONETIME ONE Stop: 07/20/20 17:31 Last Admin: 07/20/20 20:07 Dose: 200 mls/hr Documented by: Sodium Chloride (Normal Saline) 1,000 mls @ 125 mls/hr IV ASDIRECTED [facility] Last Admin: 07/20/20 23:38 Dose: 125 mls/hr Documented by: Sodium Chloride (Normal Saline) 1,000 mls @ 1,000 mls/hr IV ONETIME ONE Stop: 07/20/20 19:26 Last Infusion: 07/20/20 20:08 Dose: 125 mls/hr Documented by: Sodium Chloride (Normal Saline) Confirm Administered Dose 100 mls @ as directed .ROUTE .ST-[facility] Stop: 07/20/20 20:00 Last Admin: 07/20/20 20:09 Dose: Not Given Documented by: Potassium Chloride 10 meq/ (Premix) 100 mls @ 100 mls/hr IV Q1H [facility] Stop: 07/21/20 00:29 Last Admin: 07/21/20 00:41 Dose: 100 mls/hr Documented by: Sodium Chloride (Normal Saline) 1,000 mls @ 125 mls/hr IV ASDIRECTED [facility] Potassium Chloride 10 meq/ (Premix) 100 mls @ 100 mls/hr IV Q1H [facility] Stop: 07/21/20 12:59 Last Admin: 07/21/20 13:33 Dose: 100 mls/hr Documented by: Lidocaine HCl (Xylocaine-Mpf 1%) Confirm Administered Dose 4 mls @ as directed .ROUTE .STK-MED ONE Stop: 07/23/20 06:51 Ketamine HCl (Ketamine 500 Mg/10 Ml Mdv) Confirm Administered Dose 500 mg .ROUTE .STK-MED ONE Stop: 07/23/20 06:52 Lisinopril (Lisinopril 10 Mg Tab) 10 mg PO DAILY [facility] Last Admin: 07/22/20 08:49 Dose: 10 mg Documented by: Lisinopril (Lisinopril 10 Mg Tab) 10 mg PO ONETIME ONE Stop: 07/22/20 12:31 Last Admin: 07/22/20 12:20 Dose: 10 mg Documented by: Midazolam HCl (Midazolam 1 Mg/Ml 2 Ml Sdv) Confirm Administered Dose 2 mg .ROUTE .STK-MED ONE Stop: 07/23/20 06:51 Potassium Chloride (Potassium Chloride 20 Meq Tab.Er) 40 meq PO ONETIME ONE Stop: 07/20/20 18:28 Last Admin: 07/20/20 19:34 Dose: 40 meq Documented by: Potassium Chloride (Potassium Chloride 20 Meq Tab.Er) 40 meq PO BID [facility] Stop: 07/21/20 21:01 Last Admin: 07/21/20 20:12 Dose: 40 meq Documented by: Potassium Chloride (Potassium Chloride 20 Meq Tab.Er) 40 meq PO ONETIME ONE Stop: 07/22/20 12:31 Last Admin: 07/22/20 12:21 Dose: 40 meq Documented by: Propofol (Propofol 200 Mg/20 Ml Sdv) Confirm Administered Dose 200 mg .ROUTE .STK-MED ONE Stop: 07/23/20 06:51 Propofol (Propofol 200 Mg/20 Ml Sdv) Confirm Administered Dose 200 mg .ROUTE .STK-MED ONE Stop: 07/23/20 07:34 - Exam General: Alert, Oriented, Cooperative Lungs: Clear to Auscultation, Normal Respiratory Effort Cardiovascular: Regular Rate, Regular Rhythm Wound/Incisions: Drainage (clear), Erythema (improving), Other (granulation tissues starting to form) - Patient Data Lab Results Last 24 hrs: Laboratory Results - last 24 hr 07/25/20 07/25/20 Range/Units 08:44 08:44 WBC 11.04 H (4.23-9.07) K/mm3 RBC 4.03 L (4.63-6.08) M/mm3 Hgb 11.7 L (13.7-17.5) gm/dl Hct 35.8 L (40.1-51.0) % MCV 88.8 (79.0-92.2) fl MCH 29.0 (25.7-32.2) pg MCHC 32.7 (32.2-35.5) g/dl RDW Std Deviation 42.8 (35.1-43.9) fL Plt Count 365 H (163-337) K/mm3 MPV 10.2 (9.4-12.3) fl Neut % (Auto) 74.0 H (34.0-67.9) % Lymph % (Auto) 15.8 L (21.8-53.1) % Vernon % (Auto) 6.4 (5.3-12.2) % Eos % (Auto) 3.1 (0.8-7.0) Baso % (Auto) 0.4 (0.1-1.2) % Neut # (Auto) 8.18 H (1.78-5.38) K/mm3 Lymph # (Auto) 1.74 (1.32-3.57) K/mm3 Vernon # (Auto) 0.71 (0.30-0.82) K/mm3 Eos # (Auto) 0.34 (0.04-0.54) K/mm3 Baso # (Auto) 0.04 (0.01-0.08) K/mm3 Sodium 142 (136-145) mEq/L Potassium 3.8 (3.5-5.1) mEq/L Chloride 103 (98-107) mEq/L Carbon Dioxide 28 (21-32) mEq/L Anion Gap 14.8 (5-15) BUN 9 (7-18) mg/dL Creatinine 0.8 (0.7-1.3) mg/dL Est Cr Clr Drug Dosing 132.03 mL/min Estimated GFR (MDRD) > 60 (>60) mL/min BUN/Creatinine Ratio 11.3 L (14-18) Glucose 90 (74-106) mg/dL Calcium 8.9 (8.5-10.1) mg/dL Total Bilirubin 0.2 (0.2-1.0) mg/dL AST 17 (15-37) U/L ALT 28 (16-63) U/L Alkaline Phosphatase 53 (46-116) U/L Total Protein 8.7 H (6.4-8.2) g/dl Albumin 2.7 L (3.4-5.0) g/dl Globulin 6.0 gm/dL Albumin/Globulin Ratio 0.5 L (1-2) Result Diagrams: 07/25/20 08:44 07/25/20 08:44 True Results Last 24 hrs: Microbiology 07/23/20 07:18 Gram Stain - Final Leg, Right Anaerobic Culture - Preliminary NO GROWTH AFTER 2 DAYS 07/20/20 18:38 Aerobic Blood Culture - Preliminary Blood - Venous - Lab Draw NO GROWTH AFTER 4 DAYS Anaerobic Blood Culture - Preliminary NO GROWTH AFTER 4 DAYS 07/20/20 17:43 Aerobic Blood Culture - Preliminary Blood - Venous NO GROWTH AFTER 4 DAYS Anaerobic Blood Culture - Preliminary NO GROWTH AFTER 4 DAYS Sepsis Event Note - Evaluation Sepsis Screening Result: No Definite Risk - Focused Exam Vital Signs: Vital Signs Temp Pulse Resp BP Pulse Ox 07/25/20 08:47 136/83 07/25/20 08:46 136/83 07/25/20 08:07 97.5 F 66 16 136/83 92 L 07/25/20 06:31 97.5 F 82 16 143/86 H 98 07/25/20 02:35 97.3 F 89 16 138/76 96 - Problem List Review Problem List Initiated/Reviewed/Updated: No - My Orders Last 24 Hours: My Active Orders 07/24/20 22:00 Wound Care [RC] Q12H - Assessment Assessment:: POD2 I&D deep right leg wound. - Plan Plan:: - wound appears well. cellulitis is improving. Cultures show no organisms day [address] a wound VAC and discharge the patient. I would recommended PO antibiotics such as Bactrim for 7 days for cellulitis if discharged pending cu ltures and sensitivities. - He should follow up with me in 10-14 days in clinic for wound check.
--- NOTE | 2020-07-25 14:52 | PCM.PN ---
- General Info Date of Service: 07/25/20 Admission Dx/Problem (Free Text): Admission Diagnosis/Problem Admission Diagnosis/Problem Cellulitis Subjective Update: Feels fine. Does not have any new complaints. Pain is controlled. No fever or chills. Vital signs are stable and acceptable While the process went down to 11.04 - Review of Systems Systems Review Comment:: General: Reports: No Symptoms HEENT: Reports: No Symptoms Pulmonary: Reports: No Symptoms Cardiovascular: Reports: No Symptoms Gastrointestinal: Reports: No Symptoms Musculoskeletal: Reports: Leg Pain Skin: Reports: No Symptoms Neurological: Reports: No Symptoms Psychiatric: Reports: No Symptoms - Patient Data Vitals - Most Recent: Last Vital Signs Temp 36.7 C 07/25/20 12:13 Pulse 81 07/25/20 12:13 Resp 14 07/25/20 12:13 BP 136/73 07/25/20 12:13 Pulse Ox 97 07/25/20 12:13 Weight - Most Recent: 97.25 kg I&O - Last 24 Hours: Intake & Output 07/24/20 07/25/20 07/25/20 22:59 06:59 14:59 Intake Total 1280 650 840 Output Total 1350 1200 Balance -70 -550 840 Lab Results Last 24 Hours: Laboratory Results - last 24 hr 07/25/20 07/25/20 Range/Units 08:44 08:44 WBC 11.04 H (4.23-9.07) K/mm3 RBC 4.03 L (4.63-6.08) M/mm3 Hgb 11.7 L (13.7-17.5) gm/dl Hct 35.8 L (40.1-51.0) % MCV 88.8 (79.0-92.2) fl MCH 29.0 (25.7-32.2) pg MCHC 32.7 (32.2-35.5) g/dl RDW Std Deviation 42.8 (35.1-43.9) fL Plt Count 365 H (163-337) K/mm3 MPV 10.2 (9.4-12.3) fl Neut % (Auto) 74.0 H (34.0-67.9) % Lymph % (Auto) 15.8 L (21.8-53.1) % [place] % (Auto) 6.4 (5.3-12.2) % Eos % (Auto) 3.1 (0.8-7.0) Baso % (Auto) 0.4 (0.1-1.2) % Neut # (Auto) 8.18 H (1.78-5.38) K/mm3 Lymph # (Auto) 1.74 (1.32-3.57) K/mm3 [place] # (Auto) 0.71 (0.30-0.82) K/mm3 Eos # (Auto) 0.34 (0.04-0.54) K/mm3 Baso # (Auto) 0.04 (0.01-0.08) K/mm3 Sodium 142 (136-145) mEq/L Potassium 3.8 (3.5-5.1) mEq/L Chloride 103 (98-107) mEq/L Carbon Dioxide 28 (21-32) mEq/L Anion Gap 14.8 (5-15) BUN 9 (7-18) mg/dL Creatinine 0.8 (0.7-1.3) mg/dL Est Cr Clr Drug Dosing 132.03 mL/min Estimated GFR (MDRD) > 60 (>60) mL/min BUN/Creatinine Ratio 11.3 L (14-18) Glucose 90 (74-106) mg/dL Calcium 8.9 (8.5-10.1) mg/dL Total Bilirubin 0.2 (0.2-1.0) mg/dL AST 17 (15-37) U/L ALT 28 (16-63) U/L Alkaline Phosphatase 53 (46-116) U/L Total Protein 8.7 H (6.4-8.2) g/dl Albumin 2.7 L (3.4-5.0) g/dl Globulin 6.0 gm/dL Albumin/Globulin Ratio 0.5 L (1-2) True Results Last 24 Hours: Microbiology 07/23/20 07:18 Gram Stain - Final Leg, Right Anaerobic Culture - Preliminary NO GROWTH AFTER 2 DAYS 07/20/20 18:38 Aerobic Blood Culture - Preliminary Blood - Venous - Lab Draw NO GROWTH AFTER 4 DAYS Anaerobic Blood Culture - Preliminary NO GROWTH AFTER 4 DAYS 07/20/20 17:43 Aerobic Blood Culture - Preliminary Blood - Venous NO GROWTH AFTER 4 DAYS Anaerobic Blood Culture - Preliminary NO GROWTH AFTER 4 DAYS Med Orders - Current: Current Medications Acetaminophen (Acetaminophen 325 Mg Tab) 650 mg PO Q4H PRN PRN Reason: Pain (Mild 1-3)/fever Last Admin: 07/25/20 11:18 Dose: 650 mg Documented by: Amlodipine Besylate (Amlodipine 10 Mg Tab) 10 mg PO DAILY [facility] Last Admin: 07/25/20 08:46 Dose: 10 mg Documented by: Aripiprazole (Aripiprazole 10 Mg Tab) 15 mg PO DAILY [facility] Last Admin: 07/25/20 08:44 Dose: 15 mg Documented by: Carvedilol (Carvedilol 3.125 Mg Tab) 3.125 mg PO BIDMEALS [facility] Last Admin: 07/25/20 06:31 Dose: 3.125 mg Documented by: Enoxaparin Sodium (Enoxaparin 40 Mg/0.4 Ml Syringe) 40 mg SUBCUT DAILY [facility] Last Admin: 07/25/20 08:48 Dose: 40 mg Documented by: Hydralazine HCl (Hydralazine 10 Mg Tab) 10 mg PO Q4H PRN PRN Reason: Hypertension Ceftriaxone Sodium 2 gm/ (Sodium Chloride) 100 mls @ 200 mls/hr IV Q24H [facility] Last Admin: 07/24/20 17:06 Dose: 200 mls/hr Documented by: Clindamycin Phosphate 900 mg/ (Premix) 50 mls @ 100 mls/hr IV Q8H [facility] Last Admin: 07/25/20 09:33 Dose: 100 mls/hr Documented by: Lisinopril (Lisinopril 20 Mg Tab) 20 mg PO DAILY [facility] Last Admin: 07/25/20 08:47 Dose: 20 mg Documented by: Magnesium Oxide (Magnesium Oxide 400 Mg Tab) 400 mg PO BID [facility] Last Admin: 07/25/20 08:44 Dose: 400 mg Documented by: Ondansetron HCl (Ondansetron 4 Mg Tab.Dis) 4 mg PO Q4H PRN PRN Reason: nausea, able to take PO Oxycodone HCl (Oxycodone 5 Mg Tab) 5 mg PO Q4H PRN PRN Reason: Pain (moderate 4-6) Last Admin: 07/25/20 11:18 Dose: 5 mg Documented by: Sodium Chloride (Sodium Chloride 0.9% 10 Ml Syringe) 10 ml FLUSH ASDIRECTED PRN PRN Reason: Keep Vein Open Last Admin: 07/20/20 19:30 Dose: 10 ml Documented by: Discontinued Medications Amlodipine Besylate (Amlodipine 5 Mg Tab) 10 mg PO DAILY [facility] Bupivacaine HCl/Epinephrine Bitart (Bupivacaine 0.5%/Epinephrine 1:200,000 50 Ml Mdv) Confirm Administered Dose 50 ml .ROUTE .STK-MED ONE Stop: 07/23/20 06:57 Last Admin: 07/23/20 07:13 Dose: 36 ml Documented by: Ceftriaxone Sodium (Ceftriaxone 2 Gm Advvial) Confirm Administered Dose 2 gm IV .STK-MED ONE Stop: 07/20/20 20:00 Last Admin: 07/20/20 20:09 Dose: Not Given Documented by: Fentanyl (Fentanyl 100 Mcg/2 Ml Sdv) Confirm Administered Dose 100 mcg .ROUTE .STK-MED ONE Stop: 07/23/20 06:51 Ceftriaxone Sodium 2 gm/ (Sodium Chloride) 100 mls @ 200 mls/hr IV ONETIME ONE Stop: 07/20/20 17:31 Last Admin: 07/20/20 20:07 Dose: 200 mls/hr Documented by: Sodium Chloride (Normal Saline) 1,000 mls @ 125 mls/hr IV ASDIRECTED [facility] Last Admin: 07/20/20 23:38 Dose: 125 mls/hr Documented by: Sodium Chloride (Normal Saline) 1,000 mls @ 1,000 mls/hr IV ONETIME ONE Stop: 07/20/20 19:26 Last Infusion: 07/20/20 20:08 Dose: 125 mls/hr Documented by: Sodium Chloride (Normal Saline) Confirm Administered Dose 100 mls @ as directed .ROUTE .STK-MED ONE Stop: 07/20/20 20:00 Last Admin: 07/20/20 20:09 Dose: Not Given Documented by: Potassium Chloride 10 meq/ (Premix) 100 mls @ 100 mls/hr IV Q1H [facility] Stop: 07/21/20 00:29 Last Admin: 07/21/20 00:41 Dose: 100 mls/hr Documented by: Sodium Chloride (Normal Saline) 1,000 mls @ 125 mls/hr IV ASDIRECTED [facility] Potassium Chloride 10 meq/ (Premix) 100 mls @ 100 mls/hr IV Q1H [facility] Stop: 07/21/20 12:59 Last Admin: 07/21/20 13:33 Dose: 100 mls/hr Documented by: Lidocaine HCl (Xylocaine-Mpf 1%) Confirm Administered Dose 4 mls @ as directed .ROUTE .STK-MED ONE Stop: 07/23/20 06:51 Ketamine HCl (Ketamine 500 Mg/10 Ml Mdv) Confirm Administered Dose 500 mg .ROUTE .STK-MED ONE Stop: 07/23/20 06:52 Lisinopril (Lisinopril 10 Mg Tab) 10 mg PO DAILY [facility] Last Admin: 07/22/20 08:49 Dose: 10 mg Documented by: Lisinopril (Lisinopril 10 Mg Tab) 10 mg PO ONETIME ONE Stop: 07/22/20 12:31 Last Admin: 07/22/20 12:20 Dose: 10 mg Documented by: Midazolam HCl (Midazolam 1 Mg/Ml 2 Ml Sdv) Confirm Administered Dose 2 mg .ROUTE .STK-MED ONE Stop: 07/23/20 06:51 Potassium Chloride (Potassium Chloride 20 Meq Tab.Er) 40 meq PO ONETIME ONE Stop: 07/20/20 18:28 Last Admin: 07/20/20 19:34 Dose: 40 meq Documented by: Potassium Chloride (Potassium Chloride 20 Meq Tab.Er) 40 meq PO BID [facility] Stop: 07/21/20 21:01 Last Admin: 07/21/20 20:12 Dose: 40 meq Documented by: Potassium Chloride (Potassium Chloride 20 Meq Tab.Er) 40 meq PO ONETIME ONE Stop: 07/22/20 12:31 Last Admin: 07/22/20 12:21 Dose: 40 meq Documented by: Propofol (Propofol 200 Mg/20 Ml Sdv) Confirm Administered Dose 200 mg .ROUTE .STK-MED ONE Stop: 07/23/20 06:51 Propofol (Propofol 200 Mg/20 Ml Sdv) Confirm Administered Dose 200 mg .ROUTE .STK-MED ONE Stop: 07/23/20 07:34 - Exam Physical Findings Comments:: General: Alert, Oriented, Cooperative, No Acute Distress HEENT: Pupils Equal, Pupils Reactive, EOMI, Mucous Membr. Moist/[place] Neck: Supple, No JVD Lungs: Clear to Auscultation, Normal Respiratory Effort Cardiovascular: Regular Rate, Regular Rhythm, No Murmurs GI/Abdominal Exam: Normal Bowel Sounds, Soft, Non-Tender, No Organomegaly Extremities: Normal Capillary Refill (Other (Right lower extremity covered with Dennis wrap postop)) Skin: Warm, Dry, Intact Neurological: Normal Speech, Normal Tone, Strength Equal Bilateral, Reflexes Equal Bilateral, Sensation Intact Psy/Mental Status: Alert, Normal Affect, Normal Mood - Patient Data Lab Results Last 24 hrs: Laboratory Results - last 24 hr 07/25/20 07/25/20 Range/Units 08:44 08:44 WBC 11.04 H (4.23-9.07) K/mm3 RBC 4.03 L (4.63-6.08) M/mm3 Hgb 11.7 L (13.7-17.5) gm/dl Hct 35.8 L (40.1-51.0) % MCV 88.8 (79.0-92.2) fl MCH 29.0 (25.7-32.2) pg MCHC 32.7 (32.2-35.5) g/dl RDW Std Deviation 42.8 (35.1-43.9) fL Plt Count 365 H (163-337) K/mm3 MPV 10.2 (9.4-12.3) fl Neut % (Auto) 74.0 H (34.0-67.9) % Lymph % (Auto) 15.8 L (21.8-53.1) % [place] % (Auto) 6.4 (5.3-12.2) % Eos % (Auto) 3.1 (0.8-7.0) Baso % (Auto) 0.4 (0.1-1.2) % Neut # (Auto) 8.18 H (1.78-5.38) K/mm3 Lymph # (Auto) 1.74 (1.32-3.57) K/mm3 [place] # (Auto) 0.71 (0.30-0.82) K/mm3 Eos # (Auto) 0.34 (0.04-0.54) K/mm3 Baso # (Auto) 0.04 (0.01-0.08) K/mm3 Sodium 142 (136-145) mEq/L Potassium 3.8 (3.5-5.1) mEq/L Chloride 103 (98-107) mEq/L Carbon Dioxide 28 (21-32) mEq/L Anion Gap 14.8 (5-15) BUN 9 (7-18) mg/dL Creatinine 0.8 (0.7-1.3) mg/dL Est Cr Clr Drug Dosing 132.03 mL/min Estimated GFR (MDRD) > 60 (>60) mL/min BUN/Creatinine Ratio 11.3 L (14-18) Glucose 90 (74-106) mg/dL Calcium 8.9 (8.5-10.1) mg/dL Total Bilirubin 0.2 (0.2-1.0) mg/dL AST 17 (15-37) U/L ALT 28 (16-63) U/L Alkaline Phosphatase 53 (46-116) U/L Total Protein 8.7 H (6.4-8.2) g/dl Albumin 2.7 L (3.4-5.0) g/dl Globulin 6.0 gm/dL Albumin/Globulin Ratio 0.5 L (1-2) Result Diagrams: 07/25/20 08:44 07/25/20 08:44 True Results Last 24 hrs: Microbiology 07/23/20 07:18 Gram Stain - Final Leg, Right Anaerobic Culture - Preliminary NO GROWTH AFTER 2 DAYS 07/20/20 18:38 Aerobic Blood Culture - Preliminary Blood - Venous - Lab Draw NO GROWTH AFTER 4 DAYS Anaerobic Blood Culture - Preliminary NO GROWTH AFTER 4 DAYS 07/20/20 17:43 Aerobic Blood Culture - Preliminary Blood - Venous NO GROWTH AFTER 4 DAYS Anaerobic Blood Culture - Preliminary NO GROWTH AFTER 4 DAYS Sepsis Event Note - Evaluation Sepsis Screening Result: No Definite Risk - Focused Exam Vital Signs: Vital Signs Temp Pulse Resp BP Pulse Ox 07/25/20 12:13 36.7 C 81 14 136/73 97 07/25/20 08:47 136/83 07/25/20 08:46 136/83 07/25/20 08:07 36.4 C 66 16 136/83 92 L 07/25/20 06:31 36.4 C 82 16 143/86 H 98 - Problem List Review Problem List Initiated/Reviewed/Updated: Yes - My Orders Last 24 Hours: My Active Orders 07/25/20 09:00 Clindamycin Phosphate in D5W [Cleocin in D5W 900 MG/50 ML] 900 mg Premix Bag 1 bag IV Q8H 07/26/20 05:00 CBC WITH AUTO DIFF [HEME] DAILY CMP [COMPREHENSIVE METABOLIC PN,CMP] [CHEM] DAILY 07/27/20 05:00 CBC WITH AUTO DIFF [HEME] DAILY CMP [COMPREHENSIVE METABOLIC PN,CMP] [CHEM] DAILY 07/28/20 05:00 CBC WITH AUTO DIFF [HEME] DAILY CMP [COMPREHENSIVE METABOLIC PN,CMP] [CHEM] DAILY 07/29/20 05:00 CBC WITH AUTO DIFF [HEME] DAILY CMP [COMPREHENSIVE METABOLIC PN,CMP] [CHEM] DAILY 07/30/20 05:00 CBC WITH AUTO DIFF [HEME] DAILY CMP [COMPREHENSIVE METABOLIC PN,CMP] [CHEM] DAILY - Assessment Assessment:: POD2 I&D deep right leg wound. - Plan Plan:: recommended PO antibiotics such as Bactrim for 7 days for cellulitis if disch arged pending cultures and sensitivities. - He should follow up with me in 10-14 days in clinic for wound check. Plan:: 07/20/2020 Assessment 44-year-old male with right lower extremity cellulitis. Cellulitis occurred post traumatic event of hitting the right lateral malleolus with subsequent skin breakdown. Right lower extremity cellulitis * Initial trauma occurred 1 month ago at work. * White count significantly elevated at 27,000 with lactic acid of 2.2. * Started on Rocephin in the emergency department * Patient complains of moderate to severe pain. Hypokalemia/hypoalbuminemia Moderate to severe protein calorie malnutrition Ulceration of the lips likely secondary to herpes simplex * Patient states he has not been eating well for the last 10 days since he started developing ulcers on his lower lip. * Potassium of 2.5 * Albumin 2.8 * Patient did eat well in the emergency department when given a turkey sandwich. Chronic medical: Bipolar and hypertension Home medications include Abilify, Norvasc, and lisinopril Plan * Admit to floor * Continue Rocephin * Dietary consult * Replace electrolytes * Await blood cultures * IV fluids, normal saline at 125 mL/h until lactic acid is less than 2 * Continue home medications * VTE prophylaxis with Lovenox * CODE STATUS: Full code 07/21/2020 No significant change overnight which is not unexpected. White count did decrease to 17.6, but this could be explained by fluids alone. We will continue to follow white count. Unfortunately, potassium did not increase much with 80 mEq of potassium. Potassium is now 2.7. This will be replaced with 40 mEq twice daily orally and 40 mEq IV. Recheck in the morning. CRP is 22.7 today a nd this will be followed also. Procalcitonin yesterday was sent and will send another tomorrow morning. Also, because of the patient's hypertension and hypokalemia I will send tomorrow morning and aldosterone and aldosterone renin level. Blood pressure is adequately controlled at this time. Albumin continues to be significantly low and dietary consult will be performed. IV fluids were stopped with the resolution of his lactic acidosis. Continue on Rocephin and await blood cultures. If no significant improvement in his erythema, pain, or swelling tomorrow we will add vancomycin. 07/22/2020 Patient is continuing to improve. White count is down to 14,000 and C-reactive protein is down to 13. He is afebrile but he has had localization of the infection into the anterior manning. Ultrasound is suspicious for abscess. Dr. Banks in surgery will be consulted. Also, patient continues to have hypokalemia with potassium of 3.2. They will again be replaced and we will repeat labs tomorrow. Magnesium is normal at 2.0. Procalcitonin was only 0.26 on admission decreasing the likelihood of severe sepsis. Patient will continue on Rocephin as we await surgical intervention/consult. Discharge will be based on surgical recommendation. 07/23/2020 Patient is postop I&D of the right lower extremity. White count has dropped to 12,800. We will continue with Rocephin for the next couple of days while we await culture results. He continues to have hypokalemia requiring supplementation. Aldosterone levels sent. Procalcitonin repeat was only 0.12. 07/24/2020 Assessment 44-year-old male with right lower extremity cellulitis. Cellulitis occurred post traumatic event of hitting the right lateral malleolus with subsequent skin breakdown. Right lower extremity cellulitis Hypokalemia/hypoalbuminemia Moderate to severe protein calorie malnutrition Ulceration of the lips likely secondary to herpes simplex Hypertension Plan: * Initial trauma occurred 1 month ago. * Status post I&D by Dr. Banks on 07/23. * Continue ceftriaxone 2 g daily since July 21 * Blood culture no growth so far * Wound culture no growth so far * Chronic medical: Bipolar and hypertension Home medications include Abilify, Norvasc and lisinopril. Data carvedilol 3.125 mg twice daily and hydralazine as needed * Dietary consult * Replace electrolytes * Await blood cultures * Continue amlodipine 10 mg daily, lisinopril 20 mg daily * VTE prophylaxis with Lovenox * CODE STATUS: Full code * Disposition: Needs wound care clinic and may need wound VAC Waiting for culture to decide antibiotics May need long-term antibiotics. PICC line? 07/25/2020 Assessment 44-year-old male with right lower extremity cellulitis. Cellulitis occurred post traumatic event of hitting the right lateral malleolus with subsequent skin breakdown. Right lower extremity cellulitis Hypokalemia/hypoalbuminemia Moderate to severe protein calorie malnutrition Ulceration of the lips likely secondary to herpes simplex Hypertension Plan: * Initial trauma occurred 1 month ago. * Status post I&D by Dr. Banks on 07/23. * Continue ceftriaxone 2 g daily since July 21. Added to clindamycin today * Blood culture no growth so far * Wound culture no growth so far * Chronic medical: Bipolar and hypertension Home medications include Abilify, Norvasc and lisinopril. Data carvedilol 3.125 mg twice daily and hydralazine as needed * Dietary consult * Replace electrolytes * Await blood cultures * Continue amlodipine 10 mg daily, lisinopril 20 mg daily * VTE prophylaxis with Lovenox * CODE STATUS: Full code * Disposition: Needs wound care clinic and wound VAC Waiting for culture to decide antibiotics. As per Dr. Banks, PO antibiotics such as Bactrim for 7 days for cellulitis if discharged pending cultures and sensitivities. follow up with Dr. Banks in 10-14 days in clinic for wound check.
[2020-07-25] MEDS: cefTRIAXone 2 GM in Sodium Chloride 0.9% 100 ML IV SCH (17:00)
[2020-07-26] MEDS: Clindamycin Phosphate in D5W 900 MG in Premix Bag 1 BAG IV SCH ×4 (01:18→08:14)
[2020-07-26] MEDS: Acetaminophen 325 MG Tab PO PRN ×2 (01:18→05:31)
[2020-07-26] MEDS: oxyCODONE 5 MG Tab PO PRN ×2 (01:18→05:32)
[2020-07-26] MEDS: Carvedilol 3.125 MG Tab PO SCH ×2 (05:32→08:17)
[2020-07-26] MEDS: ARIPiprazole 10 MG Tab PO SCH (08:16)
[2020-07-26] MEDS: Magnesium Oxide 400 MG Tab PO SCH (08:16)
[2020-07-26] MEDS: Lisinopril 20 MG Tab PO SCH (08:17)
[2020-07-26] MEDS: amLODIPine 10 MG Tab PO SCH (08:17)
[2020-07-26] MEDS: Enoxaparin 40 MG/0.4 ML Syringe SUBCUT SCH (08:19)
--- NOTE | 2020-07-26 14:33 | PCM.DCSUM1 ---
Discharge Summary - Hospital Course Free Text/Narrative:: 44-year-old male with right lower extremity cellulitis. Cellulitis occurred post traumatic event of hitting the right lateral malleolus with subsequent skin breakdown. 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 Campos on 07/23. * Will discontinue ceftriaxone 2 g daily and clindamycin today. As per Dr. Campos, he will be discharged on oral Bactrim for 7 days. Please check electrolytes and renal function every 3 days and drink more fluid. * Blood culture no growth so far * Wound culture no growth so far * Chronic medical: Bipolar and hypertension Home medications include Abilify, Norvasc and lisinopril. added carvedilol 3.125 mg twice daily for blood pressure control * Dietary consult * Replace electrolytes * Await blood cultures Today patient does not have any complaints. Vital signs are stable and acceptable. Patient can walk without any problems. Dr. campos cleared to discharge this patient today. wound care clinic follow-up has been set up and wound VAC has been placed. As per Dr. Campos, PO Bactrim for 7 days for cellulitis. Patient will be discharged to home to follow with the PCP in 3 days, wound clinic in 3 days and follow up with Dr. Campos in 10-14 days in clinic for wound check. Do not drive until approval from MD. Please repeat electrolytes and renal function every 3 days and to drink more fluid. Call PCP for medical issues. Diagnosis: Stroke: No - Discharge Data Discharge Date: 07/26/20 Discharge Disposition: Home, Self-Care 01 Condition: Good - Referral to Home Health Primary Care Physician: Arya Mccray MD - Patient Summary/Data Consults: Consultations 07/21/20 09:59 Consult to Dietary [Consult to S[employer]itter] [CONS] Routine 07/22/20 10:55 Consult to Physician [CONS] Routine 07/26/20 10:59 Consult to Physical Therapy [PT Evaluation and Treatment] [CONS] Routine Recommended Follow-up Testing/Procedures: follow with the PCP in 3 days, wound clinic in 3 days and follow up with Dr. Campos in 10-14 days in clinic for wound check. Do not drive until approval from . Please repeat electrolytes and renal function every 3 days and to drink more fluid. Call PCP for medical issues. - Patient Instructions Activity: As Tolerated - Discharge Plan *PRESCRIPTION DRUG MONITORING PROGRAM REVIEWED*: Not Applicable *COPY OF PRESCRIPTION DRUG MONITORING REPORT IN PATIENT CHARLES: Not Applicable Prescriptions/Med Rec: Sulfamethoxazole/Trimethoprim [Bactrim 400-80 MG] 1 each PO BID #14 tablet carvediloL [Coreg] 3.125 mg PO BIDMEALS #60 tablet amLODIPine [Norvasc] 10 mg PO DAILY #60 tab Acetaminophen [Tylenol] 650 mg PO Q6H PRN #12 tablet PRN Reason: Pain (Mild 1-3)/fever Home Medications: Home Meds ARIPiprazole [Abilify] 15 mg PO DAILY 07/20/20 [History] lisinopriL [Lisinopril] 10 mg PO DAILY 07/20/20 [History] Acetaminophen [Tylenol] 650 mg PO Q6H PRN #12 tablet 07/26/20 [Rx] Sulfamethoxazole/Trimethoprim [Bactrim 400-80 MG] 1 each PO BID #14 tablet 07/26/20 [Rx] amLODIPine [Norvasc] 10 mg PO DAILY #60 tab 07/26/20 [Rx] carvediloL [Coreg] 3.125 mg PO BIDMEALS #60 tablet 07/26/20 [Rx] Patient Handouts: Sepsis, Diagnosis, Adult, Cellulitis, Adult, [id number], Steps to Quit Smoking Referrals: rehab, vision [Other] (These appt. will be scheduled with Physical therapy department and they will update patient of date and times.) Bhavna Campos MD [Physician] - 08/04/20 2:15 pm (Follow-up appt SundayAugust 04 and then patient is to go to rehab. [facility] for wound care appt. ) wound,clinic in 3 days [Other] Arya Mccray MD [Primary Care Provider] - (in 3 days repeat electrolytes and renal funciton every 3 days.) - Discharge Summary/Plan Comment DC Time >30 min.: Yes - General Info Date of Service: 07/26/20 Admission Dx/Problem (Free Text: Admission Diagnosis/Problem Admission Diagnosis/Problem Cellulitis Subjective Update: Feels fine. Does not have any new complaints. Pain is controlled. No fever or chills. Vital signs are stable and acceptable Blood pressure medication has been adjusted. Blood pressure is better controlled. WBC normalized today - Review of Systems Systems Review Comment: General: Reports: No Symptoms HEENT: Reports: No Symptoms Pulmonary: Reports: No Symptoms Cardiovascular: Reports: No Symptoms Gastrointestinal: Reports: No Symptoms Musculoskeletal: Reports: Leg Pain Skin: Reports: No Symptoms Neurological: Reports: No Symptoms Psychiatric: Reports: No Symptoms - Patient Data Vitals - Most Recent: Last Vital Signs Temp 36.4 C 07/26/20 07:51 Pulse 90 07/26/20 08:17 Resp 16 07/26/20 07:51 BP 138/91 H 07/26/20 08:17 Pulse Ox 98 07/26/20 07:51 Weight - Most Recent: 97.84 kg I&O - Last 24 hours: Intake & Output 07/25/20 07/26/20 07/26/20 22:59 06:59 14:59 Intake Total 2280 500 420 Output Total 700 1600 Balance 1580 -1100 420 Lab Results - Last 24 hrs: Laboratory Results - last 24 hr 07/26/20 07/26/20 Range/Units 05:42 05:42 WBC 8.06 (4.23-9.07) K/mm3 RBC 3.85 L (4.63-6.08) M/mm3 Hgb 11.1 L (13.7-17.5) gm/dl Hct 34.4 L (40.1-51.0) % MCV 89.4 (79.0-92.2) fl MCH 28.8 (25.7-32.2) pg MCHC 32.3 (32.2-35.5) g/dl RDW Std Deviation 43.1 (35.1-43.9) fL Plt Count 352 H (163-337) K/mm3 MPV 10.4 (9.4-12.3) fl Neut % (Auto) 60.0 (34.0-67.9) % Lymph % (Auto) 25.4 (21.8-53.1) % Mathews % (Auto) 8.8 (5.3-12.2) % Eos % (Auto) 5.0 (0.8-7.0) Baso % (Auto) 0.2 (0.1-1.2) % Neut # (Auto) 4.83 (1.78-5.38) K/mm3 Lymph # (Auto) 2.05 (1.32-3.57) K/mm3 Mathews # (Auto) 0.71 (0.30-0.82) K/mm3 Eos # (Auto) 0.40 (0.04-0.54) K/mm3 Baso # (Auto) 0.02 (0.01-0.08) K/mm3 Sodium 145 (136-145) mEq/L Potassium 3.6 (3.5-5.1) mEq/L Chloride 107 (98-107) mEq/L Carbon Dioxide 28 (21-32) mEq/L Anion Gap 13.6 (5-15) BUN 8 (7-18) mg/dL Creatinine 0.9 (0.7-1.3) mg/dL Est Cr Clr Drug Dosing 117.36 mL/min Estimated GFR (MDRD) > 60 (>60) mL/min BUN/Creatinine Ratio 8.9 L (14-18) Glucose 90 (74-106) mg/dL Calcium 8.9 (8.5-10.1) mg/dL Total Bilirubin 0.2 (0.2-1.0) mg/dL AST 14 L (15-37) U/L ALT 23 (16-63) U/L Alkaline Phosphatase 47 (46-116) U/L Total Protein 8.1 (6.4-8.2) g/dl Albumin 2.5 L (3.4-5.0) g/dl Globulin 5.6 gm/dL Albumin/Globulin Ratio 0.5 L (1-2) MARK Results - Last 24 hrs: Microbiology 07/20/20 18:38 Aerobic Blood Culture - Preliminary Blood - Venous - Lab Draw NO GROWTH AFTER 5 DAYS Anaerobic Blood Culture - Preliminary NO GROWTH AFTER 5 DAYS 07/20/20 17:43 Aerobic Blood Culture - Preliminary Blood - Venous NO GROWTH AFTER 5 DAYS Anaerobic Blood Culture - Preliminary NO GROWTH AFTER 5 DAYS Med Orders - Current: Current Medications Acetaminophen (Acetaminophen 325 Mg Tab) 650 mg PO Q4H PRN PRN Reason: Pain (Mild 1-3)/fever Last Admin: 07/26/20 05:31 Dose: 650 mg Documented by: Amlodipine Besylate (Amlodipine 10 Mg Tab) 10 mg PO DAILY [facility] Last Admin: 07/26/20 08:17 Dose: 10 mg Documented by: Aripiprazole (Aripiprazole 10 Mg Tab) 15 mg PO DAILY [facility] Last Admin: 07/26/20 08:16 Dose: 15 mg Documented by: Carvedilol (Carvedilol 3.125 Mg Tab) 3.125 mg PO BIDMEALS [facility] Last Admin: 07/26/20 08:17 Dose: 3.125 mg Documented by: Enoxaparin Sodium (Enoxaparin 40 Mg/0.4 Ml Syringe) 40 mg SUBCUT DAILY [facility] Last Admin: 07/26/20 08:19 Dose: 40 mg Documented by: Hydralazine HCl (Hydralazine 10 Mg Tab) 10 mg PO Q4H PRN PRN Reason: Hypertension Ceftriaxone Sodium 2 gm/ (Sodium Chloride) 100 mls @ 200 mls/hr IV Q24H [facility] Last Admin: 07/25/20 17:00 Dose: 200 mls/hr Documented by: Clindamycin Phosphate 900 mg/ (Premix) 50 mls @ 100 mls/hr IV Q8H [facility] Last Admin: 07/26/20 08:14 Dose: 100 mls/hr Documented by: Lisinopril (Lisinopril 20 Mg Tab) 20 mg PO DAILY [facility] Last Admin: 07/26/20 08:17 Dose: 20 mg Documented by: Magnesium Oxide (Magnesium Oxide 400 Mg Tab) 400 mg PO BID [facility] Last Admin: 07/26/20 08:16 Dose: 400 mg Documented by: Ondansetron HCl (Ondansetron 4 Mg Tab.Dis) 4 mg PO Q4H PRN PRN Reason: nausea, able to take PO Oxycodone HCl (Oxycodone 5 Mg Tab) 5 mg PO Q4H PRN PRN Reason: Pain (moderate 4-6) Last Admin: 07/26/20 05:32 Dose: 5 mg Documented by: Sodium Chloride (Sodium Chloride 0.9% 10 Ml Syringe) 10 ml FLUSH ASDIRECTED PRN PRN Reason: Keep Vein Open Last Admin: 07/20/20 19:30 Dose: 10 ml Documented by: Discontinued Medications Amlodipine Besylate (Amlodipine 5 Mg Tab) 10 mg PO DAILY [facility] Bupivacaine HCl/Epinephrine Bitart (Bupivacaine 0.5%/Epinephrine 1:200,000 50 Ml Mdv) Confirm Administered Dose 50 ml .ROUTE .[facility] ONE Stop: 07/23/20 06:57 Last Admin: 07/23/20 07:13 Dose: 36 ml Documented by: Ceftriaxone Sodium (Ceftriaxone 2 Gm Advvial) Confirm Administered Dose 2 gm IV .STK-MED ONE Stop: 07/20/20 20:00 Last Admin: 07/20/20 20:09 Dose: Not Given Documented by: Fentanyl (Fentanyl 100 Mcg/2 Ml Sdv) Confirm Administered Dose 100 mcg .ROUTE .STK-MED ONE Stop: 07/23/20 06:51 Ceftriaxone Sodium 2 gm/ (Sodium Chloride) 100 mls @ 200 mls/hr IV ONETIME ONE Stop: 07/20/20 17:31 Last Admin: 07/20/20 20:07 Dose: 200 mls/hr Documented by: Sodium Chloride (Normal Saline) 1,000 mls @ 125 mls/hr IV ASDIRECTED [facility] Last Admin: 07/20/20 23:38 Dose: 125 mls/hr Documented by: Sodium Chloride (Normal Saline) 1,000 mls @ 1,000 mls/hr IV ONETIME ONE Stop: 07/20/20 19:26 Last Infusion: 07/20/20 20:08 Dose: 125 mls/hr Documented by: Sodium Chloride (Normal Saline) Confirm Administered Dose 100 mls @ as directed .ROUTE .STK-MED ONE Stop: 07/20/20 20:00 Last Admin: 07/20/20 20:09 Dose: Not Given Documented by: Potassium Chloride 10 meq/ (Premix) 100 mls @ 100 mls/hr IV Q1H [facility] Stop: 07/21/20 00:29 Last Admin: 07/21/20 00:41 Dose: 100 mls/hr Documented by: Sodium Chloride (Normal Saline) 1,000 mls @ 125 mls/hr IV ASDIRECTED [facility] Potassium Chloride 10 meq/ (Premix) 100 mls @ 100 mls/hr IV Q1H [facility] Stop: 07/21/20 12:59 Last Admin: 07/21/20 13:33 Dose: 100 mls/hr Documented by: Lidocaine HCl (Xylocaine-Mpf 1%) Confirm Administered Dose 4 mls @ as directed .ROUTE .STK-MED ONE Stop: 07/23/20 06:51 Ketamine HCl (Ketamine 500 Mg/10 Ml Mdv) Confirm Administered Dose 500 mg .ROUTE .STK-MED ONE Stop: 07/23/20 06:52 Lisinopril (Lisinopril 10 Mg Tab) 10 mg PO DAILY [facility] Last Admin: 07/22/20 08:49 Dose: 10 mg Documented by: Lisinopril (Lisinopril 10 Mg Tab) 10 mg PO ONETIME ONE Stop: 07/22/20 12:31 Last Admin: 07/22/20 12:20 Dose: 10 mg Documented by: Midazolam HCl (Midazolam 1 Mg/Ml 2 Ml Sdv) Confirm Administered Dose 2 mg .ROUTE .STK-MED ONE Stop: 07/23/20 06:51 Potassium Chloride (Potassium Chloride 20 Meq Tab.Er) 40 meq PO ONETIME ONE Stop: 07/20/20 18:28 Last Admin: 07/20/20 19:34 Dose: 40 meq Documented by: Potassium Chloride (Potassium Chloride 20 Meq Tab.Er) 40 meq PO BID [facility] Stop: 07/21/20 21:01 Last Admin: 07/21/20 20:12 Dose: 40 meq Documented by: Potassium Chloride (Potassium Chloride 20 Meq Tab.Er) 40 meq PO ONETIME ONE Stop: 07/22/20 12:31 Last Admin: 07/22/20 12:21 Dose: 40 meq Documented by: Propofol (Propofol 200 Mg/20 Ml Sdv) Confirm Administered Dose 200 mg .ROUTE . STK-MED ONE Stop: 07/23/20 06:51 Propofol (Propofol 200 Mg/20 Ml Sdv) Confirm Administered Dose 200 mg .ROUTE .STK-MED ONE Stop: 07/23/20 07:34 - Exam Physical Findings Comments:: General: Alert, Oriented, Cooperative, No Acute Distress HEENT: Pupils Equal, Pupils Reactive, EOMI, Mucous Membr. Moist/[place] Neck: Supple, No JVD Lungs: Clear to Auscultation, Normal Respiratory Effort Cardiovascular: Regular Rate, Regular Rhythm, No Murmurs GI/Abdominal Exam: Normal Bowel Sounds, Soft, Non-Tender, No Organomegaly Extremities: Normal Capillary Refill (Other (Right lower extremity covered with Dennis wrap postop)) Skin: Warm, Dry, Intact Neurological: Normal Speech, Normal Tone, Strength Equal Bilateral, Reflexes Equal Bilateral, Sensation Intact Psy/Mental Status: Alert, Normal Affect, Normal Mood
--- NOTE | 2020-08-05 11:56 | PCM.EKG ---
#1 Interpretation EKG Date: 07/22/20 Time: 10:24 Rhythm: NSR Rate (Beats/Min): 91 [place]: Normal P-Wave: Present QRS: Normal ST-T: Normal QT: Prolonged (538 ms) GA/PQ Interval: Short GA interval. At 114 ms EKG Interpretation Comments: 2 abnormal EKG
== END 2020-07-26 15:59 | disposition home or self-care (01) | DRG 579 ==
LOC: JD.ED 16:42 → JD.MS 20:41
PROVIDERS: ADMIT Family Medicine; ATTEND Family Medicine
PROC: 0J9N0ZZ Drainage of Right Lower Leg Subcutaneous Tissue and Fascia, Open Approach (ICD-10-PCS; principal; 2020-07-23)
DX: L03.115 Cellulitis of right lower limb (principal); E43 Unspecified severe protein-calorie malnutrition; E87.6 Hypokalemia; K13.0 Diseases of lips; B00.9 Herpesviral infection, unspecified; I10 Essential (primary) hypertension; F31.9 Bipolar disorder, unspecified; Z79.899 Other long term (current) drug therapy; Z88.5 Allergy status to narcotic agent; K21.9 Gastro-esophageal reflux disease without esophagitis; J45.909 Unspecified asthma, uncomplicated; G43.909 Migraine, unspecified, not intractable, without status migrainosus; E53.8 Deficiency of other specified B group vitamins; Z98.890 Other specified postprocedural states; F17.210 Nicotine dependence, cigarettes, uncomplicated; R59.0 Localized enlarged lymph nodes; L02.415 Cutaneous abscess of right lower limb; Z20.822 Contact with and (suspected) exposure to COVID-19
CPT/HCPCS: 00400; 36410; 36415; 73590-26-RT; 73590-RT; 76881-26-RT; 76881-RT; 80048; 80053; 82088; 83605; 83735; 84145; 84244; 85025; 85610; 85730; 86140; 87040; 87075; 87077; 87181; 87184; 87205; 93005; 93971-26-RT; 93971-RT; 96374; 97161-GP; 97597-GP; 97607; 99221; 99231; 99232; 99239; 99284; 99285-25; A9270-GY; J0696; J1650; J2250; J2704; J3010; J3480; J3490; J7030; U0002

== ENCOUNTER 2024-09-20 17:02 | Emergency (ER) | payer MEDICAID ==
[2024-09-20] MEDS: Ketorolac 60 MG/2 ML SDV IM ONE (18:09)
[2024-09-20] MEDS: Carvedilol 3.125 MG Tab PO ONE (19:20)
[2024-09-20] MEDS: Acetaminophen/HYDROcodone 325-5 MG Tab PO ONE (19:20)
== END 2024-09-20 19:14 | disposition home or self-care (01) ==
LOC: JD.ED 17:02
DX: S42.021A Displaced fracture of shaft of right clavicle, initial encounter for closed fracture (principal); I10 Essential (primary) hypertension; F17.200 Nicotine dependence, unspecified, uncomplicated; Z88.8 Allergy status to other drugs, medicaments and biological substances; Z88.5 Allergy status to narcotic agent; Z79.899 Other long term (current) drug therapy; W19.XXXA Unspecified fall, initial encounter
CPT/HCPCS: 73000; 73030; 96372; 99283; A9270; J1885; 99284

== ENCOUNTER 2024-10-01 08:30 | Day surgery (SDC) | payer MEDICAID ==
[2024-10-01] MEDS ORDERED: Sodium Chloride 0.9% 100 ML IV ONE (08:31)
[2024-10-01] MEDS ORDERED: Lactated Ringers 1,000 ML IV ONE (08:31)
[2024-10-01] MEDS ORDERED: Ropivacaine 0.5% 5 MG/ML 30 ML SDV ONE (09:25)
[2024-10-01] MEDS ORDERED: Lidocaine 1% 10 ML MDV ONE (09:26)
[2024-10-01] MEDS ORDERED: Ondansetron 4 MG/2 ML SDV IVPUSH PRN (09:49)
[2024-10-01] MEDS ORDERED: HYDROmorphone 0.5 MG/0.5 ML Syringe IVPUSH PRN (09:49)
[2024-10-01] MEDS ORDERED: fentaNYL 100 MCG/2 ML SDV IVPUSH PRN (09:49)
[2024-10-01] MEDS ORDERED: Midazolam 1 MG/ML 2 ML SDV ONE (10:12)
[2024-10-01] MEDS ORDERED: fentaNYL 250 MCG/5 ML SDV ONE (10:12)
[2024-10-01] MEDS ORDERED: Rocuronium 50 MG/5 ML Vial ONE (10:12)
[2024-10-01] MEDS ORDERED: Propofol 200 MG/20 ML SDV ONE (10:12)
[2024-10-01] MEDS ORDERED: Lactated Ringers 1,000 ML ONE (11:06)
[2024-10-01] MEDS ORDERED: dexmedeTOMIDine HCl 200 MCG/2 ML SDV ONE (11:06)
[2024-10-01] MEDS ORDERED: ceFAZolin 2 GM Vial ONE (11:07)
[2024-10-01] MEDS ORDERED: Ondansetron 4 MG/2 ML SDV ONE (11:51)
[2024-10-01] MEDS ORDERED: Ketorolac 30 MG/ML SDV ONE (12:15)
[2024-10-01] MEDS ORDERED: Acetaminophen/HYDROcodone 325-5 MG Tab PO ONE (12:30)
[2024-10-01] MEDS: Acetaminophen/HYDROcodone 325-5 MG Tab PO ONE (15:32)
== END 2024-10-01 15:42 | disposition home or self-care (01) ==
LOC: JD.SDS 08:30
PROVIDERS: ATTEND Orthopaedic Surgery
DX: S42.021A Displaced fracture of shaft of right clavicle, initial encounter for closed fracture (principal); I10 Essential (primary) hypertension; E78.5 Hyperlipidemia, unspecified; F32.A Depression, unspecified; K21.9 Gastro-esophageal reflux disease without esophagitis; Z79.899 Other long term (current) drug therapy; Z88.5 Allergy status to narcotic agent; X58.XXXA Exposure to other specified factors, initial encounter
CPT/HCPCS: 23515; 76000; A9270; C1713; J0690; J1885; J2003; J2250; J2405; J2704; J2795; J3010; J7120; 00450; J3490

== ENCOUNTER 2024-10-22 06:20 | Day surgery (SDC) | payer MEDICAID ==
[~2024-10-22 06:20] MED LIST: Sodium Chloride 0.9% 10 ML Syringe FLUSH PRN; Sodium Chloride 0.9% 10 ML Syringe FLUSH SCH
[2024-10-22] MEDS ORDERED: Propofol 200 MG/20 ML SDV ONE ×5 (06:29→08:38)
[2024-10-22] MEDS ORDERED: fentaNYL 100 MCG/2 ML SDV ONE (06:34)
[2024-10-22] MEDS ORDERED: Midazolam 1 MG/ML 2 ML SDV ONE (06:35)
[2024-10-22] MEDS ORDERED: Rocuronium 50 MG/5 ML Vial ONE ×2 (06:36→08:28)
[2024-10-22] MEDS ORDERED: Ondansetron 4 MG/2 ML SDV ONE (06:36)
[2024-10-22] MEDS ORDERED: Ketorolac 30 MG/ML SDV ONE (06:36)
[2024-10-22] MEDS ORDERED: Dexamethasone 4 MG/ML 5 ML MDV ONE (06:36)
[2024-10-22] MEDS ORDERED: ceFAZolin 2 GM Vial ONE (06:36)
[2024-10-22] MEDS ORDERED: dexmedeTOMIDine HCl 200 MCG/2 ML SDV ONE (06:36)
[2024-10-22] MEDS ORDERED: EPINEPHrine 1 MG/ML SDV ONE (06:39)
[2024-10-22] MEDS ORDERED: Ropivacaine 0.5% 5 MG/ML 30 ML SDV ONE (06:39)
[2024-10-22] MEDS: Lactated Ringers 1,000 ML IV SCH (06:40)
[2024-10-22] MEDS ORDERED: Bupivacaine 0.25% 10 ML SDV ONE (06:49)
[2024-10-22] MEDS ORDERED: Labetalol 100 MG/20 ML MDV ONE (07:41)
[2024-10-22] MEDS ORDERED: Lactated Ringers 1,000 ML ONE (08:14)
[2024-10-22] MEDS ORDERED: HYDROmorphone 0.5 MG/0.5 ML Syringe ONE ×2 (08:30→08:31)
[2024-10-22] MEDS ORDERED: Sugammadex Sodium 200 MG/2 ML VIAL IV ONE (08:52)
[2024-10-22] MEDS ORDERED: Ondansetron 4 MG/2 ML SDV IVPUSH PRN (09:29)
[2024-10-22] MEDS ORDERED: fentaNYL 100 MCG/2 ML SDV IVPUSH PRN (09:29)
[2024-10-22] MEDS ORDERED: HYDROmorphone 0.5 MG/0.5 ML Syringe IVPUSH PRN (09:29)
== END 2024-10-22 13:11 | disposition home or self-care (01) ==
LOC: JD.SDS 06:20
PROVIDERS: ATTEND Orthopaedic Surgery
DX: T84.298A Other mechanical complication of internal fixation device of other bones, initial encounter (principal); S42.021A Displaced fracture of shaft of right clavicle, initial encounter for closed fracture; I25.10 Atherosclerotic heart disease of native coronary artery without angina pectoris; I10 Essential (primary) hypertension; F17.210 Nicotine dependence, cigarettes, uncomplicated; Z88.5 Allergy status to narcotic agent; Z79.899 Other long term (current) drug therapy
CPT/HCPCS: 23485; 64415; 76000; C1713; J0171; J0690; J1100; J1885; J1920; J2250; J2405; J2704; J2795; J3010; J7120; 00450; J0665; J1171; J3490